=== PATIENT | male | born 1935 | race African-American/Black ===

== ENCOUNTER 2017-05-29 12:35 | Inpatient (IN) | payer MEDICARE, OTHER ==
[~2017-05-29] VITALS: Ht 177.8 cm; Wt 103.0 kg
[~2017-05-29 12:35] MED LIST: ACETAMINOP160 MG/55 ORAL; ALLOPURINOL100 M1 PO; AMLODIPINE BESY10 MG ORAL; APRESOLINE100 MG PO; ASPIRIN EC81 MG PO; BENAZEPRIL HCL10 MG ORAL; BICITRA30 ML PO; BISACODYL5 MG ORAL; CARVEDILOL6.25 MG PO; CATAPRES0.2 MG ORAL; CEFTRIAXONE1 G2 IV; COUMADIN7.5 MG ORAL; DILAUDID1 MG/M1 IVP; DOCUSATE SODIU100 MG ORAL; FAMOTIDINE20 MG PO; FLEET ENEMA133 ML RECTAL; FLOMAX0.4 MG ORAL; FUROSEMIDE40 MG PO; GENTAMICIN80 MG/50 M IV; HYDRALAZINE HC100 MG ORAL; LANTUS SOL100 UNIT/1; LASIX40 MG ORAL; LEVAQUIN750 MG ORAL; LEVOFLOXACIN250 MG ORAL; METOPROLOL TART50 M1 ORAL; NEPHROVITE1 TAB ORAL; NORCO1 E1 ORAL; NOVOLOG100 UNIT/3 SUBQ; NOVOLOG100 UNITS1 SQ; PROSCAR5 MG ORAL; RENVELA0.8 GM ORAL; STARLIX60 MG ORAL; VANCOMYCIN HCL1 G1 IVPB; VANCOMYCIN1 GM/2502 IVPB; WARFARIN SODIUM10 MG PO; ZINC SULFATE220 M1 ORAL
[2017-05-29 12:48] VITALS: BP 176/76
[2017-05-29] MEDS ORDERED: NATEGLINIDE120 MG PO (13:22)
[2017-05-29 13:23] LABS: BASOPHILS % (AUTO) 0.9 % (0.0-2.0); LYMPHOCYTES % (AUTO) 28.4 % (20.0-45.0); MEAN CORPUSCULAR HGB CONC 32.2 G/DL (32.0-36.0); MEAN CORPUSCULAR VOLUME 100 FL (80-99); MONOCYTES % (AUTO) 7.7 % (1.0-10.0); PLATELET COUNT 210 K/UL (150-450); RED BLOOD COUNT 3.72 M/UL (4.70-6.10); RED CELL DISTRIBUTION WIDTH 13.3 % (11.6-14.8); WHITE BLOOD COUNT 6.7 K/UL (4.8-10.8)
[2017-05-29 13:32] VITALS: BP 150/58
[2017-05-29 13:35] LABS: ALANINE AMINOTRANSFERASE 9 U/L (3-41); ALBUMIN/GLOBULIN RATIO 0.9 (1.0-2.7); ANION GAP 13 (5-15); ASPARTATE AMINO TRANSFERASE 12 U/L (5-40); CALCIUM 10.1 mg/dL (8.6-10.2); CARBON DIOXIDE 28 mEQ/L (20-30); CHLORIDE 95 mEQ/L (98-107); CREATININE 5.3 mg/dL (0.7-1.2); HEMOLYSIS 8; POTASSIUM 4.2 mEQ/L (3.4-4.9); SODIUM 136 mEQ/L (135-145); TOTAL PROTEIN 8.5 g/dL (6.6-8.7); TROPONIN I < 0.30 ng/mL (<=0.30)
[2017-05-29 13:45] LABS: CKMB 7.8 ng/mL (< 6.7)
[2017-05-29] MEDS ORDERED: Morphine Sulfate 2mg/ml Inj IVP PRN ×2 (13:45→16:15)
[2017-05-29 13:48] LABS: APPEARANCE,URINE CLOUDY; KETONES,URINE NEGATIVE (NEGATIVE); LEUKOCYTE ESTERASE ,URINE 2+ (NEGATIVE); NITRITE,URINE NEGATIVE (NEGATIVE); PH,URINE 9 (4.5-8.0); PROTEIN,URINE 4+ (NEGATIVE); UROBILINOGEN,URINE NORMAL MG/DL (0.0-1.0)
[2017-05-29 13:50] LABS: BACTERIA,URINE FEW /HPF; RBC,URINE TNTC /HPF (0 - 0); SQUAMOUS EPITHELIAL CELL,UR OCCASIONAL /LPF (NONE/OCC)
[2017-05-29] MEDS ORDERED: LORazepam Inj 2mg/ml 1ml IV PRN (14:00)
[2017-05-29] MEDS ORDERED: Mylanta II UD 30ml ORAL PRN (14:00)
[2017-05-29] MEDS ORDERED: cefTRIAXone 1 GM in NS 55 ML IVPB ONE (14:15)
[2017-05-29] MEDS ORDERED: HYDROmorphone 1mg/ml Carpuject IVP PRN (15:00)
--- NOTE | 2017-05-29 15:04 | Emergency Room Report ---
History of Present Illness General Chief Complaint: Male Urogenital Problems Source: Patient Present Illness HPI 82-year-old male presents ED complaining of hematuria for the last few days. Also complaining of some dysuria. Pain is a 5/10, throbbing, nonradiating. Denies fevers chills. Denies nausea or vomiting. Denies chest pain or short of breath. No other aggravating relieving factors. Denies any other associated symptoms Allergies: Coded Allergies: No Known Allergies (Unverified , 08/12/14) Patient History Past Medical History: DM, HTN, renal disease, dialysis Past Surgical History: none Pertinent Family History: none Social History: Denies: alcohol use, drug use, smoking Immunizations: UTD Reviewed Nursing Documentation: PMH: Agreed, PSxH: Agreed Nursing Documentation-PMH Hx Cardiac Problems: Yes Hx Hypertension: Yes Hx Diabetes: Yes Hx Cancer: No Hx Gastrointestinal Problems: No Hx Dialysis: Yes - M-W-F Hx Neurological Problems: No Review of Systems All Other Systems: negative except mentioned in HPI Physical Exam Vital Signs Date Time Temp Pulse Resp B/P Pulse Ox O2 Delivery O2 Flow Rate FiO2 05/29/17 12:40 98.8 84 18 176/76 98 Room Air Sp02 EP Interpretation: reviewed, normal General Appearance: no apparent distress, alert, GCS 15, non-toxic Head: normocephalic Eyes: bilateral eye PERRL, bilateral eye normal inspection ENT: normal ENT inspection Neck: normal inspection Respiratory: chest non-tender, lungs clear, normal breath sounds, speaking full sentences Cardiovascular #1: regular rate, rhythm, no edema Gastrointestinal: normal bowel sounds, non tender, soft, non-distended, no guarding, no rebound Rectal: deferred Genitourinary: no CVA tenderness Musculoskeletal: other - bilateral LE amputations Neurologic: alert, oriented x3, responsive, motor strength/tone normal, sensory intact, speech normal Psychiatric: normal inspection Skin: normal inspection Lymphatic: normal inspection Medical Decision Making Diagnostic Impression: Primary Impression: Hematuria Qualified Codes: R31.9 - Hematuria, unspecified Additional Impressions: UTI (lower urinary tract infection) ESRD (end stage renal disease) on dialysis ER Course Hospital Course 82-year-old male presents ED complaining of hematuria and dysuria Differential diagnoses include: Pneumonia, UTI, sepsis, dehydration, PA/ unstable angina Clinical course Patient placed on stretcher. On cardiac catheterization technician with stable vitals are ED course. After initial history and physical, I ordered labs, EKG, chest x-ray, blood cultures, UA. Labs - BUN/Cr elevated, no leukocytosis, troponins negative, UA grossly positive for UTI + blood EKG - NSr, no acute changes interpreted by me CXR - cardiomegaly. effusion. Abx given. Case discussed with Dr Lin and they agreed to admit patient to their service for further care and support I feel this is a highly complex case requiring extensive working including EKG/ Rhythm strip, Xray/CT/US, Blood/urine lab work, repeat exams while in ED, and administration of strong opiates/narcotics for pain control, admission to hospital or close patient follow up. Diagnosis - hematuria, UTI, ESRD Patient admitted to telemetry in serious condition Labs Test 05/29/17 13:00 05/29/17 13:25 White Blood Count 6.7 K/UL (4.8-10.8) Red Blood Count 3.72 M/UL (4.70-6.10) Hemoglobin 11.9 G/DL (14.2-18.0) Hematocrit 37.0 % (42.0-52.0) Mean Corpuscular Volume 100 FL (80-99) Mean Corpuscular Hemoglobin 32.0 PG (27.0-31.0) Mean Corpuscular Hemoglobin Concent 32.2 G/DL (32.0-36.0) Red Cell Distribution Width 13.3 % (11.6-14.8) Platelet Count 210 K/UL (150-450) Mean Platelet Volume 7.0 FL (6.5-10.1) Neutrophils (%) (Auto) 59.0 % (45.0-75.0) Lymphocytes (%) (Auto) 28.4 % (20.0-45.0) Monocytes (%) (Auto) 7.7 % (1.0-10.0) Eosinophils (%) (Auto) 4.0 % (0.0-3.0) Basophils (%) (Auto) 0.9 % (0.0-2.0) Sodium Level 136 mEQ/L (135-145) Potassium Level 4.2 mEQ/L (3.4-4.9) Chloride Level 95 mEQ/L (98-107) Carbon Dioxide Level 28 mEQ/L (20-30) Anion Gap 13 (5-15) Blood Urea Nitrogen 42 mg/dL (7-23) Creatinine 5.3 mg/dL (0.7-1.2) Estimat Glomerular Filtration Rate mL/min (>60) Glucose Level 189 mg/dL (74-106) Lactic Acid Level 1.70 mmol/L (0.66-2.22) Calcium Level 10.1 mg/dL (8.6-10.2) Total Bilirubin 0.4 mg/dL (0.0-1.2) Aspartate Amino Transf (AST/SGOT) 12 U/L (5-40) Alanine Aminotransferase (ALT/SGPT) 9 U/L (3-41) Alkaline Phosphatase 86 U/L (40-129) Total Creatine Kinase 577 U/L (38-174) Creatine Kinase MB 7.8 ng/mL (< 6.7) Creatine Kinase MB Relative Index 1.3 Troponin I < 0.30 ng/mL (<=0.30) Total Protein 8.5 g/dL (6.6-8.7) Albumin 4.1 g/dL (3.5-5.2) Globulin 4.4 g/dL Albumin/Globulin Ratio 0.9 (1.0-2.7) Urine Color Red Urine Appearance Cloudy Urine pH 9 (4.5-8.0) Urine Specific [place] 1.015 (1.005-1.035) Urine Protein 4+ (NEGATIVE) Urine Glucose (UA) 2+ (NEGATIVE) Urine Ketones Negative (NEGATIVE) Urine Occult Blood 5+ (NEGATIVE) Urine Nitrite Negative (NEGATIVE) Urine Bilirubin Negative (NEGATIVE) Urine Urobilinogen Normal MG/DL (0.0-1.0) Urine Leukocyte Esterase 2+ (NEGATIVE) Urine RBC Tntc /HPF (0 - 0) Urine WBC 10-15 /HPF (0 - 0) Urine Squamous Epithelial Cells Occasional /LPF Urine Bacteria Few /HPF (NONE) EKG Diagnostic Results Rate: normal Rhythm: NSR ST Segments: no acute changes ASA given to the pt in ED: No Rhythm Strip Diag. Results EP Interpretation: yes Rhythm: NSR, no PVC's, no ectopy Chest X-Ray Diagnostic Results Chest X-Ray Diagnostic Results : Chest X-Ray Ordered: Yes # of Views/Limited/Complete: 1 View Indication: Other EP Interpretation: Yes Interpretation: no consolidation, no pneumothorax, other - cardioegaly. b/l eff Impression: Other - cardiomegaly. b/l effusin Interpreting ER Provider: Electronically signed by Miguelito Gan MD Last Vital Signs Date Time Temp Pulse Resp B/P Pulse Ox O2 Delivery O2 Flow Rate FiO2 05/29/17 13:32 98.8 79 19 150/58 100 Room Air Status: improved Disposition: ADMITTED INPATIENT Condition: Serious Referrals: YNES LIN (PCP) MIGUELITO GAN M.D. May 29, 2017 15:04
[2017-05-29 15:26] VITALS: BP 189/95
[2017-05-29] MEDS ORDERED: cloNIDine 0.2mg Tab ORAL PRN (16:30)
[2017-05-29] MEDS: Minoxidil 2.5mg tab ORAL SCH ×2 (17:32→23:59)
[2017-05-29] MEDS: NovoLOG Insulin Flexpen SUBQ SCH ×2 (17:35→21:56)
[2017-05-29] MEDS: Renvela 800mg Pkt ORAL SCH (17:42)
[2017-05-29 19:48] VITALS: BP 177/87
[2017-05-29] MEDS ORDERED: Miralax 17gm pkt ORAL PRN (21:00)
[2017-05-29] MEDS ORDERED: cloNIDine 0.2mg Tab ORAL SCH (21:00)
[2017-05-29] MEDS ORDERED: Zolpidem 5mg tab ORAL PRN (21:00)
[2017-05-29] MEDS: Tamsulosin 0.4mg cap ORAL SCH (21:54)
[2017-05-29] MEDS: Carvedilol 6.25mg Tab ORAL SCH (21:54)
--- NOTE | 2017-05-29 22:23 | Infectious Diseases Prog Note ---
Assessment/Plan Problems: (1) UTI (lower urinary tract infection) Assessment & Plan: will send urine culture and start cefepime empirically (2) Dysuria Assessment & Plan: due to uti, will start cefepime empirically pending culture results (3) DM (diabetes mellitus) Assessment & Plan: recommend tight glycemic control to keep blood glucose between 80-120 (4) ESRD (end stage renal disease) on dialysis Assessment & Plan: on HD, renal is following Subjective Allergies: Coded Allergies: No Known Allergies (Unverified , 08/12/14) Objective Vital Signs Last 24 Hour Vital Signs Date Time Temp Pulse Resp B/P Pulse Ox O2 Delivery O2 Flow Rate FiO2 05/29/17 21:54 86 177/87 05/29/17 19:48 98.7 86 20 177/87 99 Room Air 05/29/17 19:03 83 05/29/17 17:32 175/79 05/29/17 16:28 189/95 05/29/17 16:00 87 05/29/17 15:26 98.1 90 20 189/95 96 Room Air 05/29/17 15:14 98.8 79 19 161/71 100 Room Air 05/29/17 13:32 98.8 79 19 150/58 100 Room Air 05/29/17 12:48 98.8 84 18 176/76 98 Room Air 05/29/17 12:40 98.8 84 18 176/76 98 Room Air Height (Feet): 5 Height (Inches): 10.00 Weight (Pounds): 200 Laboratory Tests Test 05/29/17 13:00 05/29/17 13:25 05/29/17 16:10 White Blood Count 6.7 K/UL (4.8-10.8) Red Blood Count 3.72 M/UL (4.70-6.10) L Hemoglobin 11.9 G/DL (14.2-18.0) L Hematocrit 37.0 % (42.0-52.0) L Mean Corpuscular Volume 100 FL (80-99) H Mean Corpuscular Hemoglobin 32.0 PG (27.0-31.0) H Mean Corpuscular Hemoglobin Concent 32.2 G/DL (32.0-36.0) Red Cell Distribution Width 13.3 % (11.6-14.8) Platelet Count 210 K/UL (150-450) Mean Platelet Volume 7.0 FL (6.5-10.1) Neutrophils (%) (Auto) 59.0 % (45.0-75.0) Lymphocytes (%) (Auto) 28.4 % (20.0-45.0) Monocytes (%) (Auto) 7.7 % (1.0-10.0) Eosinophils (%) (Auto) 4.0 % (0.0-3.0) H Basophils (%) (Auto) 0.9 % (0.0-2.0) Sodium Level 136 mEQ/L (135-145) Potassium Level 4.2 mEQ/L (3.4-4.9) Chloride Level 95 mEQ/L (98-107) L Carbon Dioxide Level 28 mEQ/L (20-30) Anion Gap 13 (5-15) Blood Urea Nitrogen 42 mg/dL (7-23) H Creatinine 5.3 mg/dL (0.7-1.2) H Estimat Glomerular Filtration Rate mL/min (>60) Glucose Level 189 mg/dL (74-106) H Lactic Acid Level 1.70 mmol/L (0.66-2.22) Calcium Level 10.1 mg/dL (8.6-10.2) Total Bilirubin 0.4 mg/dL (0.0-1.2) Aspartate Amino Transf (AST/SGOT) 12 U/L (5-40) Alanine Aminotransferase (ALT/SGPT) 9 U/L (3-41) Alkaline Phosphatase 86 U/L (40-129) Total Creatine Kinase 577 U/L (38-174) H Creatine Kinase MB 7.8 ng/mL (< 6.7) H Creatine Kinase MB Relative Index 1.3 Troponin I < 0.30 ng/mL (<=0.30) Total Protein 8.5 g/dL (6.6-8.7) Albumin 4.1 g/dL (3.5-5.2) Globulin 4.4 g/dL Albumin/Globulin Ratio 0.9 (1.0-2.7) L Urine Color Red Urine Appearance Cloudy Urine pH 9 (4.5-8.0) Urine Specific [place] 1.015 (1.005-1.035) Urine Protein 4+ (NEGATIVE) H Urine Glucose (UA) 2+ (NEGATIVE) H Urine Ketones Negative (NEGATIVE) Urine Occult Blood 5+ (NEGATIVE) H Urine Nitrite Negative (NEGATIVE) Urine Bilirubin Negative (NEGATIVE) Urine Urobilinogen Normal MG/DL (0.0-1.0) Urine Leukocyte Esterase 2+ (NEGATIVE) H Urine RBC Tntc /HPF (0 - 0) H Urine WBC 10-15 /HPF (0 - 0) H Urine Squamous Epithelial Cells Occasional /LPF Urine Bacteria Few /HPF (NONE) Calcium (Send out) Pending Phosphorus Level 4.0 mg/dL (2.5-4.8) Parathyroid Hormone (Intact) Pending Current Medications Medications (Trade) Dose Ordered Sig/Amanda Route PRN Reason Start Time Stop Time Status Last Admin Dose Admin Acetaminophen (Tylenol) 650 mg Q4H PRN ORAL fever>100.5 05/29/17 14:00 06/28/17 13:59 Al Hydroxide/Mg Hydroxide (Mylanta II) 30 ml Q6H PRN ORAL dyspepsia 05/29/17 14:00 06/28/17 13:59 Allopurinol (Zyloprim) 100 mg DAILY ORAL 05/30/17 09:00 06/29/17 08:59 Amlodipine Besylate (Norvasc) 10 mg DAILY ORAL 05/30/17 09:00 06/29/17 08:59 Benazepril HCl (Lotensin) 25 mg DAILY ORAL 05/30/17 09:00 06/29/17 08:59 Carvedilol (Coreg) 6.25 mg Q12HR ORAL 05/29/17 21:00 06/28/17 20:59 05/29/17 21:54 Cefepime HCl/ Dextrose (Maxipime/D5W) 55 ml @ 110 mls/hr EVERY 12 HOURS IVPB 05/30/17 09:00 06/06/17 08:59 UNV Clonidine HCl (Catapres) 0.2 mg TIDPRN PRN ORAL SBP > 160 05/29/17 16:30 06/28/17 16:29 05/29/17 16:28 Dextrose (Dextrose 50%) STAT PRN IV Hypoglycemia 05/29/17 15:00 06/28/17 14:59 Hydromorphone HCl (Dilaudid) 1 mg Q3H PRN IVP SEVERE PAIN 7-10 05/29/17 15:00 06/05/17 14:59 Insulin Aspart (NovoLOG) BEFORE MEALS AND HS SUBQ 05/29/17 16:30 06/28/17 16:29 05/29/17 21:56 Lorazepam (Ativan 2mg/ml 1ml) 0.5 mg Q4H PRN IV For Anxiety 05/29/17 14:00 06/05/17 13:59 Minoxidil (Loniten) 2.5 mg Q12HR ORAL 05/29/17 17:00 06/28/17 16:59 05/29/17 17:32 Morphine Sulfate 1 mg 1 mg Q4H PRN IVP For Pain Scale 4-6 05/29/17 16:15 06/05/17 13:44 Ondansetron HCl (Zofran) 4 mg Q6H PRN IVP Nausea & Vomiting 05/29/17 14:00 06/28/17 13:59 Polyethylene Glycol (Miralax) 17 gm HSPRN PRN ORAL Constipation 05/29/17 21:00 06/28/17 20:59 Sevelamer Carbonate (Renvela) 800 mg THREE TIMES A DAY ORAL 05/29/17 18:00 06/28/17 17:59 05/29/17 17:42 Tamsulosin HCl (Flomax) 0.4 mg QHS ORAL 05/29/17 21:00 06/28/17 20:59 05/29/17 21:54 Zolpidem Tartrate (Ambien) 5 mg HSPRN PRN ORAL Insomnia 05/29/17 21:00 06/28/17 20:59 Christin Riley M.D. May 29, 2017 22:23
[2017-05-29 23:51] VITALS: BP 145/88
--- NOTE | 2017-05-30 01:00 | Consultation ---
DATE OF CONSULTATION: 05/29/2017 CARDIOLOGY CONSULTATION REFERRING PHYSICIAN: Varun Cee D.O. REASON FOR CONSULTATION: Management of accelerated hypertension. HISTORY OF PRESENT ILLNESS: The patient is a very delightful 82-year-old gentleman, who presents to the hospital with complaints of hematuria and dysuria. The patient on arrival to the hospital had blood pressure of 176/76 mmHg. He has end-stage renal disease with uncontrolled hypertension. Cardiology consultation was made at the request of Dr. Cee for management of this condition. During his stay in the emergency department, the blood pressure was as high as 189/95 mmHg. PAST MEDICAL HISTORY: Includes diabetes mellitus, end-stage renal disease on hemodialysis, hypertension, peripheral arterial disease, and status post bilateral [id number]-[id number]-[id number] amputation. PAST SURGICAL HISTORY: Bilateral [id number]-[id number] amputation. MEDICATIONS: List of medications acetaminophen 650 mg q.4 h. p.r.n. pain and fever, allopurinol 100 mg p.o. daily, amlodipine 10 mg p.o. daily, aspirin 81 mg p.o. daily, benazepril 20 mg p.o. daily, bisacodyl 10 mg p.o. b.i.d., carvedilol 6.25 mg p.o. twice daily, ceftriaxone 1 g IV daily, Catapres 0.2 mg q.12 h., Colace 100 mg p.o. twice daily, famotidine 20 mg p.o. twice daily, finasteride 5 mg p.o. daily, Lasix 40 mg p.o. daily, hydralazine 100 mg p.o. three times daily, [place] 7.5/325 mg one tablet q.4 h. p.r.n. pain, insulin NovoLog 6 units subcutaneous before meals, insulin Lantus 20 units every day at breakfast time, levofloxacin 250 mg p.o. daily, metoprolol 50 mg p.o. twice daily, Fleet Enema 133 mL rectal daily, Starlix 60 mg three times daily, Renvela 800 mg three times daily, sodium citrate 30 mL p.o. t.i.d., Flomax 0.4 mg nightly, warfarin 10 mg half a tablet daily, and zinc sulfate 220 mg daily. SOCIAL HISTORY: Denies any tobacco, alcohol, or illicit drug use. FAMILY HISTORY: No premature coronary artery disease in the first-degree relatives. REVIEW OF SYSTEMS: HEENT: Denies any headache, diplopia, or blurred vision. Constitutional: Denies any fever, chills, night sweats, or weight loss. Cardiovascular: Denies any chest pain, shortness breath, PND, or orthopnea. The patient gets around in wheelchair and not having much activities. Pulmonary: Denies any cough, hemoptysis, or wheezing. Gastrointestinal: Denies any nausea, vomiting, diarrhea, constipation, abdominal pain, or GI bleed. Genitourinary: Hematuria and dysuria. Neurologic: Denies any motor dysfunction, sensory deficit, or altered speech. Musculoskeletal: The patient has amputation of both legs below the knee. PHYSICAL EXAMINATION: VITAL SIGNS: Blood pressure upon arrival to the ED 176/76, respirations of 18, pulse of 84, temperature 98.2 degrees Fahrenheit, and O2 saturation of 98% on room air. GENERAL: The patient is a very delightful 82-year-old gentleman, in no apparent respiratory distress. HEENT: Atraumatic and normocephalic. Pupils are equal, round, and reactive to light and accommodation. Extraocular muscles intact. NECK: JVP less than 5 cm. No carotid bruit. Carotid upstrokes 2+ bilaterally. LUNGS: Clear to auscultation bilaterally. CARDIOVASCULAR: Normal S1 and S2. Regular rate and rhythm. No murmurs, gallops, or rubs. PMI is at fourth intercostal space at the midclavicular line. ABDOMEN: Soft, nontender, and nondistended. No hepatosplenomegaly. Positive bowel sounds. EXTREMITIES: No evidence of edema, clubbing, or cyanosis. DIAGNOSTIC DATA: A 2D echocardiography from February 2016 had shown moderate concentric left ventricular hypertrophy, LVEF of 65% to 70%, large pleural effusion, small pericardial effusion, grade 1 LV diastolic dysfunction, and mild pulmonary regurgitation. LABORATORY FINDINGS: WBC 6.7, hemoglobin 11.9, hematocrit 37, and platelet count is 210,000. Sodium is 136, potassium is 4.2, chloride 95, bicarbonate is 28, BUN of 42, and creatinine of 5.3. Troponin I less than 0.3. The 12-lead electrocardiogram shows sinus rhythm at a rate of [address] axis. No ST and T-wave abnormalities. ASSESSMENT AND PLAN: The patient is a very pleasant, 82-year-old gentleman, who is seen in Cardiology consultation at the request of Dr. Cee. 1. Accelerated hypertension. I would like to continue the patient's carvedilol and most likely increasing the dose of this medication over the next few days to an optimal 25 mg twice daily. Instead of hydralazine, I would like to start him on low dose of minoxidil. Hopefully can eliminate the Catapres around the clock basis and use it as needed. I will continue monitoring the blood pressure throughout the stay. A 2D echocardiography from February 2016 had shown hypertensive heart disease with left ventricular ejection fraction of about approximately 60% and grade 1 left ventricular diastolic dysfunction. I will obtain another one since this has been more than a year we had 2D echocardiography from him. 2. End-stage renal disease. 3. Hematuria/dysuria, concerned about urinary tract infection. 4. History of . The patient will benefit from combination of aspirin and atorvastatin. 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 We will start him on 40 mg of atorvastatin at night time. I would like to thank, Dr. Cee, for allowing me to participate in care of this patient. Franklyn Mckeon M.D. DR: Omar JOB#: [id number] CC:
--- NOTE | 2017-05-30 01:15 | Consultation ---
DATE OF CONSULTATION: 05/29/2017 NEPHROLOGY CONSULTATION REFERRING PHYSICIAN: Dr reddy REASON FOR CONSULTATION: End-stage renal disease, need for dialysis. HISTORY OF PRESENT ILLNESS: The patient is an unfortunate 82-year-old male with past medical history significant for history of BPH; history of TURP; history of bilateral lower extremity amputation; history of hypertension and diabetes; history of PermCath and fistula placement, currently receiving dialysis catheter through the left upper extremity; history of vertebral osteomyelitis; and history of chronic hematuria in the past with a kidney stone. At this time, he presented to [facility] [place] complaining of hematuria. Apparently, the patient had hematuria, 3 about last week. After he had his dialysis, he came home and he had a painless hematuria and he has been having it for the last few days. So, he presented to emergency room and got admitted with a diagnosis of hematuria and end-stage renal disease. I was called for management of renal disease and electrolyte imbalance. PAST MEDICAL HISTORY: 1. History of end-stage renal disease. 2. Anemia of chronic kidney disease. 3. Renal osteodystrophy. 4. Hypertension. 5. Diabetes. 6. Dyslipidemia. 7. History of Benign prostatic hypertrophy. 8. History of gout. 9. History of kidney stone. 10. History of osteomyelitis of the L4-L5. PAST SURGICAL HISTORY: 1. History of bilateral lower extremity amputation. 2. History of TURP. 3. History of AV fistula placement. 4. History of PermCath placement. HOME MEDICATIONS: 1. Flomax. 2. Lactulose. 3. Allopurinol. 4. Norvasc. 5. Temazepam. 6. Metoprolol. 7. Proscar. ALLERGIES: No known drug allergies. SOCIAL HISTORY: He lives at home with the family. His daughter and his granddaughter are taking care of him. There is no history of tobacco, alcohol, or drug use. FAMILY HISTORY: Noncontributory. REVIEW OF SYSTEMS: General: He complained of generalized weakness. Denied any fever, chills, or night sweats. Head And Neck: Denies any dysphagia, odynophagia, blurry vision, headache, or neck stiffness. Pulmonary: Denies any shortness of breath, cough, or sputum. Cardiovascular: Denies any chest pain or palpitation. Gastrointestinal: Denies any nausea, vomiting, diarrhea, hematemesis, or hematochezia. Genitourinary: Complained of hematuria. No dysuria. No frequency. No hesitancy. PHYSICAL EXAMINATION: GENERAL: The patient has temperature of 98 degrees, blood pressure 176/76, pulse rate of 84, and respiratory rate of 18. HEAD AND NECK: No JVP. No LAD. No thyromegaly. Extraocular movements intact. Pupils are reactive to light and accommodation. LUNGS: Clear to auscultation. CARDIAC: Regular rate and rhythm. S1 and S2. No murmur. No rub. ABDOMEN: Soft, nontender, and nondistended. EXTREMITIES: Bilateral ghdmz-flm-[id number] amputation. No clubbing. No cyanosis. The patient has a Houser catheter draining some bloody urine. LABORATORY VALUES: The patient had WBC count of 6.7, hemoglobin of 11.9, hematocrit of 37, and platelet count of 210,000. Chemistry reveals sodium of 136, potassium 4.2, chloride 95, bicarbonate 28, BUN of 42, creatinine of 5.3, and glucose of 189. Calcium of 10.1. AST of 12, ALT of 9, and total CPK of 577. His urine has hematuria. The patient's x-ray is still pending. ASSESSMENT: 1. End-stage renal disease. 2. Anemia of chronic kidney disease. 3. Renal osteodystrophy. 4. Hypertension. 5. Hematuria. 6. History of kidney stone. PLAN: Plan for the patient to receive dialysis on Tuesday, Tuesday, and Tuesday. Check calcium, phosphorus, and PTH for evaluation of renal osteodystrophy. I would also consider CT of the abdomen for evaluation of bladder and kidney. Consider urology consultation. Consider you start antihypertensive medication. Goal of blood pressure for this patient is less than 130/75. Monitoring electrolytes closely. At the end, I would like to thank Dr. Varun Reddy for allowing me to participate in the care of this patient. aJida Garzon M.D. DR: MERCED JOB#: [id number] CC: TRITSAN
[2017-05-30 03:48] VITALS: BP 119/60
[2017-05-30] MEDS: NovoLOG Insulin Flexpen SUBQ SCH ×4 (06:11→21:06)
[2017-05-30 08:00] VITALS: BP 131/67
[2017-05-30 08:04] LABS: BASOPHILS % (AUTO) 0.6 % (0.0-2.0); EOSINOPHILS % (AUTO) 2.3 % (0.0-3.0); MEAN CORPUSCULAR HEMOGLOBIN 33.5 PG (27.0-31.0); MEAN CORPUSCULAR HGB CONC 33.6 G/DL (32.0-36.0); MEAN CORPUSCULAR VOLUME 100 FL (80-99); MEAN PLATELET VOLUME 6.8 FL (6.5-10.1); MONOCYTES % (AUTO) 6.3 % (1.0-10.0); NEUTROPHILS % (AUTO) 78.8 % (45.0-75.0); PLATELET COUNT 169 K/UL (150-450); RED BLOOD COUNT 3.12 M/UL (4.70-6.10); WHITE BLOOD COUNT 7.6 K/UL (4.8-10.8)
[2017-05-30 08:22] LABS: ALANINE AMINOTRANSFERASE 7 U/L (3-41); ALBUMIN/GLOBULIN RATIO 0.8 (1.0-2.7); ANION GAP 11 (5-15); ASPARTATE AMINO TRANSFERASE 11 U/L (5-40); CALCIUM 9.2 mg/dL (8.6-10.2); CARBON DIOXIDE 26 mEQ/L (20-30); CHLORIDE 95 mEQ/L (98-107); CHOLESTEROL 138 mg/dL (< 200); CHOLESTEROL/HDL RATIO 6.3 (3.3-4.4); CREATININE 6.1 mg/dL (0.7-1.2); HEMOLYSIS 3; LDL CHOLESTEROL (CALC.) 77 mg/dL (60-99); POTASSIUM 4.7 mEQ/L (3.4-4.9); SODIUM 132 mEQ/L (135-145)
[2017-05-30] MEDS: Minoxidil 2.5mg tab ORAL SCH ×2 (09:00→21:07)
[2017-05-30] MEDS ORDERED: Cefepime HCl 1 GM in D5W 55 ML IVPB SCH (09:00)
[2017-05-30] MEDS ORDERED: Benazepril 10mg tab ORAL SCH (09:00)
[2017-05-30] MEDS: Carvedilol 6.25mg Tab ORAL SCH ×2 (09:00→21:07)
[2017-05-30] MEDS: Allopurinol 100mg Tab ORAL SCH (09:21)
[2017-05-30] MEDS: Renvela 800mg Pkt ORAL SCH ×3 (09:21→18:07)
--- NOTE | 2017-05-30 10:25 | Diagnostic Imaging Report ---
Indication: WEAK Technique: One view of the chest Comparison: none Findings: There is a large left-sided pleural effusion again demonstrated. The lungs and pleural spaces are otherwise clear. Heart size is normal. Impression: Large left pleural effusion versus chronic thickening, similar to prior study 02/18/2016
--- NOTE | 2017-05-30 11:34 | Consultation ---
History of Present Illness General Date patient seen: May 30, 2017 Chief Complaint: Male Urogenital Problems Referring physician: Dr. Cee Reason for Consultation: Pleural effusion Present Illness HPI 82-year-old male with hx of DM bilateral BKA presents to ED complaining of hematuria and some dysuria for the last few days. Pain is a 5/10, throbbing, nonradiating. Denies fevers chills. Denies nausea or vomiting. Denies chest pain or short of breath. No other aggravating relieving factors. Denies any other associated symptoms. Pt is amitted to telemetry for Gross Hematuria. His CXR showed pleural effusion. I was asked to evaluate his pleural effusion Allergies: Coded Allergies: No Known Allergies (Unverified , 08/12/14) Medication History Scheduled Amlodipine Besylate* (Amlodipine Besylate*), 10 MG ORAL DAILY, (Reported) Benazepril Hcl* (Benazepril Hcl*), 25 MG ORAL DAILY, (Reported) Bisacodyl* (Dulcolax*), 10 MG ORAL BID, (Reported) Carvedilol* (Carvedilol*), 625 PO BID, (Reported) Clonidine Hcl* (Catapres*), 0.2 MG ORAL Q12HR, (Reported) Docusate Sodium* (Docusate Sodium*), 100 MG ORAL TWICE A DAY, (Reported) Famotidine (Famotidine), 20 PO BID, (Reported) Finasteride* (Proscar*), 5 MG ORAL DAILY, (Reported) Gentamicin In Nacl, Iso-Osm (Gentamicin 80 Mg/Ns 50 Ml Pb), 80 MG IV EVERY OTHER DAY Hydralazine HCl (Hydralazine HCl), 100 PO TID, (Reported) Hydralazine Hcl* (Hydralazine Hcl*), 100 MG ORAL EVERY 8 HOURS, (Reported) Hydromorphone HCl (Hydromorphone HCl), 1 MG IVP Q3HR, (Reported) Insulin Aspart (Novolog Flexpen), 6 UNITS SQ AC, (Reported) Insulin Aspart* (Novolog*), 0 SUBQ AC+HS, (Reported) Insulin Glargine (Lantus), 20 UNIT ACBREAKFAST, (Reported) Levofloxacin (Levofloxacin*), 250 MG ORAL DAILY, (Reported) Metoprolol Tartrate* (Metoprolol Tartrate*), 50 MG ORAL EVERY 12 HOURS, ( Reported) Na Phos,M-B/Na Phos,Di-Ba* (Fleet Enema*), 133 ML RECTAL DAILY, (Reported) Nateglinide (Nateglinide), 120 MG PO DAILY, (Reported) Nateglinide* (Starlix*), 60 MG ORAL THREE TIMES A DAY, (Reported) Sevelamer Carbonate* (Renvela*), 800 MG ORAL THREE TIMES A DAY, (Reported) Sodium Citrate (Sod Citrate-Citric Acid Soln), 30 ML PO TID, (Reported) Tamsulosin HCl (Flomax), 0.4 MG ORAL QHS, (Reported) Vancomycin Hcl/D5w (Vancomycin-D5w 1 G/250 Ml), 1 GM IVPB EVERY OTHER DAY Vitamin B Cmplx/Vit C/Folic AC (Nephro-Pj Tablet), 1 TAB ORAL DAILY, (Reported ) Warfarin Sod* (Warfarin Sod*), 0.5 PO DAILY, (Reported) Zinc Sulfate (Zinc Sulfate*), 220 MG ORAL DAILY, (Reported) Scheduled PRN Acetaminophen* (Acetaminophen*), 650 MG ORAL Q4HR PRN for Mild Pain/Temp > 100.5 , (Reported) Acetaminophen/Hydrocodone (Somers 7.5-325 Tablet), 1 TAB ORAL Q4HR PRN for Moderate Pain (Pain Scale 4-6), (Reported) Miscellaneous Medications Allopurinol* (Allopurinol*), 100 PO, (Reported) Aspirin Ec* (Aspirin Ec*), 81 PO, (Reported) Ceftriaxone Sodium (Ceftriaxone), 1 GM IV, (Reported) Furosemide* (Lasix*), 40 PO, (Reported) Patient History Healthcare decision maker Resuscitation status Advanced Directive on File Past Medical/Surgical History Past Medical/Surgical History: (1) DM (diabetes mellitus) (2) History of below knee amputation (3) Anemia in CKD (chronic kidney disease) (4) ESRD (end stage renal disease) on dialysis Review of Systems All Other Systems: negative except mentioned in HPI Physical Exam General Appearance: WD/WN, no apparent distress Lines, tubes and drains: peripheral, central line HEENT: normocephalic, atraumatic Neck: non-tender, normal alignment, supple Respiratory/Chest: chest wall non-tender, lungs clear Cardiovascular/Chest: normal peripheral pulses, normal rate Abdomen: normal bowel sounds, non tender Genitourinary/Rectal: normal genital exam, normal rectal exam Extremities: normal range of motion, other - BKA Last 24 Hour Vital Signs Date Time Temp Pulse Resp B/P Pulse Ox O2 Delivery O2 Flow Rate FiO2 05/30/17 08:00 98.2 74 20 131/67 97 Room Air 05/30/17 03:48 98.1 71 20 119/60 95 Room Air 05/30/17 03:47 70 05/30/17 00:00 86 05/29/17 23:59 145/88 05/29/17 23:51 98.4 75 21 145/88 97 Room Air 05/29/17 21:54 86 177/87 05/29/17 19:48 98.7 86 20 177/87 99 Room Air 05/29/17 19:03 83 05/29/17 17:32 175/79 05/29/17 16:28 189/95 05/29/17 16:00 87 05/29/17 15:26 98.1 90 20 189/95 96 Room Air 05/29/17 15:14 98.8 79 19 161/71 100 Room Air 05/29/17 13:32 98.8 79 19 150/58 100 Room Air 05/29/17 12:48 98.8 84 18 176/76 98 Room Air 05/29/17 12:40 98.8 84 18 176/76 98 Room Air Intake and Output 05/29/17 05/30/17 19:00 07:00 Intake Total 1055 ml Output Total 0 ml 700 ml Balance 1055 ml -700 ml Intake IV Total 1055 ml Output Urine Total 0 ml 700 ml # Bowel Movements 1 Laboratory Tests Test 05/29/17 13:00 05/29/17 13:25 05/29/17 16:10 05/30/17 07:00 White Blood Count 6.7 K/UL (4.8-10.8) 7.6 K/UL (4.8-10.8) Red Blood Count 3.72 M/UL (4.70-6.10) L 3.12 M/UL (4.70-6.10) L Hemoglobin 11.9 G/DL (14.2-18.0) L 10.5 G/DL (14.2-18.0) L Hematocrit 37.0 % (42.0-52.0) L 31.2 % (42.0-52.0) L Mean Corpuscular Volume 100 FL (80-99) H 100 FL (80-99) H Mean Corpuscular Hemoglobin 32.0 PG (27.0-31.0) H 33.5 PG (27.0-31.0) H Mean Corpuscular Hemoglobin Concent 32.2 G/DL (32.0-36.0) 33.6 G/DL (32.0-36.0) Red Cell Distribution Width 13.3 % (11.6-14.8) 13.0 % (11.6-14.8) Platelet Count 210 K/UL (150-450) 169 K/UL (150-450) Mean Platelet Volume 7.0 FL (6.5-10.1) 6.8 FL (6.5-10.1) Neutrophils (%) (Auto) 59.0 % (45.0-75.0) 78.8 % (45.0-75.0) H Lymphocytes (%) (Auto) 28.4 % (20.0-45.0) 12.0 % (20.0-45.0) L Monocytes (%) (Auto) 7.7 % (1.0-10.0) 6.3 % (1.0-10.0) Eosinophils (%) (Auto) 4.0 % (0.0-3.0) H 2.3 % (0.0-3.0) Basophils (%) (Auto) 0.9 % (0.0-2.0) 0.6 % (0.0-2.0) Sodium Level 136 mEQ/L (135-145) 132 mEQ/L (135-145) L Potassium Level 4.2 mEQ/L (3.4-4.9) 4.7 mEQ/L (3.4-4.9) Chloride Level 95 mEQ/L (98-107) L 95 mEQ/L (98-107) L Carbon Dioxide Level 28 mEQ/L (20-30) 26 mEQ/L (20-30) Anion Gap 13 (5-15) 11 (5-15) Blood Urea Nitrogen 42 mg/dL (7-23) H 51 mg/dL (7-23) H Creatinine 5.3 mg/dL (0.7-1.2) H 6.1 mg/dL (0.7-1.2) H Estimat Glomerular Filtration Rate mL/min (>60) mL/min (>60) Glucose Level 189 mg/dL (74-106) H 195 mg/dL (74-106) H Lactic Acid Level 1.70 mmol/L (0.66-2.22) Calcium Level 10.1 mg/dL (8.6-10.2) 9.2 mg/dL (8.6-10.2) Total Bilirubin 0.4 mg/dL (0.0-1.2) 0.5 mg/dL (0.0-1.2) Aspartate Amino Transf (AST/SGOT) 12 U/L (5-40) 11 U/L (5-40) Alanine Aminotransferase (ALT/SGPT) 9 U/L (3-41) 7 U/L (3-41) Alkaline Phosphatase 86 U/L (40-129) 63 U/L (40-129) Total Creatine Kinase 577 U/L (38-174) H Creatine Kinase MB 7.8 ng/mL (< 6.7) H Creatine Kinase MB Relative Index 1.3 Troponin I < 0.30 ng/mL (<=0.30) Total Protein 8.5 g/dL (6.6-8.7) 7.0 g/dL (6.6-8.7) Albumin 4.1 g/dL (3.5-5.2) 3.3 g/dL (3.5-5.2) L Globulin 4.4 g/dL 3.7 g/dL Albumin/Globulin Ratio 0.9 (1.0-2.7) L 0.8 (1.0-2.7) L Urine Color Red Urine Appearance Cloudy Urine pH 9 (4.5-8.0) Urine Specific [place]rice 1.015 (1.005-1.035) Urine Protein 4+ (NEGATIVE) H Urine Glucose (UA) 2+ (NEGATIVE) H Urine Ketones Negative (NEGATIVE) Urine Occult Blood 5+ (NEGATIVE) H Urine Nitrite Negative (NEGATIVE) Urine Bilirubin Negative (NEGATIVE) Urine Urobilinogen Normal MG/DL (0.0-1.0) Urine Leukocyte Esterase 2+ (NEGATIVE) H Urine RBC Tntc /HPF (0 - 0) H Urine WBC 10-15 /HPF (0 - 0) H Urine Squamous Epithelial Cells Occasional /LPF Urine Bacteria Few /HPF (NONE) Calcium (Send out) Pending Phosphorus Level 4.0 mg/dL (2.5-4.8) Parathyroid Hormone (Intact) Pending Triglycerides Level 193 mg/dL (< 150) H Cholesterol Level 138 mg/dL (< 200) LDL Cholesterol 77 mg/dL (60-99) HDL Cholesterol 22 mg/dL (> 60) Cholesterol/HDL Ratio 6.3 (3.3-4.4) H Microbiology Date/Time Source Procedure Growth Status 05/29/17 13:25 Urine,Clean Catch Urine Culture - Preliminary Resulted Height (Feet): 5 Height (Inches): 10.00 Weight (Pounds): 227 Medications Current Medications Medications (Trade) Dose Ordered Sig/Amanda Route PRN Reason Start Time Stop Time Status Last Admin Dose Admin Acetaminophen (Tylenol) 650 mg Q4H PRN ORAL fever>100.5 05/29/17 14:00 06/28/17 13:59 Al Hydroxide/Mg Hydroxide (Mylanta II) 30 ml Q6H PRN ORAL dyspepsia 05/29/17 14:00 06/28/17 13:59 Allopurinol (Zyloprim) 100 mg DAILY ORAL 05/30/17 09:00 06/29/17 08:59 05/30/17 09:21 Amlodipine Besylate (Norvasc) 10 mg DAILY ORAL 05/30/17 09:00 06/29/17 08:59 Benazepril HCl (Lotensin) 25 mg DAILY ORAL 05/30/17 09:00 06/29/17 08:59 Carvedilol (Coreg) 6.25 mg Q12HR ORAL 05/29/17 21:00 06/28/17 20:59 05/29/17 21:54 Cefepime HCl/ Dextrose (Maxipime/D5W) 55 ml @ 110 mls/hr Q24H IVPB 05/30/17 09:00 06/06/17 08:59 05/30/17 09:27 Clonidine HCl (Catapres) 0.2 mg TIDPRN PRN ORAL SBP > 160 05/29/17 16:30 06/28/17 16:29 05/29/17 16:28 Dextrose (Dextrose 50%) STAT PRN IV Hypoglycemia 05/29/17 15:00 06/28/17 14:59 Hydromorphone HCl (Dilaudid) 1 mg Q3H PRN IVP SEVERE PAIN 7-10 05/29/17 15:00 06/05/17 14:59 Insulin Aspart (NovoLOG) BEFORE MEALS AND HS SUBQ 05/29/17 16:30 06/28/17 16:29 05/30/17 06:11 Lorazepam (Ativan 2mg/ml 1ml) 0.5 mg Q4H PRN IV For Anxiety 05/29/17 14:00 06/05/17 13:59 Minoxidil (Loniten) 2.5 mg Q12HR ORAL 05/29/17 17:00 06/28/17 16:59 05/29/17 17:32 Morphine Sulfate 1 mg 1 mg Q4H PRN IVP For Pain Scale 4-6 05/29/17 16:15 06/05/17 13:44 Ondansetron HCl (Zofran) 4 mg Q6H PRN IVP Nausea & Vomiting 05/29/17 14:00 06/28/17 13:59 Polyethylene Glycol (Miralax) 17 gm HSPRN PRN ORAL Constipation 05/29/17 21:00 06/28/17 20:59 Sevelamer Carbonate (Renvela) 800 mg THREE TIMES A DAY ORAL 05/29/17 18:00 06/28/17 17:59 05/30/17 09:21 Tamsulosin HCl (Flomax) 0.4 mg QHS ORAL 05/29/17 21:00 06/28/17 20:59 05/29/17 21:54 Zolpidem Tartrate (Ambien) 5 mg HSPRN PRN ORAL Insomnia 05/29/17 21:00 06/28/17 20:59 Assessment/Plan Problem List: (1) Pleural effusion, left ICD Codes: J90 - Pleural effusion, not elsewhere classified SNOMED: 94580735 (2) Hematuria ICD Codes: R31.9 - Hematuria SNOMED: 80446612 Qualifiers: Qualified Codes: R31.9 - Hematuria, unspecified (3) Anemia in CKD (chronic kidney disease) ICD Codes: N18.9 - Chronic kidney disease, unspecified; D63.1 - Anemia in chronic kidney disease SNOMED: 617042520 (4) DM (diabetes mellitus) ICD Codes: E11.9 - DM (diabetes mellitus) SNOMED: 10154480 (5) ESRD (end stage renal disease) on dialysis ICD Codes: N18.6 - End stage renal disease; Z99.2 - Dependence on renal dialysis SNOMED: 140747117 (6) History of below knee amputation ICD Codes: Z89.519 - Acquired absence of unspecified leg below knee SNOMED: 441805368, 439654269 Assessment/Plan US of left chest urology evaluation renal for HD check electrolytes anemia w/u hold heparin, aspirin etc. scd for dvt prophylaxis TERESO PINK May 30, 2017 11:34
[2017-05-30 12:00] VITALS: BP 138/58
--- NOTE | 2017-05-30 14:30 | Cardiology Report ---
APPROVED REPORT EXAM: Two-dimensional and M-mode echocardiogram with Doppler and color Doppler. INDICATION Cardiomyopathy M-Mode DIMENSIONS IVSd1.1 (0.7-1.1cm)Left Atrium (MM)4.4 (1.6-4.0cm) LVDd4.4 (3.5-5.6cm)Aortic Root3.1 (2.0-3.7cm) PWd0.8 (0.7-1.1cm)Aortic Cusp Exc.1.8 (1.5-2.0cm) LVDs1.8 (2.5-4.0cm) PWs0.7 cm Technically difficult study due to poor acoustic windows. Study quality precludes accurate assessment of regional wall motion. Normal left ventricular chamber size, systolic function and wall motion. Left ventricular ejection fraction estimated to be 60-65%. Mild left ventricular hypertrophy. No evidence of pericardial fat or effusion. All other cardiac chamber sizes are within normal limits. Focal aortic valve sclerosis with adequate cusp excursion Thickened mitral valve leaflets with normal excursion. Mitral annulus and aortic root calcification. Pulmonic valve not well visualized. Normal tricuspid valve structure. IVC not obtainable. A color flow and spectral Doppler study was performed and revealed: No aortic regurgitation. Trace mitral regurgitation. Left ventricular diastolic dysfunction grade 1. No tricuspid regurgitation. Pulmonic regurgitation present.
--- NOTE | 2017-05-30 15:05 | Infectious Diseases Prog Note ---
Assessment/Plan Problems: (1) UTI (lower urinary tract infection) Assessment & Plan: will send urine culture and start cefepime empirically (2) Dysuria Assessment & Plan: due to uti, will start cefepime empirically pending culture results (3) DM (diabetes mellitus) Assessment & Plan: recommend tight glycemic control to keep blood glucose between 80-120 (4) ESRD (end stage renal disease) on dialysis Assessment & Plan: on HD, renal is following (5) Acute thromboembolism of right popliteal vein Assessment & Plan: recommend anticoagulation and IVF filter if continues to have hematuria , recommend hematology consult (6) Pleural effusion, left Assessment & Plan: recommend thoracentesis and fluids to be sent for culture, gram stain, fungal and AFB . and cytology Subjective Constitutional: Reports: no symptoms HEENT: Reports: no symptoms Respiratory: Reports: no symptoms Breasts: Reports: no symptoms Cardiovascular: Reports: no symptoms Gastrointestinal/Abdominal: Reports: no symptoms Genitourinary: Reports: hematuria Neurologic: Reports: no symptoms Psychiatric: Reports: no symptoms Skin: Reports: no symptoms Endocrine: Reports: no symptoms Hematologic: Reports: no symptoms Allergies: Coded Allergies: No Known Allergies (Unverified , 08/12/14) Objective Vital Signs Last 24 Hour Vital Signs Date Time Temp Pulse Resp B/P Pulse Ox O2 Delivery O2 Flow Rate FiO2 05/30/17 12:00 99.9 77 20 138/58 97 Room Air 05/30/17 08:00 98.2 74 20 131/67 97 Room Air 05/30/17 03:48 98.1 71 20 119/60 95 Room Air 05/30/17 03:47 70 05/30/17 00:00 86 05/29/17 23:59 145/88 05/29/17 23:51 98.4 75 21 145/88 97 Room Air 05/29/17 21:54 86 177/87 05/29/17 19:48 98.7 86 20 177/87 99 Room Air 05/29/17 19:03 83 05/29/17 17:32 175/79 05/29/17 16:28 189/95 05/29/17 16:00 87 05/29/17 15:26 98.1 90 20 189/95 96 Room Air 05/29/17 15:14 98.8 79 19 161/71 100 Room Air Height (Feet): 5 Height (Inches): 10.00 Weight (Pounds): 227 General Appearance: WD/WN, no acute distress HEENT: normocephalic, atraumatic, anicteric Respiratory/Chest: chest wall non-tender, lungs clear, normal breath sounds, no respiratory distress, no accessory muscle use Cardiovascular: normal peripheral pulses, normal rate, regular rhythm, no gallop/murmur, no JVD Abdomen: normal bowel sounds, soft, non tender, no organomegaly, non distended , no mass Extremities: no cyanosis, no clubbing Skin: no rash, no lesions Neurologic/Psychiatric: alert, oriented x 3 Microbiology Date/Time Source Procedure Growth Status 05/29/17 13:25 Urine,Clean Catch Urine Culture - Preliminary Resulted Laboratory Tests Test 05/29/17 16:10 05/30/17 07:00 Calcium (Send out) Pending Phosphorus Level 4.0 mg/dL (2.5-4.8) Parathyroid Hormone (Intact) Pending White Blood Count 7.6 K/UL (4.8-10.8) Red Blood Count 3.12 M/UL (4.70-6.10) L Hemoglobin 10.5 G/DL (14.2-18.0) L Hematocrit 31.2 % (42.0-52.0) L Mean Corpuscular Volume 100 FL (80-99) H Mean Corpuscular Hemoglobin 33.5 PG (27.0-31.0) H Mean Corpuscular Hemoglobin Concent 33.6 G/DL (32.0-36.0) Red Cell Distribution Width 13.0 % (11.6-14.8) Platelet Count 169 K/UL (150-450) Mean Platelet Volume 6.8 FL (6.5-10.1) Neutrophils (%) (Auto) 78.8 % (45.0-75.0) H Lymphocytes (%) (Auto) 12.0 % (20.0-45.0) L Monocytes (%) (Auto) 6.3 % (1.0-10.0) Eosinophils (%) (Auto) 2.3 % (0.0-3.0) Basophils (%) (Auto) 0.6 % (0.0-2.0) Sodium Level 132 mEQ/L (135-145) L Potassium Level 4.7 mEQ/L (3.4-4.9) Chloride Level 95 mEQ/L (98-107) L Carbon Dioxide Level 26 mEQ/L (20-30) Anion Gap 11 (5-15) Blood Urea Nitrogen 51 mg/dL (7-23) H Creatinine 6.1 mg/dL (0.7-1.2) H Estimat Glomerular Filtration Rate mL/min (>60) Glucose Level 195 mg/dL (74-106) H Calcium Level 9.2 mg/dL (8.6-10.2) Total Bilirubin 0.5 mg/dL (0.0-1.2) Aspartate Amino Transf (AST/SGOT) 11 U/L (5-40) Alanine Aminotransferase (ALT/SGPT) 7 U/L (3-41) Alkaline Phosphatase 63 U/L (40-129) Total Protein 7.0 g/dL (6.6-8.7) Albumin 3.3 g/dL (3.5-5.2) L Globulin 3.7 g/dL Albumin/Globulin Ratio 0.8 (1.0-2.7) L Triglycerides Level 193 mg/dL (< 150) H Cholesterol Level 138 mg/dL (< 200) LDL Cholesterol 77 mg/dL (60-99) HDL Cholesterol 22 mg/dL (> 60) Cholesterol/HDL Ratio 6.3 (3.3-4.4) H Current Medications Medications (Trade) Dose Ordered Sig/Amanda Route PRN Reason Start Time Stop Time Status Last Admin Dose Admin Acetaminophen (Tylenol) 650 mg Q4H PRN ORAL fever>100.5 05/29/17 14:00 06/28/17 13:59 Al Hydroxide/Mg Hydroxide (Mylanta II) 30 ml Q6H PRN ORAL dyspepsia 05/29/17 14:00 06/28/17 13:59 Allopurinol (Zyloprim) 100 mg DAILY ORAL 05/30/17 09:00 06/29/17 08:59 05/30/17 09:21 Amlodipine Besylate (Norvasc) 10 mg DAILY ORAL 05/30/17 09:00 06/29/17 08:59 Benazepril HCl (Lotensin) 25 mg DAILY ORAL 05/30/17 09:00 06/29/17 08:59 Carvedilol (Coreg) 6.25 mg Q12HR ORAL 05/29/17 21:00 06/28/17 20:59 05/29/17 21:54 Cefepime HCl/ Dextrose (Maxipime/D5W) 55 ml @ 110 mls/hr Q24H IVPB 05/30/17 09:00 06/06/17 08:59 05/30/17 09:27 Clonidine HCl (Catapres) 0.2 mg TIDPRN PRN ORAL SBP > 160 05/29/17 16:30 06/28/17 16:29 05/29/17 16:28 Dextrose (Dextrose 50%) STAT PRN IV Hypoglycemia 05/29/17 15:00 06/28/17 14:59 Hydromorphone HCl (Dilaudid) 1 mg Q3H PRN IVP SEVERE PAIN 7-10 05/29/17 15:00 06/05/17 14:59 Insulin Aspart (NovoLOG) BEFORE MEALS AND HS SUBQ 05/29/17 16:30 06/28/17 16:29 05/30/17 11:52 Lorazepam (Ativan 2mg/ml 1ml) 0.5 mg Q4H PRN IV For Anxiety 05/29/17 14:00 06/05/17 13:59 Minoxidil (Loniten) 2.5 mg Q12HR ORAL 05/29/17 17:00 06/28/17 16:59 05/29/17 17:32 Morphine Sulfate 1 mg 1 mg Q4H PRN IVP For Pain Scale 4-6 05/29/17 16:15 06/05/17 13:44 Ondansetron HCl (Zofran) 4 mg Q6H PRN IVP Nausea & Vomiting 05/29/17 14:00 06/28/17 13:59 Polyethylene Glycol (Miralax) 17 gm HSPRN PRN ORAL Constipation 05/29/17 21:00 06/28/17 20:59 Sevelamer Carbonate (Renvela) 800 mg THREE TIMES A DAY ORAL 05/29/17 18:00 06/28/17 17:59 05/30/17 09:21 Tamsulosin HCl (Flomax) 0.4 mg QHS ORAL 05/29/17 21:00 06/28/17 20:59 05/29/17 21:54 Zolpidem Tartrate (Ambien) 5 mg HSPRN PRN ORAL Insomnia 05/29/17 21:00 06/28/17 20:59 Christin Riley M.D. May 30, 2017 15:04
--- NOTE | 2017-05-30 15:12 | Nephrology Progress Note ---
Assessment/Plan Assessment 1. End-stage renal disease. 2. Anemia of chronic kidney disease. 3. Renal osteodystrophy. 4. Hypertension. 5. Hematuria. 6. History of kidney stone. Plan plan to continue dialysis ct of abdomen monitoring phos urology fallow up Subjective Constitutional: Reports: no symptoms HEENT: Reports: no symptoms Genitourinary: Reports: no symptoms Neurologic/Psychiatric: Reports: no symptoms Subjective alert and awake still has hematuria on hemodialysis Objective Objective Last 24 Hour Vital Signs Date Time Temp Pulse Resp B/P Pulse Ox O2 Delivery O2 Flow Rate FiO2 05/30/17 12:00 99.9 77 20 138/58 97 Room Air 05/30/17 08:00 98.2 74 20 131/67 97 Room Air 05/30/17 03:48 98.1 71 20 119/60 95 Room Air 05/30/17 03:47 70 05/30/17 00:00 86 05/29/17 23:59 145/88 05/29/17 23:51 98.4 75 21 145/88 97 Room Air 05/29/17 21:54 86 177/87 05/29/17 19:48 98.7 86 20 177/87 99 Room Air 05/29/17 19:03 83 05/29/17 17:32 175/79 05/29/17 16:28 189/95 05/29/17 16:00 87 05/29/17 15:26 98.1 90 20 189/95 96 Room Air 05/29/17 15:14 98.8 79 19 161/71 100 Room Air Intake and Output 05/29/17 05/30/17 19:00 07:00 Intake Total 1055 ml Output Total 0 ml 700 ml Balance 1055 ml -700 ml Intake IV Total 1055 ml Output Urine Total 0 ml 700 ml # Bowel Movements 1 Laboratory Tests 05/29/17 16:10: Calcium (Send out) [Pending], Phosphorus Level 4.0, Parathyroid Hormone (Intact ) [Pending] 05/30/17 07:00: White Blood Count 7.6, Red Blood Count 3.12L, Hemoglobin 10.5L, Hematocrit 31.2L , Mean Corpuscular Volume 100H, Mean Corpuscular Hemoglobin 33.5H, Mean Corpuscular Hemoglobin Concent 33.6, Red Cell Distribution Width 13.0, Platelet Count 169, Mean Platelet Volume 6.8, Neutrophils (%) (Auto) 78.8H, Lymphocytes ( %) (Auto) 12.0L, Monocytes (%) (Auto) 6.3, Eosinophils (%) (Auto) 2.3, Basophils (%) (Auto) 0.6, Sodium Level 132L, Potassium Level 4.7, Chloride Level 95L, Carbon Dioxide Level 26, Anion Gap 11, Blood Urea Nitrogen 51H, Creatinine 6.1H, Estimat Glomerular Filtration Rate , Glucose Level 195H, Calcium Level 9.2, Total Bilirubin 0.5, Aspartate Amino Transf (AST/SGOT) 11, Alanine Aminotransferase (ALT/SGPT) 7, Alkaline Phosphatase 63, Total Protein 7.0, Albumin 3.3L, Globulin 3.7, Albumin/Globulin Ratio 0.8L, Triglycerides Level 193H, Cholesterol Level 138, LDL Cholesterol 77, HDL Cholesterol 22, Cholesterol/HDL Ratio 6.3H Height (Feet): 5 Height (Inches): 10.00 Weight (Pounds): 227 Objective HEAD AND NECK: No JVP. No LAD. No thyromegaly. Extraocular movements intact. Pupils are reactive to light and accommodation. LUNGS: Clear to auscultation. CARDIAC: Regular rate and rhythm. S1 and S2. No murmur. No rub. ABDOMEN: Soft, nontender, and nondistended. EXTREMITIES: Bilateral [id number] amputation. No clubbing. No cyanosis. The patient has a Houser catheter draining some bloody urine. BRITTON EPPS May 30, 2017 15:12
[2017-05-30 16:00] VITALS: BP 178/73
[2017-05-30] MEDS ORDERED: NS 275ml ONE (16:26)
[2017-05-30] MEDS ORDERED: Tubing IV Secondary IV ONE (16:26)
--- NOTE | 2017-05-30 19:15 | Consultation ---
DATE OF CONSULTATION: INFECTIOUS DISEASE CONSULTATION CONSULTING PHYSICIAN: Christin Riley M.D. REQUESTING PHYSICIAN: Varun Cee D.O. REASON FOR CONSULTATION: Urinary tract infection and dysuria. Recommendation for antibiotics treatment. HISTORY OF PRESENT ILLNESS: The patient is an 82-year-old male with past medical history of diabetes, hypertension, and chronic renal disease, end-stage, on hemodialysis, presented to the emergency room with a chief complaint of hematuria and dysuria, which started Tuesday. The patient usually make a little amount of urine every day. Tuesday, he noticed fresh blood in his urine, which was associated with dysuria and pain in the urethra, 5/10, throbbing, and nonradiating pain with some flank pain. He denies any fever or chills. No nausea or vomiting. No chest pain or shortness of breath. No other aggravating factor. In the emergency room, the patient had urinalysis that showed evidence of urinary tract infection. So, he was admitted to the hospital and I was consulted by the primary provider for antibiotics treatment and further management. PAST MEDICAL HISTORY: Significant for diabetes, hypertension, and end-stage renal disease, on hemodialysis. PAST SURGICAL HISTORY: Negative. MEDICATIONS: He received ceftriaxone in the emergency room. For the rest of his medications, please refer to [facility]. ALLERGIES: He has no known drug allergy. SOCIAL HISTORY: The patient lives at home with family. Denied using any drugs, tobacco, or alcohol. FAMILY HISTORY: Not contributory. REVIEW OF SYSTEMS: A 12-point of system reviewed were all negative apart from the one I mentioned above in my History and Physical. PHYSICAL EXAMINATION: VITAL SIGNS: Temperature 99.9 degrees, pulse 77, respirations 20, blood pressure 138/58, and saturation 97% on room air. GENERAL: An elderly male, up in bed, awake, alert, and oriented x3, not in distress. HEENT: Normocephalic and atraumatic. Pupils reactive to light. Moist oral mucosa. No exudate. NECK: Supple. No lymphadenopathy. CARDIOVASCULAR: Regular rate and rhythm. No murmur. LUNGS: Diminished breathing sound on the left lower lobe with crackles. Normal breathing sound on the right side. No wheezing or rhonchi. ABDOMEN: Soft, nontender, and nondistended. Positive bowel sounds. No hepatosplenomegaly. No ascites. EXTREMITIES: No edema or cyanosis. GENITOURINARY: He had a Houser in with bloody urine in it. LABORATORY DATA: Labs showed white count of 7.6, hemoglobin of 10.5, and platelet count of 169,000. BUN of 51 and creatinine of 6.1. Urinalysis showed +2 leukocyte esterase, WBC 10 to 15, and few bacteria. MICROBIOLOGY: Urine culture so far pending. IMAGING: Chest x-ray on admission showed large left pleural effusion versus chronic thickening similar to prior study in February 2016. Venous Doppler in the right leg revealed acute thrombus in the right popliteal vein. ASSESSMENT AND RECOMMENDATION: 1. Urinary tract infection complicated with hematuria, rule out kidney stone. We will send urine culture. We will start cefepime empiric treatment pending culture results. We will order ultrasound of his kidney to rule out obstructive lesion or stone. 2. Dysuria, rule out nephrolithiasis versus mass. Suspect urinary tract infection. We will start cefepime pending culture results. 3. Diabetes mellitus. Recommend tight glycemic control to keep blood glucose between 80 to 120. 4. End-stage renal disease, on hemodialysis. Renal is following. 5. Acute thrombosis of the right popliteal vein. Recommend anticoagulation and inferior vena cava filter. If he continues to have hematuria with the anticoagulation, recommend Oncology consult. Christin Riley M.D. DR: STEPHANIE JOB#: [id number] CC:
[2017-05-30 19:36] VITALS: BP 101/56
--- NOTE | 2017-05-30 19:43 | Consultation ---
History of Present Illness General Chief Complaint: Male Urogenital Problems Referring physician: Dr. Cee Reason for Consultation: Pleural effusion Present Illness HPI 82-year-old male with past medical history significant for history of BPH; history of TURP; history of bilateral lower extremity amputation; hypertension and diabetes; history of PermCath and fistula placement, currently receiving dialysis catheter through the left upper extremity; vertebral osteomyelitis; and history of chronic hematuria in the past with a kidney stone. he presented to [facility] complaining of hematuria. the pt c/o anxiety and insomnia Allergies: Coded Allergies: No Known Allergies (Unverified , 08/12/14) Medication History Scheduled Amlodipine Besylate* (Amlodipine Besylate*), 10 MG ORAL DAILY, (Reported) Benazepril Hcl* (Benazepril Hcl*), 25 MG ORAL DAILY, (Reported) Bisacodyl* (Dulcolax*), 10 MG ORAL BID, (Reported) Carvedilol* (Carvedilol*), 625 PO BID, (Reported) Clonidine Hcl* (Catapres*), 0.2 MG ORAL Q12HR, (Reported) Docusate Sodium* (Docusate Sodium*), 100 MG ORAL TWICE A DAY, (Reported) Famotidine (Famotidine), 20 PO BID, (Reported) Finasteride* (Proscar*), 5 MG ORAL DAILY, (Reported) Gentamicin In Nacl, Iso-Osm (Gentamicin 80 Mg/Ns 50 Ml Pb), 80 MG IV EVERY OTHER DAY Hydralazine HCl (Hydralazine HCl), 100 PO TID, (Reported) Hydralazine Hcl* (Hydralazine Hcl*), 100 MG ORAL EVERY 8 HOURS, (Reported) Hydromorphone HCl (Hydromorphone HCl), 1 MG IVP Q3HR, (Reported) Insulin Aspart (Novolog Flexpen), 6 UNITS SQ AC, (Reported) Insulin Aspart* (Novolog*), 0 SUBQ AC+HS, (Reported) Insulin Glargine (Lantus), 20 UNIT ACBREAKFAST, (Reported) Levofloxacin (Levofloxacin*), 250 MG ORAL DAILY, (Reported) Metoprolol Tartrate* (Metoprolol Tartrate*), 50 MG ORAL EVERY 12 HOURS, ( Reported) Na Phos,M-B/Na Phos,Di-Ba* (Fleet Enema*), 133 ML RECTAL DAILY, (Reported) Nateglinide (Nateglinide), 120 MG PO DAILY, (Reported) Nateglinide* (Starlix*), 60 MG ORAL THREE TIMES A DAY, (Reported) Sevelamer Carbonate* (Renvela*), 800 MG ORAL THREE TIMES A DAY, (Reported) Sodium Citrate (Sod Citrate-Citric Acid Soln), 30 ML PO TID, (Reported) Tamsulosin HCl (Flomax), 0.4 MG ORAL QHS, (Reported) Vancomycin Hcl/D5w (Vancomycin-D5w 1 G/250 Ml), 1 GM IVPB EVERY OTHER DAY Vitamin B Cmplx/Vit C/Folic AC (Nephro-Pj Tablet), 1 TAB ORAL DAILY, (Reported ) Warfarin Sod* (Warfarin Sod*), 0.5 PO DAILY, (Reported) Zinc Sulfate (Zinc Sulfate*), 220 MG ORAL DAILY, (Reported) Scheduled PRN Acetaminophen* (Acetaminophen*), 650 MG ORAL Q4HR PRN for Mild Pain/Temp > 100.5 , (Reported) Acetaminophen/Hydrocodone ([place] 7.5-325 Tablet), 1 TAB ORAL Q4HR PRN for Moderate Pain (Pain Scale 4-6), (Reported) Miscellaneous Medications Allopurinol* (Allopurinol*), 100 PO, (Reported) Aspirin Ec* (Aspirin Ec*), 81 PO, (Reported) Ceftriaxone Sodium (Ceftriaxone), 1 GM IV, (Reported) Furosemide* (Lasix*), 40 PO, (Reported) Patient History Healthcare decision maker Resuscitation status Advanced Directive on File Review of Systems Psychiatric: Reports: anxiety, prior hx Physical Exam General Appearance: WD/WN, no apparent distress, alert Neurologic: alert, oriented x 3, responsive, depressed affect Last 24 Hour Vital Signs Date Time Temp Pulse Resp B/P Pulse Ox O2 Delivery O2 Flow Rate FiO2 05/30/17 17:47 Room Air 05/30/17 16:00 100.6 81 18 178/73 97 Room Air 05/30/17 13:00 Room Air 05/30/17 12:00 99.9 77 20 138/58 97 Room Air 05/30/17 08:00 98.2 74 20 131/67 97 Room Air 05/30/17 03:48 98.1 71 20 119/60 95 Room Air 05/30/17 03:47 70 05/30/17 00:00 86 05/29/17 23:59 145/88 05/29/17 23:51 98.4 75 21 145/88 97 Room Air 05/29/17 21:54 86 177/87 05/29/17 19:48 98.7 86 20 177/87 99 Room Air Intake and Output 05/29/17 05/30/17 19:00 07:00 Intake Total 1055 ml Output Total 0 ml 700 ml Balance 1055 ml -700 ml Intake IV Total 1055 ml Output Urine Total 0 ml 700 ml # Bowel Movements 1 Laboratory Tests Test 05/30/17 07:00 White Blood Count 7.6 K/UL (4.8-10.8) Red Blood Count 3.12 M/UL (4.70-6.10) L Hemoglobin 10.5 G/DL (14.2-18.0) L Hematocrit 31.2 % (42.0-52.0) L Mean Corpuscular Volume 100 FL (80-99) H Mean Corpuscular Hemoglobin 33.5 PG (27.0-31.0) H Mean Corpuscular Hemoglobin Concent 33.6 G/DL (32.0-36.0) Red Cell Distribution Width 13.0 % (11.6-14.8) Platelet Count 169 K/UL (150-450) Mean Platelet Volume 6.8 FL (6.5-10.1) Neutrophils (%) (Auto) 78.8 % (45.0-75.0) H Lymphocytes (%) (Auto) 12.0 % (20.0-45.0) L Monocytes (%) (Auto) 6.3 % (1.0-10.0) Eosinophils (%) (Auto) 2.3 % (0.0-3.0) Basophils (%) (Auto) 0.6 % (0.0-2.0) Sodium Level 132 mEQ/L (135-145) L Potassium Level 4.7 mEQ/L (3.4-4.9) Chloride Level 95 mEQ/L (98-107) L Carbon Dioxide Level 26 mEQ/L (20-30) Anion Gap 11 (5-15) Blood Urea Nitrogen 51 mg/dL (7-23) H Creatinine 6.1 mg/dL (0.7-1.2) H Estimat Glomerular Filtration Rate mL/min (>60) Glucose Level 195 mg/dL (74-106) H Calcium Level 9.2 mg/dL (8.6-10.2) Total Bilirubin 0.5 mg/dL (0.0-1.2) Aspartate Amino Transf (AST/SGOT) 11 U/L (5-40) Alanine Aminotransferase (ALT/SGPT) 7 U/L (3-41) Alkaline Phosphatase 63 U/L (40-129) Total Protein 7.0 g/dL (6.6-8.7) Albumin 3.3 g/dL (3.5-5.2) L Globulin 3.7 g/dL Albumin/Globulin Ratio 0.8 (1.0-2.7) L Triglycerides Level 193 mg/dL (< 150) H Cholesterol Level 138 mg/dL (< 200) LDL Cholesterol 77 mg/dL (60-99) HDL Cholesterol 22 mg/dL (> 60) Cholesterol/HDL Ratio 6.3 (3.3-4.4) H Height (Feet): 5 Height (Inches): 10.00 Weight (Pounds): 227 Medications Current Medications Medications (Trade) Dose Ordered Sig/Amanda Route PRN Reason Start Time Stop Time Status Last Admin Dose Admin Acetaminophen (Tylenol) 650 mg Q4H PRN ORAL fever>100.5 05/29/17 14:00 06/28/17 13:59 Al Hydroxide/Mg Hydroxide (Mylanta II) 30 ml Q6H PRN ORAL dyspepsia 05/29/17 14:00 06/28/17 13:59 Allopurinol (Zyloprim) 100 mg DAILY ORAL 05/30/17 09:00 06/29/17 08:59 05/30/17 09:21 Amlodipine Besylate (Norvasc) 10 mg DAILY ORAL 05/30/17 09:00 06/29/17 08:59 Benazepril HCl (Lotensin) 25 mg DAILY ORAL 05/30/17 09:00 06/29/17 08:59 Carvedilol (Coreg) 6.25 mg Q12HR ORAL 05/29/17 21:00 06/28/17 20:59 05/29/17 21:54 Cefepime HCl/ Dextrose (Maxipime/D5W) 55 ml @ 110 mls/hr Q24H IVPB 05/30/17 09:00 06/06/17 08:59 05/30/17 09:27 Clonidine HCl (Catapres) 0.2 mg TIDPRN PRN ORAL SBP > 160 05/29/17 16:30 06/28/17 16:29 05/29/17 16:28 Dextrose (Dextrose 50%) STAT PRN IV Hypoglycemia 05/29/17 15:00 06/28/17 14:59 Hydromorphone HCl (Dilaudid) 1 mg Q3H PRN IVP SEVERE PAIN 7-10 05/29/17 15:00 06/05/17 14:59 Insulin Aspart (NovoLOG) BEFORE MEALS AND HS SUBQ 05/29/17 16:30 06/28/17 16:29 05/30/17 18:10 Lorazepam (Ativan 2mg/ml 1ml) 0.5 mg Q4H PRN IV For Anxiety 05/29/17 14:00 06/05/17 13:59 Minoxidil (Loniten) 2.5 mg Q12HR ORAL 05/29/17 17:00 06/28/17 16:59 05/29/17 17:32 Morphine Sulfate 1 mg 1 mg Q4H PRN IVP For Pain Scale 4-6 05/29/17 16:15 06/05/17 13:44 Ondansetron HCl (Zofran) 4 mg Q6H PRN IVP Nausea & Vomiting 05/29/17 14:00 06/28/17 13:59 Polyethylene Glycol (Miralax) 17 gm HSPRN PRN ORAL Constipation 05/29/17 21:00 06/28/17 20:59 Sevelamer Carbonate (Renvela) 800 mg THREE TIMES A DAY ORAL 05/29/17 18:00 06/28/17 17:59 05/30/17 18:07 Tamsulosin HCl (Flomax) 0.4 mg QHS ORAL 05/29/17 21:00 06/28/17 20:59 05/29/17 21:54 Zolpidem Tartrate (Ambien) 5 mg HSPRN PRN ORAL Insomnia 05/29/17 21:00 06/28/17 20:59 Assessment/Plan Status: stable Assessment/Plan anxiety d/o -remeron prn -atChilango Dillard M.D. May 30, 2017 19:43
[2017-05-30 20:00] VITALS: BP 123/84
[2017-05-30] MEDS: Tamsulosin 0.4mg cap ORAL SCH (21:02)
--- NOTE | 2017-05-30 21:30 | History and Physical Report ---
DATE OF ADMISSION: 05/29/2017 TIME: 2 p.m. CONSULTANTS: 1. Dr. Sky. 2. Estelita Henriquez M.D. 3. Franklyn Mckeon M.D. 4. Jaida Garzon M.D. 5. Urologist. CHIEF COMPLAINT: Hematuria, renal failure on dialysis. BRIEF HISTORY: The patient is an 82-year-old male who lives at home, comes to my office monthly, presented to [place] [facility] last night with history of one time copious hematuria, shortly after it cleared the patient came to [place], diagnosed with above and admitted to medical floor for further treatment. Currently, calm in bed, getting dialysis, and no complaint. PAST MEDICAL HISTORY: Renal failure on dialysis, diabetes, hypertension, anemia, and kidney stone. PAST SURGICAL HISTORY: Bilateral AKA. MEDICATIONS: Zyloprim, Norvasc, Lotensin, cefepime, Coreg, Flomax, Renvela, Ambien, NovoLog, and Catapres. ALLERGIES: Denies. SOCIAL HISTORY: No smoking. No alcohol. No intravenous drug abuse. FAMILY HISTORY: Noncontributory. REVIEW OF SYSTEMS: No chest pain. No short of breath. No nausea, vomiting, or diarrhea. PHYSICAL EXAMINATION: GENERAL: Calm in bed, oriented x3, no acute distress. VITAL SIGNS: Temperature is 99 degrees, pulse 77, respirations 20, and blood pressure 138/58. CARDIOVASCULAR: No murmur. LUNGS: Distant and clear. ABDOMEN: Bowel sound positive. Soft, nontender, and nondistended. EXTREMITIES: No cyanosis, clubbing, or edema. Bilateral AKA noted. NEUROLOGIC: The patient moves all extremities, slightly weak. LABORATORY AND DIAGNOSTIC DATA: Hemoglobin 10.5, otherwise CBC is normal. BMP shows sodium 132, chloride 95, BUN and creatinine 51 and 6.1 and glucose 195. Urinalysis show 5+ occult blood and 2+ leukocyte esterase. ASSESSMENT: 1. Hematuria. 2. Urinary tract infection. 3. Renal failure on dialysis. 4. Diabetes. 5. Anemia. 6. Hypertension. 7. Kidney stone history. PLAN: Continue previous medications. OT/PT. Dietary evaluation. CBC and BMP in the morning. Antibiotics per Infectious Disease. Blood pressure and blood sugar control. . Dietary followup. Urology and Dr. Sky, Dr. Henriquez, Dr. Mckeon and Dr. Garzon to consult. We will continue to follow the patient medically. Varun Cee D.O. DR: JOS JOB#: [id number] CC:
--- NOTE | 2017-05-30 21:54 | Cardiology Progress Note ---
Assessment/Plan Assessment/Plan 1. Accelerated hypertension. controlled well with combination of minoxidil, carvedilol and amlodipine. 2. End-stage renal disease. 3. Hematuria/dysuria, concerned about urinary tract infection. 4. History of DM,consider care home aspirin and atorvastatin. 5. PAD, s/p bilateral BKA. Subjective Subjective Sinus rhythm at 90. Objective Last 24 Hour Vital Signs Date Time Temp Pulse Resp B/P Pulse Ox O2 Delivery O2 Flow Rate FiO2 05/30/17 21:07 123/84 05/30/17 21:07 97 123/84 05/30/17 21:00 86 05/30/17 20:00 98.1 97 20 123/84 95 Room Air 05/30/17 19:37 99.5 05/30/17 19:36 101/56 05/30/17 17:47 Room Air 05/30/17 16:00 100.6 81 18 178/73 97 Room Air 05/30/17 13:00 Room Air 05/30/17 12:00 99.9 77 20 138/58 97 Room Air 05/30/17 08:00 98.2 74 20 131/67 97 Room Air 05/30/17 03:48 98.1 71 20 119/60 95 Room Air 05/30/17 03:47 70 05/30/17 00:00 86 05/29/17 23:59 145/88 05/29/17 23:51 98.4 75 21 145/88 97 Room Air 05/29/17 21:54 86 177/87 Intake and Output 05/29/17 05/30/17 19:00 07:00 Intake Total 1055 ml Output Total 0 ml 700 ml Balance 1055 ml -700 ml Intake IV Total 1055 ml Output Urine Total 0 ml 700 ml # Bowel Movements 1 2D Echo: LVEF 65%, mild LVH, Grade I LVDD Laboratory Tests Test 05/30/17 07:00 White Blood Count 7.6 K/UL (4.8-10.8) Red Blood Count 3.12 M/UL (4.70-6.10) L Hemoglobin 10.5 G/DL (14.2-18.0) L Hematocrit 31.2 % (42.0-52.0) L Mean Corpuscular Volume 100 FL (80-99) H Mean Corpuscular Hemoglobin 33.5 PG (27.0-31.0) H Mean Corpuscular Hemoglobin Concent 33.6 G/DL (32.0-36.0) Red Cell Distribution Width 13.0 % (11.6-14.8) Platelet Count 169 K/UL (150-450) Mean Platelet Volume 6.8 FL (6.5-10.1) Neutrophils (%) (Auto) 78.8 % (45.0-75.0) H Lymphocytes (%) (Auto) 12.0 % (20.0-45.0) L Monocytes (%) (Auto) 6.3 % (1.0-10.0) Eosinophils (%) (Auto) 2.3 % (0.0-3.0) Basophils (%) (Auto) 0.6 % (0.0-2.0) Sodium Level 132 mEQ/L (135-145) L Potassium Level 4.7 mEQ/L (3.4-4.9) Chloride Level 95 mEQ/L (98-107) L Carbon Dioxide Level 26 mEQ/L (20-30) Anion Gap 11 (5-15) Blood Urea Nitrogen 51 mg/dL (7-23) H Creatinine 6.1 mg/dL (0.7-1.2) H Estimat Glomerular Filtration Rate mL/min (>60) Glucose Level 195 mg/dL (74-106) H Calcium Level 9.2 mg/dL (8.6-10.2) Total Bilirubin 0.5 mg/dL (0.0-1.2) Aspartate Amino Transf (AST/SGOT) 11 U/L (5-40) Alanine Aminotransferase (ALT/SGPT) 7 U/L (3-41) Alkaline Phosphatase 63 U/L (40-129) Total Protein 7.0 g/dL (6.6-8.7) Albumin 3.3 g/dL (3.5-5.2) L Globulin 3.7 g/dL Albumin/Globulin Ratio 0.8 (1.0-2.7) L Triglycerides Level 193 mg/dL (< 150) H Cholesterol Level 138 mg/dL (< 200) LDL Cholesterol 77 mg/dL (60-99) HDL Cholesterol 22 mg/dL (> 60) Cholesterol/HDL Ratio 6.3 (3.3-4.4) H Microbiology Date/Time Source Procedure Growth Status 05/29/17 13:25 Urine,Clean Catch Urine Culture - Preliminary Resulted Objective HEENT: Atraumatic and normocephalic. Pupils are equal, round, and reactive to light and accommodation. Extraocular muscles intact. NECK: JVP less than 5 cm. No carotid bruit. Carotid upstrokes 2+ bilaterally. LUNGS: Clear to auscultation bilaterally. CARDIOVASCULAR: Normal S1 and S2. Regular rate and rhythm. No murmurs, gallops, or rubs. PMI is at fourth intercostal space at the midclavicular line. ABDOMEN: Soft, nontender, and nondistended. No hepatosplenomegaly. Positive bowel sounds. EXTREMITIES: No evidence of edema, clubbing, or cyanosis. ARIA GRAVES May 30, 2017 21:54
[2017-05-31] VITALS (7 sets, daily range): BP systolic 96–128; BP diastolic 40–64
[2017-05-31] MEDS: NovoLOG Insulin Flexpen SUBQ SCH ×4 (06:40→20:26)
[2017-05-31] MEDS: Carvedilol 6.25mg Tab ORAL SCH ×2 (08:48→20:27)
[2017-05-31] MEDS: Renvela 800mg Pkt ORAL SCH ×3 (08:48→18:08)
[2017-05-31] MEDS: Allopurinol 100mg Tab ORAL SCH (08:55)
[2017-05-31 09:00] LABS: EOSINOPHILS % (AUTO) 3.2 % (0.0-3.0); LYMPHOCYTES % (AUTO) 20.4 % (20.0-45.0); MEAN CORPUSCULAR HEMOGLOBIN 34.2 PG (27.0-31.0); MEAN CORPUSCULAR HGB CONC 34.3 G/DL (32.0-36.0); MEAN CORPUSCULAR VOLUME 100 FL (80-99); MEAN PLATELET VOLUME 7.5 FL (6.5-10.1); NEUTROPHILS % (AUTO) 66.4 % (45.0-75.0); PLATELET COUNT 165 K/UL (150-450); RED BLOOD COUNT 3.43 M/UL (4.70-6.10); RED CELL DISTRIBUTION WIDTH 13.2 % (11.6-14.8); WHITE BLOOD COUNT 5.7 K/UL (4.8-10.8)
[2017-05-31 09:12] LABS: ANION GAP 11 (5-15); CALCIUM 8.9 mg/dL (8.6-10.2); CARBON DIOXIDE 28 mEQ/L (20-30); CHLORIDE 95 mEQ/L (98-107); CREATININE 5.6 mg/dL (0.7-1.2); HEMOLYSIS 3; POTASSIUM 4.7 mEQ/L (3.4-4.9); SODIUM 134 mEQ/L (135-145)
[2017-05-31 09:13] LABS: PROTHROMBIN TIME 10.7 SEC (9.30-11.50)
[2017-05-31] MEDS ORDERED: cloNIDine 0.2mg Tab ORAL PRN (09:30)
[2017-05-31] MEDS ORDERED: Morphine Sulfate 2mg/ml Inj IVP PRN (09:30)
[2017-05-31] MEDS ORDERED: HYDROmorphone 1mg/ml Carpuject IVP PRN (09:30)
[2017-05-31] MEDS ORDERED: Mylanta II UD 30ml ORAL PRN (09:30)
[2017-05-31] MEDS: Minoxidil 2.5mg tab ORAL SCH ×2 (10:00→20:27)
[2017-05-31] MEDS ORDERED: LORazepam Inj 2mg/ml 1ml IV PRN (10:00)
[2017-05-31] MEDS: Benazepril 10mg tab ORAL SCH (10:00)
[2017-05-31 10:03] LABS: ERYTHROCYTE SEDIMENTATION RATE 53 MM/HR (0-30)
[2017-05-31 10:13] LABS: BAND NEUTROPHILS % (MANUAL) 0 % (0-8); BASOPHILS % (MANUAL) 0 % (0-2); EOSINOPHILS % (MANUAL) 2 % (0-3); LYMPHOCYTES % (MANUAL) 22 % (20-45); NEUTROPHILS % (MANUAL) 73 % (45-75); PLATELET ESTIMATE ADEQUATE; PLATELET MORPHOLOGY NORMAL; TOTAL CELLS COUNTED 100
[2017-05-31 11:08] LABS: PATH BLOOD SMEAR/OMC SENT TO PATHOLOGIST; RETICULOCYTE COUNT 0.7 % (0.0-2.0)
[2017-05-31] MEDS: Cefepime HCl 1 GM in D5W 55 ML IVPB SCH (11:18)
--- NOTE | 2017-05-31 12:10 | Diagnostic Imaging Report ---
Indication: Hematuria, abnormal renal function tests Technique: Grayscale and duplex images of the kidneys, retroperitoneum, and bladder were obtained. Comparison:10/21/2014 Findings: Right kidney measures 11.5 cm in length. Left kidney measures 9.6 cm in length. Both kidneys demonstrate increased echogenicity. No hydronephrosis. Left kidney demonstrates a 2.1 cm upper pole cyst. The right kidney demonstrates an 11 mm interpolar region cyst. The 2 upper pole cysts on the right described on prior ultrasound are not clearly evident on this exam.. Normal inferior vena cava. Bladder is trabeculated what appears to the shaft of Houser catheter is located apparently in the urethra, but the balloon is not visualized within the bladder lumen. There is an elongated filling defect projecting into the bladder lumen from the posterior wall.. The prostate is markedly enlarged a lobulated, indents the bladder floor. The calculated prostate volume is 153 mL. This is increased from the prior value of 127 mL Impression: Increased prostatomegaly. Probably on the basis of increasing benign prostatic hypertrophy, prostate neoplasm as etiology not excludable Possible malposition of Houser catheter. Consider CT to confirm Trabeculated bladder, likely on the basis of chronic bladder obstruction Possible posterior bladder wall mass versus prominent trabeculation Bilateral renal cysts Negative for hydronephrosis.
[2017-05-31 12:13] LABS: PTH INTACT 302 pg/mL (15-65)
--- NOTE | 2017-05-31 14:08 | Pulmonology Progress Note ---
Assessment/Plan Problems: (1) Pleural effusion, left (2) Hematuria (3) Anemia in CKD (chronic kidney disease) (4) DM (diabetes mellitus) (5) ESRD (end stage renal disease) on dialysis (6) History of below knee amputation Assessment/Plan titrate fio2 to sat of 92 frequent flushing of g[place]bert check all cutures continue current meds all notes reviewed dvt prophylaxis Subjective ROS Limited/Unobtainable: No Interval Events: still blood in g[place] Allergies: Coded Allergies: No Known Allergies (Unverified , 08/12/14) Objective Last 24 Hour Vital Signs Date Time Temp Pulse Resp B/P Pulse Ox O2 Delivery O2 Flow Rate FiO2 05/31/17 13:47 80 128/58 05/31/17 12:00 98.8 83 18 96/40 Room Air 05/31/17 10:00 99/40 05/31/17 10:00 99/40 05/31/17 08:56 83 111/57 05/31/17 08:48 83 111/57 05/31/17 08:00 89 05/31/17 07:55 99.5 83 20 111/57 97 Room Air 05/31/17 04:00 90 05/31/17 04:00 98.1 93 18 101/51 98 Room Air 05/31/17 00:00 85 05/31/17 00:00 99.5 91 20 112/64 98 Room Air 05/30/17 21:07 123/84 05/30/17 21:07 97 123/84 05/30/17 21:00 86 05/30/17 20:00 98.1 97 20 123/84 95 Room Air 05/30/17 19:37 99.5 05/30/17 19:36 101/56 05/30/17 17:47 Room Air 05/30/17 16:00 100.6 81 18 178/73 97 Room Air Intake and Output 05/30/17 05/31/17 19:00 07:00 Output Total 2350 ml 400 ml Balance -2350 ml -400 ml Output Urine Total 250 ml 400 ml Hemodialysis UF 2100 ml General Appearance: WD/WN HEENT: normocephalic, atraumatic Respiratory/Chest: chest wall non-tender, lungs clear Cardiovascular: normal peripheral pulses, normal rate, no JVD Abdomen: normal bowel sounds, soft, non tender Genitourinary: normal external genitalia Extremities: no cyanosis Neurologic/Psychiatric: 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 Complete 05/29/17 13:25 Urine,Clean Catch Urine Culture - Preliminary Strep Species, Alpha Hemolytic Resulted 05/29/17 14:55 Rectum VRE Culture - Final NO VANCOMYCIN RESISTANT ENTEROCOCCUS ... Complete Laboratory Tests 05/31/17 08:40: White Blood Count 5.7, Red Blood Count 3.43L, Hemoglobin 11.7L, Hematocrit 34.3L , Mean Corpuscular Volume 100H, Mean Corpuscular Hemoglobin 34.2H, Mean Corpuscular Hemoglobin Concent 34.3, Red Cell Distribution Width 13.2, Platelet Count 165, Mean Platelet Volume 7.5, Neutrophils (%) (Auto) 66.4, Lymphocytes (% ) (Auto) 20.4, Monocytes (%) (Auto) 9.0, Eosinophils (%) (Auto) 3.2H, Basophils (%) (Auto) 1.0, Differential Total Cells Counted 100, Neutrophils % (Manual) 73 , Lymphocytes % (Manual) 22, Monocytes % (Manual) 3, Eosinophils % (Manual) 2, Basophils % (Manual) 0, Band Neutrophils 0, Platelet Estimate Adequate, Platelet Morphology Normal, Erythrocyte Sedimentation Rate 53H, Reticulocyte Count 0.7, Prothrombin Time 10.7, Prothromb Time International Ratio 1.0, Activated Partial Thromboplast Time 31, Sodium Level 134L, Potassium Level 4.7, Chloride Level 95L, Carbon Dioxide Level 28, Anion Gap 11, Blood Urea Nitrogen 40H, Creatinine 5.6H, Estimat Glomerular Filtration Rate , Glucose Level 230H, Calcium Level 8.9, Iron Level 38L, Total Iron Binding Capacity 147L, Percent Iron Saturation 26, Unsaturated Iron Binding 109L, Lactate Dehydrogenase 251H, Carcinoembryonic Antigen 1.8, Vitamin B12 Level 225, Folate [Pending] Current Medications Medications (Trade) Dose Ordered Sig/Amanda Route PRN Reason Start Time Stop Time Status Last Admin Dose Admin Acetaminophen (Tylenol) 650 mg Q4H PRN ORAL fever>100.5 05/31/17 10:00 06/30/17 09:59 Al Hydroxide/Mg Hydroxide (Mylanta II) 30 ml Q6H PRN ORAL dyspepsia 05/31/17 09:30 06/30/17 09:29 Allopurinol (Zyloprim) 100 mg DAILY ORAL 06/01/17 09:00 07/01/17 08:59 Amlodipine Besylate (Norvasc) 10 mg DAILY ORAL 06/01/17 09:00 07/01/17 08:59 Benazepril HCl (Lotensin) 25 mg DAILY ORAL 05/31/17 10:00 06/30/17 09:59 Carvedilol (Coreg) 6.25 mg Q12HR ORAL 05/31/17 21:00 06/30/17 20:59 Cefepime HCl/ Dextrose (Maxipime/D5W) 55 ml @ 110 mls/hr Q24H IVPB 05/31/17 10:00 06/07/17 09:59 05/31/17 11:18 Clonidine HCl (Catapres) 0.2 mg TIDPRN PRN ORAL SBP > 160 05/31/17 09:30 06/30/17 09:29 Dextrose (Dextrose 50%) STAT PRN IV Hypoglycemia 05/31/17 09:30 06/30/17 09:29 Hydromorphone HCl (Dilaudid) 1 mg Q3H PRN IVP SEVERE PAIN 7-10 05/31/17 09:30 06/07/17 09:29 Insulin Aspart (NovoLOG) BEFORE MEALS AND HS SUBQ 05/31/17 11:30 06/30/17 11:29 05/31/17 12:27 Lorazepam (Ativan 2mg/ml 1ml) 0.5 mg Q4H PRN IV For Anxiety 05/31/17 10:00 06/07/17 09:59 Minoxidil (Loniten) 2.5 mg Q12HR ORAL 05/31/17 10:00 06/30/17 09:59 Mirtazapine (Remeron) 7.5 mg HSPRN PRN ORAL insomnia 05/31/17 19:45 06/30/17 19:44 Morphine Sulfate (Morphine Sulfate) 1 mg Q4H PRN IVP For Pain Scale 4-6 05/31/17 09:30 06/07/17 09:29 Ondansetron HCl (Zofran) 4 mg Q6H PRN IVP Nausea & Vomiting 05/31/17 09:30 06/30/17 09:29 Polyethylene Glycol (Miralax) 17 gm HSPRN PRN ORAL Constipation 05/31/17 21:00 06/30/17 20:59 Sevelamer Carbonate (Renvela) 800 mg THREE TIMES A DAY ORAL 05/31/17 13:00 06/30/17 12:59 05/31/17 12:25 Tamsulosin HCl (Flomax) 0.4 mg QHS ORAL 05/31/17 21:00 06/30/17 20:59 TERESO PINK May 31, 2017 14:08
--- NOTE | 2017-05-31 14:16 | General Progress Note ---
Assessment/Plan Problem List: (1) Renal failure (ARF), acute on chronic ICD Codes: N17.9 - Acute kidney failure, unspecified; N18.9 - Chronic kidney disease, unspecified SNOMED: 741694187 (2) CKD (chronic kidney disease) stage 3, GFR 30-59 ml/min ICD Codes: N18.3 - Chronic kidney disease, stage 3 (moderate) SNOMED: 176873867 (3) Hematuria ICD Codes: R31.9 - Hematuria SNOMED: 81139449 Qualifiers: Qualified Codes: R31.9 - Hematuria, unspecified (4) DM (diabetes mellitus) ICD Codes: E11.9 - DM (diabetes mellitus) SNOMED: 72467553 Status: stable, progressing, tolerating diet Assessment/Plan ot pt diet abx cbc bmp am heme eval Subjective Constitutional: Reports: weakness Allergies: Coded Allergies: No Known Allergies (Unverified , 08/12/14) All Systems: reviewed and negative except above Subjective pos hematuria Objective Last 24 Hour Vital Signs Date Time Temp Pulse Resp B/P Pulse Ox O2 Delivery O2 Flow Rate FiO2 05/31/17 13:47 80 128/58 05/31/17 12:00 98.8 83 18 96/40 Room Air 05/31/17 10:00 99/40 05/31/17 10:00 99/40 05/31/17 08:56 83 111/57 05/31/17 08:48 83 111/57 05/31/17 08:00 89 05/31/17 07:55 99.5 83 20 111/57 97 Room Air 05/31/17 04:00 90 05/31/17 04:00 98.1 93 18 101/51 98 Room Air 05/31/17 00:00 85 05/31/17 00:00 99.5 91 20 112/64 98 Room Air 05/30/17 21:07 123/84 05/30/17 21:07 97 123/84 05/30/17 21:00 86 05/30/17 20:00 98.1 97 20 123/84 95 Room Air 05/30/17 19:37 99.5 05/30/17 19:36 101/56 05/30/17 17:47 Room Air 05/30/17 16:00 100.6 81 18 178/73 97 Room Air Intake and Output 05/30/17 05/31/17 19:00 07:00 Output Total 2350 ml 400 ml Balance -2350 ml -400 ml Output Urine Total 250 ml 400 ml Hemodialysis UF 2100 ml Laboratory Tests 05/31/17 08:40: White Blood Count 5.7, Red Blood Count 3.43L, Hemoglobin 11.7L, Hematocrit 34.3L , Mean Corpuscular Volume 100H, Mean Corpuscular Hemoglobin 34.2H, Mean Corpuscular Hemoglobin Concent 34.3, Red Cell Distribution Width 13.2, Platelet Count 165, Mean Platelet Volume 7.5, Neutrophils (%) (Auto) 66.4, Lymphocytes (% ) (Auto) 20.4, Monocytes (%) (Auto) 9.0, Eosinophils (%) (Auto) 3.2H, Basophils (%) (Auto) 1.0, Differential Total Cells Counted 100, Neutrophils % (Manual) 73 , Lymphocytes % (Manual) 22, Monocytes % (Manual) 3, Eosinophils % (Manual) 2, Basophils % (Manual) 0, Band Neutrophils 0, Platelet Estimate Adequate, Platelet Morphology Normal, Erythrocyte Sedimentation Rate 53H, Reticulocyte Count 0.7, Prothrombin Time 10.7, Prothromb Time International Ratio 1.0, Activated Partial Thromboplast Time 31, Sodium Level 134L, Potassium Level 4.7, Chloride Level 95L, Carbon Dioxide Level 28, Anion Gap 11, Blood Urea Nitrogen 40H, Creatinine 5.6H, Estimat Glomerular Filtration Rate , Glucose Level 230H, Calcium Level 8.9, Iron Level 38L, Total Iron Binding Capacity 147L, Percent Iron Saturation 26, Unsaturated Iron Binding 109L, Lactate Dehydrogenase 251H, Carcinoembryonic Antigen 1.8, Vitamin B12 Level 225, Folate [Pending] Height (Feet): 5 Height (Inches): 10.00 Weight (Pounds): 227 General Appearance: lethargic EENT: normal ENT inspection Neck: normal alignment Cardiovascular: normal peripheral pulses, normal rate, regular rhythm Respiratory/Chest: chest wall non-tender, lungs clear, normal breath sounds Abdomen: normal bowel sounds, non tender, soft Extremities: normal inspection Edema: no edema noted Arm (L), no edema noted Arm (R), no edema noted Leg (L), no edema noted Leg (R), no edema noted Pedal (L), no edema noted Pedal (R), no edema noted Generalized Neurologic: responsive, motor weakness Skin: normal pigmentation, warm/dry YNES LIN May 31, 2017 14:16
--- NOTE | 2017-05-31 15:37 | General Progress Note ---
Assessment/Plan Status: stable, progressing Assessment/Plan cont remeron cont ativan Subjective Constitutional: Reports: malaise, weakness Neurologic/Psychiatric: Reports: anxiety Allergies: Coded Allergies: No Known Allergies (Unverified , 08/12/14) All Systems: reviewed and negative except above Subjective the pt less anxious. sleep adequate Objective Last 24 Hour Vital Signs Date Time Temp Pulse Resp B/P Pulse Ox O2 Delivery O2 Flow Rate FiO2 05/31/17 13:47 80 128/58 05/31/17 12:00 98.8 83 18 96/40 Room Air 05/31/17 10:00 99/40 05/31/17 10:00 99/40 05/31/17 08:56 83 111/57 05/31/17 08:48 83 111/57 05/31/17 08:00 89 05/31/17 07:55 99.5 83 20 111/57 97 Room Air 05/31/17 04:00 90 05/31/17 04:00 98.1 93 18 101/51 98 Room Air 05/31/17 00:00 85 05/31/17 00:00 99.5 91 20 112/64 98 Room Air 05/30/17 21:07 123/84 05/30/17 21:07 97 123/84 05/30/17 21:00 86 05/30/17 20:00 98.1 97 20 123/84 95 Room Air 05/30/17 19:37 99.5 05/30/17 19:36 101/56 05/30/17 17:47 Room Air 05/30/17 16:00 100.6 81 18 178/73 97 Room Air Intake and Output 05/30/17 05/31/17 19:00 07:00 Output Total 2350 ml 400 ml Balance -2350 ml -400 ml Output Urine Total 250 ml 400 ml Hemodialysis UF 2100 ml Laboratory Tests 05/31/17 08:40: White Blood Count 5.7, Red Blood Count 3.43L, Hemoglobin 11.7L, Hematocrit 34.3L , Mean Corpuscular Volume 100H, Mean Corpuscular Hemoglobin 34.2H, Mean Corpuscular Hemoglobin Concent 34.3, Red Cell Distribution Width 13.2, Platelet Count 165, Mean Platelet Volume 7.5, Neutrophils (%) (Auto) 66.4, Lymphocytes (% ) (Auto) 20.4, Monocytes (%) (Auto) 9.0, Eosinophils (%) (Auto) 3.2H, Basophils (%) (Auto) 1.0, Differential Total Cells Counted 100, Neutrophils % (Manual) 73 , Lymphocytes % (Manual) 22, Monocytes % (Manual) 3, Eosinophils % (Manual) 2, Basophils % (Manual) 0, Band Neutrophils 0, Platelet Estimate Adequate, Platelet Morphology Normal, Erythrocyte Sedimentation Rate 53H, Reticulocyte Count 0.7, Prothrombin Time 10.7, Prothromb Time International Ratio 1.0, Activated Partial Thromboplast Time 31, Sodium Level 134L, Potassium Level 4.7, Chloride Level 95L, Carbon Dioxide Level 28, Anion Gap 11, Blood Urea Nitrogen 40H, Creatinine 5.6H, Estimat Glomerular Filtration Rate , Glucose Level 230H, Calcium Level 8.9, Iron Level 38L, Total Iron Binding Capacity 147L, Percent Iron Saturation 26, Unsaturated Iron Binding 109L, Lactate Dehydrogenase 251H, Carcinoembryonic Antigen 1.8, Vitamin B12 Level 225, Folate [Pending] Height (Feet): 5 Height (Inches): 10.00 Weight (Pounds): 227 General Appearance: no apparent distress, alert Neurologic: alert, oriented x 3, responsive, depressed affect Chilango Young M.D. May 31, 2017 15:37
--- NOTE | 2017-05-31 15:54 | Infectious Diseases Prog Note ---
Assessment/Plan Problems: (1) Hematuria Assessment & Plan: with possible bladder mass, recommend urology consult for cystoscopy and biopsy . continue antibiotics (2) UTI (lower urinary tract infection) Assessment & Plan: due to strep spp, continue cefepime empirically for now pending identification and sensitivity (3) Dysuria Assessment & Plan: due to uti and enlarged prostate , on cefepime empirically pending culture results, recommend cystoscopy for further evaluation (4) DM (diabetes mellitus) Assessment & Plan: recommend tight glycemic control to keep blood glucose between 80-120 (5) ESRD (end stage renal disease) on dialysis Assessment & Plan: on HD, renal is following (6) Acute thromboembolism of right popliteal vein Assessment & Plan: recommend anticoagulation and IVF filter if continues to have hematuria , recommend hematology consult (7) Pleural effusion, left Assessment & Plan: recommend thoracentesis and fluids to be sent for culture, gram stain, fungal and AFB . and cytology Subjective Constitutional: Reports: no symptoms HEENT: Reports: no symptoms Respiratory: Reports: no symptoms Breasts: Reports: no symptoms Cardiovascular: Reports: no symptoms Gastrointestinal/Abdominal: Reports: no symptoms Genitourinary: Reports: dysuria, hematuria Neurologic: Reports: no symptoms Psychiatric: Reports: no symptoms Skin: Reports: ulcer Endocrine: Reports: no symptoms Hematologic: Reports: no symptoms Musculoskeletal: Reports: no symptoms Allergies: Coded Allergies: No Known Allergies (Unverified , 08/12/14) Objective Vital Signs Last 24 Hour Vital Signs Date Time Temp Pulse Resp B/P Pulse Ox O2 Delivery O2 Flow Rate FiO2 05/31/17 15:48 99.5 83 22 99/48 95 Room Air 05/31/17 13:47 80 128/58 05/31/17 12:00 98.8 83 18 96/40 Room Air 05/31/17 10:00 99/40 05/31/17 10:00 99/40 05/31/17 08:56 83 111/57 05/31/17 08:48 83 111/57 05/31/17 08:00 89 05/31/17 07:55 99.5 83 20 111/57 97 Room Air 05/31/17 04:00 90 05/31/17 04:00 98.1 93 18 101/51 98 Room Air 05/31/17 00:00 85 05/31/17 00:00 99.5 91 20 112/64 98 Room Air 05/30/17 21:07 123/84 05/30/17 21:07 97 123/84 05/30/17 21:00 86 05/30/17 20:00 98.1 97 20 123/84 95 Room Air 05/30/17 19:37 99.5 05/30/17 19:36 101/56 05/30/17 17:47 Room Air 05/30/17 16:00 100.6 81 18 178/73 97 Room Air Height (Feet): 5 Height (Inches): 10.00 Weight (Pounds): 227 General Appearance: WD/WN, no acute distress HEENT: normocephalic, atraumatic, anicteric, mucous membranes moist, supple, no JVD Respiratory/Chest: chest wall non-tender, lungs clear, normal breath sounds, no respiratory distress Cardiovascular: normal peripheral pulses, normal rate, regular rhythm, no gallop/murmur, no JVD Abdomen: normal bowel sounds, soft, non tender, no organomegaly, non distended , no mass Extremities: no cyanosis, no clubbing Skin: no rash, no lesions Neurologic/Psychiatric: alert, oriented x 3 Microbiology Date/Time Source Procedure Growth Status 05/29/17 13:00 Blood Blood Culture - Preliminary NO GROWTH AFTER 24 HOURS Resulted 05/29/17 13:00 Blood Blood Culture - Preliminary NO GROWTH AFTER 24 HOURS Resulted 05/29/17 14:55 Nasal Nares MRSA Culture - Final NO METHICILLIN RESISTANT STAPH AUREUS... Complete 05/29/17 13:25 Urine,Clean Catch Urine Culture - Preliminary Strep Species, Alpha Hemolytic Resulted 05/29/17 14:55 Rectum VRE Culture - Final NO VANCOMYCIN RESISTANT ENTEROCOCCUS ... Complete Laboratory Tests Test 05/31/17 08:40 White Blood Count 5.7 K/UL (4.8-10.8) Red Blood Count 3.43 M/UL (4.70-6.10) L Hemoglobin 11.7 G/DL (14.2-18.0) L Hematocrit 34.3 % (42.0-52.0) L Mean Corpuscular Volume 100 FL (80-99) H Mean Corpuscular Hemoglobin 34.2 PG (27.0-31.0) H Mean Corpuscular Hemoglobin Concent 34.3 G/DL (32.0-36.0) Red Cell Distribution Width 13.2 % (11.6-14.8) Platelet Count 165 K/UL (150-450) Mean Platelet Volume 7.5 FL (6.5-10.1) Neutrophils (%) (Auto) 66.4 % (45.0-75.0) Lymphocytes (%) (Auto) 20.4 % (20.0-45.0) Monocytes (%) (Auto) 9.0 % (1.0-10.0) Eosinophils (%) (Auto) 3.2 % (0.0-3.0) H Basophils (%) (Auto) 1.0 % (0.0-2.0) Differential Total Cells Counted 100 Neutrophils % (Manual) 73 % (45-75) Lymphocytes % (Manual) 22 % (20-45) Monocytes % (Manual) 3 % (1-10) Eosinophils % (Manual) 2 % (0-3) Basophils % (Manual) 0 % (0-2) Band Neutrophils 0 % (0-8) Platelet Estimate Adequate Platelet Morphology Normal Erythrocyte Sedimentation Rate 53 MM/HR (0-30) H Reticulocyte Count 0.7 % (0.0-2.0) Prothrombin Time 10.7 SEC (9.30-11.50) Prothromb Time International Ratio 1.0 (0.9-1.1) Activated Partial Thromboplast Time 31 SEC (23-33) Sodium Level 134 mEQ/L (135-145) L Potassium Level 4.7 mEQ/L (3.4-4.9) Chloride Level 95 mEQ/L (98-107) L Carbon Dioxide Level 28 mEQ/L (20-30) Anion Gap 11 (5-15) Blood Urea Nitrogen 40 mg/dL (7-23) H Creatinine 5.6 mg/dL (0.7-1.2) H Estimat Glomerular Filtration Rate mL/min (>60) Glucose Level 230 mg/dL (74-106) H Calcium Level 8.9 mg/dL (8.6-10.2) Iron Level 38 ug/dL (59-158) L Total Iron Binding Capacity 147 ug/dL (250-400) L Percent Iron Saturation 26 % (15-50) Unsaturated Iron Binding 109 ug/dL (112-346) L Lactate Dehydrogenase 251 U/L (135-230) H Carcinoembryonic Antigen 1.8 ng/mL Vitamin B12 Level 225 pg/mL (211-946) Folate Pending Current Medications Medications (Trade) Dose Ordered Sig/Amanda Route PRN Reason Start Time Stop Time Status Last Admin Dose Admin Acetaminophen (Tylenol) 650 mg Q4H PRN ORAL fever>100.5 05/31/17 10:00 06/30/17 09:59 Al Hydroxide/Mg Hydroxide (Mylanta II) 30 ml Q6H PRN ORAL dyspepsia 05/31/17 09:30 06/30/17 09:29 Allopurinol (Zyloprim) 100 mg DAILY ORAL 06/01/17 09:00 07/01/17 08:59 Amlodipine Besylate (Norvasc) 10 mg DAILY ORAL 06/01/17 09:00 07/01/17 08:59 Benazepril HCl (Lotensin) 25 mg DAILY ORAL 05/31/17 10:00 06/30/17 09:59 Carvedilol (Coreg) 6.25 mg Q12HR ORAL 05/31/17 21:00 06/30/17 20:59 Cefepime HCl/ Dextrose (Maxipime/D5W) 55 ml @ 110 mls/hr Q24H IVPB 05/31/17 10:00 06/07/17 09:59 05/31/17 11:18 Clonidine HCl (Catapres) 0.2 mg TIDPRN PRN ORAL SBP > 160 05/31/17 09:30 06/30/17 09:29 Dextrose (Dextrose 50%) STAT PRN IV Hypoglycemia 05/31/17 09:30 06/30/17 09:29 Hydromorphone HCl (Dilaudid) 1 mg Q3H PRN IVP SEVERE PAIN 7-10 05/31/17 09:30 06/07/17 09:29 Insulin Aspart (NovoLOG) BEFORE MEALS AND HS SUBQ 05/31/17 11:30 06/30/17 11:29 05/31/17 12:27 Lorazepam (Ativan 2mg/ml 1ml) 0.5 mg Q4H PRN IV For Anxiety 05/31/17 10:00 06/07/17 09:59 Minoxidil (Loniten) 2.5 mg Q12HR ORAL 05/31/17 10:00 06/30/17 09:59 Mirtazapine (Remeron) 7.5 mg HSPRN PRN ORAL insomnia 05/31/17 19:45 06/30/17 19:44 Morphine Sulfate (Morphine Sulfate) 1 mg Q4H PRN IVP For Pain Scale 4-6 05/31/17 09:30 06/07/17 09:29 Ondansetron HCl (Zofran) 4 mg Q6H PRN IVP Nausea & Vomiting 05/31/17 09:30 06/30/17 09:29 Polyethylene Glycol (Miralax) 17 gm HSPRN PRN ORAL Constipation 05/31/17 21:00 06/30/17 20:59 Sevelamer Carbonate (Renvela) 800 mg THREE TIMES A DAY ORAL 05/31/17 13:00 06/30/17 12:59 05/31/17 12:25 Tamsulosin HCl (Flomax) 0.4 mg QHS ORAL 05/31/17 21:00 06/30/17 20:59 Christin Riley M.D. May 31, 2017 15:54
--- NOTE | 2017-05-31 16:35 | Nephrology Progress Note ---
Assessment/Plan Assessment 1. End-stage renal disease. 2. Anemia of chronic kidney disease. 3. Renal osteodystrophy. 4. Hypertension. 5. Hematuria.due to bladder mass 6. History of kidney stone. Plan plan to continue dialysis ct of abdomen monitoring phos urology fallow up Subjective Constitutional: Reports: no symptoms HEENT: Reports: no symptoms Genitourinary: Reports: frequency, hematuria Subjective alert and awake still has hematuria found to have bladder mass Objective Objective Last 24 Hour Vital Signs Date Time Temp Pulse Resp B/P Pulse Ox O2 Delivery O2 Flow Rate FiO2 05/31/17 15:48 99.5 83 22 99/48 95 Room Air 05/31/17 13:47 80 128/58 05/31/17 12:00 98.8 83 18 96/40 Room Air 05/31/17 10:00 99/40 05/31/17 10:00 99/40 05/31/17 08:56 83 111/57 05/31/17 08:48 83 111/57 05/31/17 08:00 89 05/31/17 07:55 99.5 83 20 111/57 97 Room Air 05/31/17 04:00 90 05/31/17 04:00 98.1 93 18 101/51 98 Room Air 05/31/17 00:00 85 05/31/17 00:00 99.5 91 20 112/64 98 Room Air 05/30/17 21:07 123/84 05/30/17 21:07 97 123/84 05/30/17 21:00 86 05/30/17 20:00 98.1 97 20 123/84 95 Room Air 05/30/17 19:37 99.5 05/30/17 19:36 101/56 05/30/17 17:47 Room Air Intake and Output 05/30/17 05/31/17 19:00 07:00 Output Total 2350 ml 400 ml Balance -2350 ml -400 ml Output Urine Total 250 ml 400 ml Hemodialysis UF 2100 ml Laboratory Tests 05/31/17 08:40: White Blood Count 5.7, Red Blood Count 3.43L, Hemoglobin 11.7L, Hematocrit 34.3L , Mean Corpuscular Volume 100H, Mean Corpuscular Hemoglobin 34.2H, Mean Corpuscular Hemoglobin Concent 34.3, Red Cell Distribution Width 13.2, Platelet Count 165, Mean Platelet Volume 7.5, Neutrophils (%) (Auto) 66.4, Lymphocytes (% ) (Auto) 20.4, Monocytes (%) (Auto) 9.0, Eosinophils (%) (Auto) 3.2H, Basophils (%) (Auto) 1.0, Differential Total Cells Counted 100, Neutrophils % (Manual) 73 , Lymphocytes % (Manual) 22, Monocytes % (Manual) 3, Eosinophils % (Manual) 2, Basophils % (Manual) 0, Band Neutrophils 0, Platelet Estimate Adequate, Platelet Morphology Normal, Erythrocyte Sedimentation Rate 53H, Reticulocyte Count 0.7, Prothrombin Time 10.7, Prothromb Time International Ratio 1.0, Activated Partial Thromboplast Time 31, Sodium Level 134L, Potassium Level 4.7, Chloride Level 95L, Carbon Dioxide Level 28, Anion Gap 11, Blood Urea Nitrogen 40H, Creatinine 5.6H, Estimat Glomerular Filtration Rate , Glucose Level 230H, Calcium Level 8.9, Iron Level 38L, Total Iron Binding Capacity 147L, Percent Iron Saturation 26, Unsaturated Iron Binding 109L, Lactate Dehydrogenase 251H, Carcinoembryonic Antigen 1.8, Vitamin B12 Level 225, Folate [Pending] Height (Feet): 5 Height (Inches): 10.00 Weight (Pounds): 227 Objective HEAD AND NECK: No JVP. No LAD. No thyromegaly. Extraocular movements intact. Pupils are reactive to light and accommodation. LUNGS: Clear to auscultation. CARDIAC: Regular rate and rhythm. S1 and S2. No murmur. No rub. ABDOMEN: Soft, nontender, and nondistended. EXTREMITIES: Bilateral [id number] amputation. No clubbing. No cyanosis. The patient has a Houser catheter draining some bloody urine. BRITTON EPPS May 31, 2017 16:35
[2017-05-31] MEDS: Tamsulosin 0.4mg cap ORAL SCH (20:24)
[2017-05-31] MEDS ORDERED: Miralax 17gm pkt ORAL PRN (21:00)
--- NOTE | 2017-05-31 23:46 | Cardiology Progress Note ---
Assessment/Plan Assessment/Plan 1. Accelerated hypertension, continue minoxidil, carvedilol and amlodipine. 2. End-stage renal disease. 3. Hematuria/dysuria, bladder mass, urology follow up. 4. 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 5. PAD, s/p bilateral BKA. Subjective Subjective No chest pain or SOB. Transferred to the med-surg unit. Objective Last 24 Hour Vital Signs Date Time Temp Pulse Resp B/P Pulse Ox O2 Delivery O2 Flow Rate FiO2 05/31/17 20:27 81 116/47 05/31/17 20:00 98.3 81 20 116/47 98 Nasal Cannula 2.0 05/31/17 15:48 99.5 83 22 99/48 95 Room Air 05/31/17 13:47 80 128/58 05/31/17 12:00 98.8 83 18 96/40 Room Air 05/31/17 10:00 99/40 05/31/17 10:00 99/40 05/31/17 08:56 83 111/57 05/31/17 08:48 83 111/57 05/31/17 08:00 89 05/31/17 07:55 99.5 83 20 111/57 97 Room Air 05/31/17 04:00 90 05/31/17 04:00 98.1 93 18 101/51 98 Room Air 05/31/17 00:00 85 05/31/17 00:00 99.5 91 20 112/64 98 Room Air Intake and Output 05/30/17 05/31/17 19:00 07:00 Output Total 2350 ml 400 ml Balance -2350 ml -400 ml Output Urine Total 250 ml 400 ml Hemodialysis UF 2100 ml Laboratory Tests Test 05/31/17 08:40 White Blood Count 5.7 K/UL (4.8-10.8) Red Blood Count 3.43 M/UL (4.70-6.10) L Hemoglobin 11.7 G/DL (14.2-18.0) L Hematocrit 34.3 % (42.0-52.0) L Mean Corpuscular Volume 100 FL (80-99) H Mean Corpuscular Hemoglobin 34.2 PG (27.0-31.0) H Mean Corpuscular Hemoglobin Concent 34.3 G/DL (32.0-36.0) Red Cell Distribution Width 13.2 % (11.6-14.8) Platelet Count 165 K/UL (150-450) Mean Platelet Volume 7.5 FL (6.5-10.1) Neutrophils (%) (Auto) 66.4 % (45.0-75.0) Lymphocytes (%) (Auto) 20.4 % (20.0-45.0) Monocytes (%) (Auto) 9.0 % (1.0-10.0) Eosinophils (%) (Auto) 3.2 % (0.0-3.0) H Basophils (%) (Auto) 1.0 % (0.0-2.0) Differential Total Cells Counted 100 Neutrophils % (Manual) 73 % (45-75) Lymphocytes % (Manual) 22 % (20-45) Monocytes % (Manual) 3 % (1-10) Eosinophils % (Manual) 2 % (0-3) Basophils % (Manual) 0 % (0-2) Band Neutrophils 0 % (0-8) Platelet Estimate Adequate Platelet Morphology Normal Erythrocyte Sedimentation Rate 53 MM/HR (0-30) H Reticulocyte Count 0.7 % (0.0-2.0) Prothrombin Time 10.7 SEC (9.30-11.50) Prothromb Time International Ratio 1.0 (0.9-1.1) Activated Partial Thromboplast Time 31 SEC (23-33) Sodium Level 134 mEQ/L (135-145) L Potassium Level 4.7 mEQ/L (3.4-4.9) Chloride Level 95 mEQ/L (98-107) L Carbon Dioxide Level 28 mEQ/L (20-30) Anion Gap 11 (5-15) Blood Urea Nitrogen 40 mg/dL (7-23) H Creatinine 5.6 mg/dL (0.7-1.2) H Estimat Glomerular Filtration Rate mL/min (>60) Glucose Level 230 mg/dL (74-106) H Calcium Level 8.9 mg/dL (8.6-10.2) Iron Level 38 ug/dL (59-158) L Total Iron Binding Capacity 147 ug/dL (250-400) L Percent Iron Saturation 26 % (15-50) Unsaturated Iron Binding 109 ug/dL (112-346) L Lactate Dehydrogenase 251 U/L (135-230) H Carcinoembryonic Antigen 1.8 ng/mL Vitamin B12 Level 225 pg/mL (211-946) Folate Pending Microbiology Date/Time Source Procedure Growth Status 05/29/17 13:00 Blood Blood Culture - Preliminary NO GROWTH AFTER 24 HOURS Resulted 05/29/17 13:00 Blood Blood Culture - Preliminary NO GROWTH AFTER 24 HOURS Resulted 05/29/17 14:55 Nasal Nares MRSA Culture - Final NO METHICILLIN RESISTANT STAPH AUREUS... Complete 05/29/17 13:25 Urine,Clean Catch Urine Culture - Preliminary Strep Species, Alpha Hemolytic Resulted 05/29/17 14:55 Rectum VRE Culture - Final NO VANCOMYCIN RESISTANT ENTEROCOCCUS ... Complete Objective HEENT: Atraumatic and normocephalic. Pupils are equal, round, and reactive to light and accommodation. Extraocular muscles intact. NECK: JVP less than 5 cm. No carotid bruit. Carotid upstrokes 2+ bilaterally. LUNGS: Clear to auscultation bilaterally. CARDIOVASCULAR: Normal S1 and S2. Regular rate and rhythm. No murmurs, gallops, or rubs. PMI is at fourth intercostal space at the midclavicular line. ABDOMEN: Soft, nontender, and nondistended. No hepatosplenomegaly. Positive bowel sounds. EXTREMITIES: No evidence of edema, clubbing, or cyanosis. ARIA GRAVES May 31, 2017 23:46
[2017-06-01] VITALS: BP 96/85
[2017-06-01 04:00] VITALS: BP 109/45
[2017-06-01 04:04] LABS: BASOPHILS % (AUTO) 0.3 % (0.0-2.0); EOSINOPHILS % (AUTO) 4.4 % (0.0-3.0); LYMPHOCYTES % (AUTO) 18.5 % (20.0-45.0); MEAN CORPUSCULAR HEMOGLOBIN 32.6 PG (27.0-31.0); MEAN CORPUSCULAR HGB CONC 33.2 G/DL (32.0-36.0); MEAN CORPUSCULAR VOLUME 98 FL (80-99); MEAN PLATELET VOLUME 6.4 FL (6.5-10.1); MONOCYTES % (AUTO) 12.7 % (1.0-10.0); NEUTROPHILS % (AUTO) 64.1 % (45.0-75.0); PLATELET COUNT 157 K/UL (150-450); RED BLOOD COUNT 3.45 M/UL (4.70-6.10); RED CELL DISTRIBUTION WIDTH 12.9 % (11.6-14.8); WHITE BLOOD COUNT 6.5 K/UL (4.8-10.8)
[2017-06-01 04:31] LABS: ANION GAP 12 (5-15); CARBON DIOXIDE 27 mEQ/L (20-30); CHLORIDE 94 mEQ/L (98-107); CREATININE 6.3 mg/dL (0.7-1.2); HEMOLYSIS 2; POTASSIUM 4.4 mEQ/L (3.4-4.9); SODIUM 133 mEQ/L (135-145)
--- NOTE | 2017-06-01 05:15 | Consultation ---
DATE OF CONSULTATION: 05/31/2017 HEMATOLOGY/ONCOLOGY CONSULTATION REQUESTING PHYSICIAN: Varun Cee D.O. REASON FOR CONSULTATION: Evaluation of anemia as well as hematuria. IDENTIFICATION DATA: Dear Dr. Varun Cee, The patient is a pleasant 82-year-old male with past medical history, which is significant for dialysis, end-stage renal disease, diabetes mellitus, hypertension, and history of kidney stones. He is status post TURP and bilateral leg amputation. 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 Hematology service was consulted in addition to hematuria. PAST MEDICAL HISTORY: Diabetes mellitus, end-stage renal disease on hemodialysis, hypertension, peripheral arterial disease, and status post below knee amputation bilaterally. PAST SURGICAL HISTORY: Bilateral below knee amputation. MEDICATIONS: Tylenol, allopurinol, amlodipine, aspirin, benazepril, bisacodyl, , Colace, Pepcid, finasteride, Lasix, insulin Lantus, levofloxacin, metoprolol, Fleet Enema, Starlix, Renvela, sodium citrate, Flomax, warfarin, and zinc sulfate. ALLERGIES: No known drug allergies. SOCIAL HISTORY: No alcohol, tobacco, or illicit drug use. FAMILY HISTORY: No coronary artery disease post history of anemia that is significant is noted. REVIEW OF SYSTEMS: Constitutional: No fever, chills, or night sweats. Skin: No rashes, lumps, or itching. HEENT: No headache, hearing, or vision changes. Breasts: No lumps, pain, or discharge. Pulmonary: No cough, sputum, or shortness of breath. Gastrointestinal: No nausea, vomiting, or diarrhea. Genitourinary: Some hematuria and dysuria noted. . PHYSICAL EXAMINATION: VITAL SIGNS: Blood pressure 126/75, respiratory rate 12, pulse of 80, and temperature 98 degrees Fahrenheit. GENERAL: No acute distress. PULMONARY: Decreased breath sounds. Some crackles noted at the bases. ABDOMEN: Soft, nontender, and nondistended. EXTREMITIES: No cyanosis, clubbing, or edema. LABORATORY DATA: Hemoglobin currently at 11.2, platelet count 210,000, and WBC 7.7. Troponin less than 0.3. ASSESSMENT AND PLAN: 1. Anemia. 2. hematuria. 3. History of kidney stone. Consider Urology evaluation. To be seen by urologist on this admission. 4. Anemia of chronic kidney disease dialysis. 5. Decreased hemoglobin and hematocrit for gastrointestinal bleed. Occult blood is pending. 6. End-stage renal disease on hemodialysis. 7. Hypertension. 8. Enlarged prostate. 9. Increasing benign prostatic hypertrophy versus prostate neoplasm. Urology followup. 10. Possible posterior bladder wall thickening. CAT scan results pending. 11. Continue to closely follow. Anemia workup to be completed and consider the use of iron if needed. I appreciate consultation. Landry Gannon M.D. DR: Nando JOB#: [id number] CC:
[2017-06-01] MEDS: NovoLOG Insulin Flexpen SUBQ SCH ×4 (06:18→20:44)
[2017-06-01 08:00] VITALS: BP 108/63
[2017-06-01 08:11] LABS: OTHERS PATHOLOGIST COMMENT
[2017-06-01] MEDS: Carvedilol 6.25mg Tab ORAL SCH ×2 (09:00→20:45)
[2017-06-01] MEDS: Benazepril 10mg tab ORAL SCH (09:00)
[2017-06-01] MEDS: Renvela 800mg Pkt ORAL SCH ×3 (09:06→17:16)
[2017-06-01] MEDS: Allopurinol 100mg Tab ORAL SCH (09:08)
[2017-06-01] MEDS: Minoxidil 2.5mg tab ORAL SCH ×2 (09:09→20:46)
[2017-06-01] MEDS: Cefepime HCl 1 GM in D5W 55 ML IVPB SCH (09:13)
[2017-06-01] MEDS ORDERED: NS 275ml ONE (10:07)
[2017-06-01 11:55] VITALS: BP 108/52
--- NOTE | 2017-06-01 14:24 | Cardiology Progress Note ---
Assessment/Plan Assessment/Plan 1. Accelerated hypertension, resolved, BP borderline, continue minoxidil, carvedilol, decrease amlodipine to 5mg daily. 2. End-stage renal disease. 3. Hematuria/dysuria, bladder mass, urology follow up. 4. History of DM,consider senior living aspirin and atorvastatin. 5. PAD, s/p bilateral BKA. Subjective Subjective No chest pain or SOB. Not on the telemetry unit. Objective Last 24 Hour Vital Signs Date Time Temp Pulse Resp B/P Pulse Ox O2 Delivery O2 Flow Rate FiO2 06/01/17 12:55 Room Air 06/01/17 11:55 98.4 90 20 108/52 97 Room Air 06/01/17 09:09 109/45 06/01/17 09:09 75 109/45 06/01/17 09:00 90 108/63 06/01/17 09:00 108/63 06/01/17 08:00 98.8 90 18 108/63 96 Room Air 06/01/17 04:00 98.1 75 18 109/45 98 Room Air 2.0 06/01/17 00:00 98.1 57 20 96/85 100 Room Air 05/31/17 20:27 81 116/47 05/31/17 20:00 98.3 81 20 116/47 98 Room Air 05/31/17 15:48 99.5 83 22 99/48 95 Room Air Intake and Output 05/31/17 06/01/17 19:00 07:00 Intake Total 510 ml 350 ml Output Total 750 ml 150 ml Balance -240 ml 200 ml Intake Oral 510 ml Other 350 ml Output Urine Total 750 ml 150 ml 2D Echo: LVEF 60%, Mild LVH, Grade I LVDD, Mild IL Laboratory Tests Test 06/01/17 03:50 White Blood Count 6.5 K/UL (4.8-10.8) Red Blood Count 3.45 M/UL (4.70-6.10) L Hemoglobin 11.3 G/DL (14.2-18.0) L Hematocrit 34.0 % (42.0-52.0) L Mean Corpuscular Volume 98 FL (80-99) Mean Corpuscular Hemoglobin 32.6 PG (27.0-31.0) H Mean Corpuscular Hemoglobin Concent 33.2 G/DL (32.0-36.0) Red Cell Distribution Width 12.9 % (11.6-14.8) Platelet Count 157 K/UL (150-450) Mean Platelet Volume 6.4 FL (6.5-10.1) L Neutrophils (%) (Auto) 64.1 % (45.0-75.0) Lymphocytes (%) (Auto) 18.5 % (20.0-45.0) L Monocytes (%) (Auto) 12.7 % (1.0-10.0) H Eosinophils (%) (Auto) 4.4 % (0.0-3.0) H Basophils (%) (Auto) 0.3 % (0.0-2.0) Sodium Level 133 mEQ/L (135-145) L Potassium Level 4.4 mEQ/L (3.4-4.9) Chloride Level 94 mEQ/L (98-107) L Carbon Dioxide Level 27 mEQ/L (20-30) Anion Gap 12 (5-15) Blood Urea Nitrogen 48 mg/dL (7-23) H Creatinine 6.3 mg/dL (0.7-1.2) H Estimat Glomerular Filtration Rate mL/min (>60) Glucose Level 143 mg/dL (74-106) H Calcium Level 9.0 mg/dL (8.6-10.2) Microbiology Date/Time Source Procedure Growth Status 05/29/17 14:55 Nasal Nares MRSA Culture - Final NO METHICILLIN RESISTANT STAPH AUREUS... Complete 05/29/17 14:55 Rectum VRE Culture - Final NO VANCOMYCIN RESISTANT ENTEROCOCCUS ... Complete Objective HEENT: Atraumatic and normocephalic. Pupils are equal, round, and reactive to light and accommodation. Extraocular muscles intact. NECK: JVP less than 5 cm. No carotid bruit. Carotid upstrokes 2+ bilaterally. LUNGS: Clear to auscultation bilaterally. CARDIOVASCULAR: Normal S1 and S2. Regular rate and rhythm. No murmurs, gallops, or rubs. PMI is at fourth intercostal space at the midclavicular line. ABDOMEN: Soft, nontender, and nondistended. No hepatosplenomegaly. Positive bowel sounds. EXTREMITIES: No evidence of edema, clubbing, or cyanosis. ARIA GRAVES Jun 01, 2017 14:24
--- NOTE | 2017-06-01 14:48 | General Progress Note ---
Assessment/Plan Assessment/Plan 1. Anemia 2/2 hematuria --> possible bladder mass --> anemia work up ordered, ferritin pending 3. History of kidney stone. Consider Urology evaluation. To be seen by urologist on this admission. 4. Anemia of chronic kidney disease, on dialysis. 5. Decreased hemoglobin and hematocrit for gastrointestinal bleed. Occult blood is pending. 6. End-stage renal disease on hemodialysis. 7. Hypertension. 8. Enlarged prostate. 9. Increasing benign prostatic hypertrophy versus prostate neoplasm. Urology followup. 10. Possible posterior bladder wall thickening. 11. Continue to closely follow. Anemia workup to be completed and consider the use of iron if needed. Subjective Constitutional: Reports: no symptoms HEENT: Reports: no symptoms Cardiovascular: Reports: no symptoms Respiratory: Reports: no symptoms Gastrointestinal/Abdominal: Reports: no symptoms Genitourinary: Reports: pain Neurologic/Psychiatric: Reports: no symptoms Endocrine: Reports: no symptoms Hematologic/Lymphatic: Reports: anemia Allergies: Coded Allergies: No Known Allergies (Unverified , 08/12/14) Subjective NAD Objective Last 24 Hour Vital Signs Date Time Temp Pulse Resp B/P Pulse Ox O2 Delivery O2 Flow Rate FiO2 06/01/17 12:55 Room Air 06/01/17 11:55 98.4 90 20 108/52 97 Room Air 06/01/17 09:09 109/45 06/01/17 09:09 75 109/45 06/01/17 09:00 90 108/63 06/01/17 09:00 108/63 06/01/17 08:00 98.8 90 18 108/63 96 Room Air 06/01/17 04:00 98.1 75 18 109/45 98 Room Air 2.0 06/01/17 00:00 98.1 57 20 96/85 100 Room Air 05/31/17 20:27 81 116/47 05/31/17 20:00 98.3 81 20 116/47 98 Room Air 05/31/17 15:48 99.5 83 22 99/48 95 Room Air Intake and Output 05/31/17 06/01/17 19:00 07:00 Intake Total 510 ml 350 ml Output Total 750 ml 150 ml Balance -240 ml 200 ml Intake Oral 510 ml Other 350 ml Output Urine Total 750 ml 150 ml Laboratory Tests 06/01/17 03:50: White Blood Count 6.5, Red Blood Count 3.45L, Hemoglobin 11.3L, Hematocrit 34.0L , Mean Corpuscular Volume 98, Mean Corpuscular Hemoglobin 32.6H, Mean Corpuscular Hemoglobin Concent 33.2, Red Cell Distribution Width 12.9, Platelet Count 157, Mean Platelet Volume 6.4L, Neutrophils (%) (Auto) 64.1, Lymphocytes ( %) (Auto) 18.5L, Monocytes (%) (Auto) 12.7H, Eosinophils (%) (Auto) 4.4H, Basophils (%) (Auto) 0.3, Sodium Level 133L, Potassium Level 4.4, Chloride Level 94L, Carbon Dioxide Level 27, Anion Gap 12, Blood Urea Nitrogen 48H, Creatinine 6.3H, Estimat Glomerular Filtration Rate , Glucose Level 143H, Calcium Level 9.0 Height (Feet): 5 Height (Inches): 10.00 Weight (Pounds): 227 General Appearance: no apparent distress EENT: PERRL/EOMI Neck: normal alignment Cardiovascular: regularly irregular Edema: no edema noted Pedal (L), no edema noted Pedal (R) 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
--- NOTE | 2017-06-01 15:08 | Infectious Diseases Prog Note ---
Assessment/Plan Problems: (1) Hematuria Assessment & Plan: with possible bladder mass, recommend urology consult for cystoscopy and biopsy . continue antibiotics (2) UTI (lower urinary tract infection) Assessment & Plan: due to strep spp alpha hemolytics , will switch cefepime empirically to ceftriaxon . will treat for 7 days (3) Dysuria Assessment & Plan: due to uti and enlarged prostate , will screen for HIV, syphilis, gonorrhea and chlamydia, recommend cystoscopy for further evaluation (4) DM (diabetes mellitus) Assessment & Plan: recommend tight glycemic control to keep blood glucose between 80-120 (5) ESRD (end stage renal disease) on dialysis Assessment & Plan: on HD, renal is following (6) Acute thromboembolism of right popliteal vein Assessment & Plan: recommend anticoagulation and IVF filter if continues to have hematuria , recommend hematology consult (7) Pleural effusion, left Assessment & Plan: recommend thoracentesis and fluids to be sent for culture, gram stain, fungal and AFB . and cytology Subjective Constitutional: Reports: no symptoms HEENT: Reports: no symptoms Respiratory: Reports: no symptoms Breasts: Reports: no symptoms Cardiovascular: Reports: no symptoms Gastrointestinal/Abdominal: Reports: no symptoms Genitourinary: Reports: hematuria Neurologic: Reports: no symptoms Psychiatric: Reports: no symptoms Skin: Reports: no symptoms Endocrine: Reports: no symptoms Hematologic: Reports: no symptoms Musculoskeletal: Reports: no symptoms Allergies: Coded Allergies: No Known Allergies (Unverified , 08/12/14) Objective Vital Signs Last 24 Hour Vital Signs Date Time Temp Pulse Resp B/P Pulse Ox O2 Delivery O2 Flow Rate FiO2 06/01/17 12:55 Room Air 06/01/17 11:55 98.4 90 20 108/52 97 Room Air 06/01/17 09:09 109/45 06/01/17 09:09 75 109/45 06/01/17 09:00 90 108/63 06/01/17 09:00 108/63 06/01/17 08:00 98.8 90 18 108/63 96 Room Air 06/01/17 04:00 98.1 75 18 109/45 98 Room Air 2.0 06/01/17 00:00 98.1 57 20 96/85 100 Room Air 05/31/17 20:27 81 116/47 05/31/17 20:00 98.3 81 20 116/47 98 Room Air 05/31/17 15:48 99.5 83 22 99/48 95 Room Air Height (Feet): 5 Height (Inches): 10.00 Weight (Pounds): 227 General Appearance: WD/WN, no acute distress HEENT: normocephalic, atraumatic, anicteric, mucous membranes moist Respiratory/Chest: chest wall non-tender, lungs clear, normal breath sounds, no respiratory distress, no accessory muscle use, decreased breath sounds Cardiovascular: normal peripheral pulses, normal rate, regular rhythm, no gallop/murmur, no JVD Abdomen: normal bowel sounds, soft, non tender, no organomegaly, non distended , no mass, no scars Genitourinary: normal external genitalia Extremities: no cyanosis, no clubbing Skin: no rash, no lesions, ulcers Neurologic/Psychiatric: alert Laboratory Tests Test 06/01/17 03:50 White Blood Count 6.5 K/UL (4.8-10.8) Red Blood Count 3.45 M/UL (4.70-6.10) L Hemoglobin 11.3 G/DL (14.2-18.0) L Hematocrit 34.0 % (42.0-52.0) L Mean Corpuscular Volume 98 FL (80-99) Mean Corpuscular Hemoglobin 32.6 PG (27.0-31.0) H Mean Corpuscular Hemoglobin Concent 33.2 G/DL (32.0-36.0) Red Cell Distribution Width 12.9 % (11.6-14.8) Platelet Count 157 K/UL (150-450) Mean Platelet Volume 6.4 FL (6.5-10.1) L Neutrophils (%) (Auto) 64.1 % (45.0-75.0) Lymphocytes (%) (Auto) 18.5 % (20.0-45.0) L Monocytes (%) (Auto) 12.7 % (1.0-10.0) H Eosinophils (%) (Auto) 4.4 % (0.0-3.0) H Basophils (%) (Auto) 0.3 % (0.0-2.0) Sodium Level 133 mEQ/L (135-145) L Potassium Level 4.4 mEQ/L (3.4-4.9) Chloride Level 94 mEQ/L (98-107) L Carbon Dioxide Level 27 mEQ/L (20-30) Anion Gap 12 (5-15) Blood Urea Nitrogen 48 mg/dL (7-23) H Creatinine 6.3 mg/dL (0.7-1.2) H Estimat Glomerular Filtration Rate mL/min (>60) Glucose Level 143 mg/dL (74-106) H Calcium Level 9.0 mg/dL (8.6-10.2) Current Medications Medications (Trade) Dose Ordered Sig/Amanda Route PRN Reason Start Time Stop Time Status Last Admin Dose Admin Acetaminophen (Tylenol) 650 mg Q4H PRN ORAL fever>100.5 05/31/17 10:00 06/30/17 09:59 05/31/17 18:07 Al Hydroxide/Mg Hydroxide (Mylanta II) 30 ml Q6H PRN ORAL dyspepsia 05/31/17 09:30 06/30/17 09:29 Allopurinol (Zyloprim) 100 mg DAILY ORAL 06/01/17 09:00 07/01/17 08:59 06/01/17 09:08 Amlodipine Besylate 5 mg 5 mg DAILY ORAL 06/02/17 09:00 07/02/17 08:59 Benazepril HCl (Lotensin) 25 mg DAILY ORAL 05/31/17 10:00 06/30/17 09:59 Carvedilol (Coreg) 6.25 mg Q12HR ORAL 05/31/17 21:00 06/30/17 20:59 Ceftriaxone Sodium/Dextrose (Rocephin/D5W) 55 ml @ 110 mls/hr Q24H IVPB 06/01/17 15:15 06/08/17 15:14 UNV Clonidine HCl (Catapres) 0.2 mg TIDPRN PRN ORAL SBP > 160 05/31/17 09:30 06/30/17 09:29 Dextrose (Dextrose 50%) STAT PRN IV Hypoglycemia 05/31/17 09:30 06/30/17 09:29 Hydromorphone HCl (Dilaudid) 1 mg Q3H PRN IVP SEVERE PAIN 7-10 05/31/17 09:30 06/07/17 09:29 Insulin Aspart (NovoLOG) BEFORE MEALS AND HS SUBQ 05/31/17 11:30 06/30/17 11:29 06/01/17 12:08 Lorazepam (Ativan 2mg/ml 1ml) 0.5 mg Q4H PRN IV For Anxiety 05/31/17 10:00 06/07/17 09:59 Minoxidil (Loniten) 2.5 mg Q12HR ORAL 05/31/17 10:00 06/30/17 09:59 06/01/17 09:09 Mirtazapine (Remeron) 7.5 mg HSPRN PRN ORAL insomnia 05/31/17 19:45 06/30/17 19:44 Morphine Sulfate (Morphine Sulfate) 1 mg Q4H PRN IVP For Pain Scale 4-6 05/31/17 09:30 06/07/17 09:29 Ondansetron HCl (Zofran) 4 mg Q6H PRN IVP Nausea & Vomiting 05/31/17 09:30 06/30/17 09:29 Polyethylene Glycol (Miralax) 17 gm HSPRN PRN ORAL Constipation 05/31/17 21:00 06/30/17 20:59 Sevelamer Carbonate (Renvela) 800 mg THREE TIMES A DAY ORAL 05/31/17 13:00 06/30/17 12:59 06/01/17 09:06 Tamsulosin HCl (Flomax) 0.4 mg QHS ORAL 05/31/17 21:00 06/30/17 20:59 05/31/17 20:24 Christin Riley M.D. Jun 01, 2017 15:08
--- NOTE | 2017-06-01 15:38 | Nephrology Progress Note ---
Assessment/Plan Assessment 1. End-stage renal disease. 2. Anemia of chronic kidney disease. 3. Renal osteodystrophy. 4. Hypertension. 5. Hematuria.due to bladder mass 6. History of kidney stone. Plan plan to continue dialysis ct of abdomen monitoring phos urology fallow up Subjective Constitutional: Reports: no symptoms HEENT: Reports: no symptoms Genitourinary: Reports: frequency, hematuria Subjective alert and awake still has hematuria found to have bladder mass Objective Objective Last 24 Hour Vital Signs Date Time Temp Pulse Resp B/P Pulse Ox O2 Delivery O2 Flow Rate FiO2 06/01/17 12:55 Room Air 06/01/17 11:55 98.4 90 20 108/52 97 Room Air 06/01/17 09:09 109/45 06/01/17 09:09 75 109/45 06/01/17 09:00 90 108/63 06/01/17 09:00 108/63 06/01/17 08:00 98.8 90 18 108/63 96 Room Air 06/01/17 04:00 98.1 75 18 109/45 98 Room Air 2.0 06/01/17 00:00 98.1 57 20 96/85 100 Room Air 05/31/17 20:27 81 116/47 05/31/17 20:00 98.3 81 20 116/47 98 Room Air 05/31/17 15:48 99.5 83 22 99/48 95 Room Air Intake and Output 05/31/17 06/01/17 19:00 07:00 Intake Total 510 ml 350 ml Output Total 750 ml 150 ml Balance -240 ml 200 ml Intake Oral 510 ml Other 350 ml Output Urine Total 750 ml 150 ml Laboratory Tests 06/01/17 03:50: White Blood Count 6.5, Red Blood Count 3.45L, Hemoglobin 11.3L, Hematocrit 34.0L , Mean Corpuscular Volume 98, Mean Corpuscular Hemoglobin 32.6H, Mean Corpuscular Hemoglobin Concent 33.2, Red Cell Distribution Width 12.9, Platelet Count 157, Mean Platelet Volume 6.4L, Neutrophils (%) (Auto) 64.1, Lymphocytes ( %) (Auto) 18.5L, Monocytes (%) (Auto) 12.7H, Eosinophils (%) (Auto) 4.4H, Basophils (%) (Auto) 0.3, Sodium Level 133L, Potassium Level 4.4, Chloride Level 94L, Carbon Dioxide Level 27, Anion Gap 12, Blood Urea Nitrogen 48H, Creatinine 6.3H, Estimat Glomerular Filtration Rate , Glucose Level 143H, Calcium Level 9.0 Height (Feet): 5 Height (Inches): 10.00 Weight (Pounds): 227 Objective HEAD AND NECK: No JVP. No LAD. No thyromegaly. Extraocular movements intact. Pupils are reactive to light and accommodation. LUNGS: Clear to auscultation. CARDIAC: Regular rate and rhythm. S1 and S2. No murmur. No rub. ABDOMEN: Soft, nontender, and nondistended. EXTREMITIES: Bilateral [id number] amputation. No clubbing. No cyanosis. The patient has a Houser catheter draining some bloody urine. BRITTON EPPS Jun 01, 2017 15:38
[2017-06-01 16:00] VITALS: BP 111/46
--- NOTE | 2017-06-01 16:08 | General Progress Note ---
Assessment/Plan Problem List: (1) Renal failure (ARF), acute on chronic ICD Codes: N17.9 - Acute kidney failure, unspecified; N18.9 - Chronic kidney disease, unspecified SNOMED: 910653732 (2) CKD (chronic kidney disease) stage 3, GFR 30-59 ml/min ICD Codes: N18.3 - Chronic kidney disease, stage 3 (moderate) SNOMED: 072533577 (3) Hematuria ICD Codes: R31.9 - Hematuria SNOMED: 52982047 Qualifiers: Qualified Codes: R31.9 - Hematuria, unspecified (4) DM (diabetes mellitus) ICD Codes: E11.9 - DM (diabetes mellitus) SNOMED: 96442041 Status: stable, progressing, tolerating diet Assessment/Plan ot pt diet abx cbc bmp am uro and heme eval Subjective Constitutional: Reports: weakness Allergies: Coded Allergies: No Known Allergies (Unverified , 08/12/14) All Systems: reviewed and negative except above Subjective pos hematuria Objective Last 24 Hour Vital Signs Date Time Temp Pulse Resp B/P Pulse Ox O2 Delivery O2 Flow Rate FiO2 06/01/17 12:55 Room Air 06/01/17 11:55 98.4 90 20 108/52 97 Room Air 06/01/17 09:09 109/45 06/01/17 09:09 75 109/45 06/01/17 09:00 90 108/63 06/01/17 09:00 108/63 06/01/17 08:00 98.8 90 18 108/63 96 Room Air 06/01/17 04:00 98.1 75 18 109/45 98 Room Air 2.0 06/01/17 00:00 98.1 57 20 96/85 100 Room Air 05/31/17 20:27 81 116/47 05/31/17 20:00 98.3 81 20 116/47 98 Room Air Intake and Output 05/31/17 06/01/17 19:00 07:00 Intake Total 510 ml 350 ml Output Total 750 ml 150 ml Balance -240 ml 200 ml Intake Oral 510 ml Other 350 ml Output Urine Total 750 ml 150 ml Laboratory Tests 06/01/17 03:50: White Blood Count 6.5, Red Blood Count 3.45L, Hemoglobin 11.3L, Hematocrit 34.0L , Mean Corpuscular Volume 98, Mean Corpuscular Hemoglobin 32.6H, Mean Corpuscular Hemoglobin Concent 33.2, Red Cell Distribution Width 12.9, Platelet Count 157, Mean Platelet Volume 6.4L, Neutrophils (%) (Auto) 64.1, Lymphocytes ( %) (Auto) 18.5L, Monocytes (%) (Auto) 12.7H, Eosinophils (%) (Auto) 4.4H, Basophils (%) (Auto) 0.3, Sodium Level 133L, Potassium Level 4.4, Chloride Level 94L, Carbon Dioxide Level 27, Anion Gap 12, Blood Urea Nitrogen 48H, Creatinine 6.3H, Estimat Glomerular Filtration Rate , Glucose Level 143H, Calcium Level 9.0 Height (Feet): 5 Height (Inches): 10.00 Weight (Pounds): 227 General Appearance: lethargic EENT: normal ENT inspection Neck: normal alignment Cardiovascular: normal peripheral pulses, normal rate, regular rhythm Respiratory/Chest: chest wall non-tender, lungs clear, normal breath sounds Abdomen: normal bowel sounds, non tender, soft Extremities: normal inspection Edema: no edema noted Arm (L), no edema noted Arm (R), no edema noted Leg (L), no edema noted Leg (R), no edema noted Pedal (L), no edema noted Pedal (R), no edema noted Generalized Neurologic: responsive, motor weakness Skin: normal pigmentation, warm/dry YNES LIN Jun 01, 2017 16:08
--- NOTE | 2017-06-01 18:15 | Progress Note ---
SUBJECTIVE: The patient is doing well. No behavior issues. He still has episodes of anxiety, engaged during the evaluation. MENTAL STATUS EXAMINATION: The patient is having mild anxiety. Mood is dysphoric. Affect is constricted. Congruent with mood. Thought process is linear. Thought content, no suicidal or homicidal ideations. ASSESSMENT: Anxiety disorder and insomnia. PLAN: 1. The patient will be continued on Remeron and Ativan. 2. We will continue follow and readjust the medications. Chilango Young M.D. DR: SHAHID JOB#: [id number] CC:
--- NOTE | 2017-06-01 19:59 | Pulmonology Progress Note ---
Assessment/Plan Problems: (1) Pleural effusion, left Assessment & Plan: chronic, pleural effusios are very common in pts with ESRF and CHF (2) Hematuria (3) Anemia in CKD (chronic kidney disease) (4) DM (diabetes mellitus) (5) ESRD (end stage renal disease) on dialysis (6) History of below knee amputation Assessment/Plan titrate fio2 to sat of 92 frequent flushing of gilbert check all cutures continue current meds all notes reviewed dvt prophylaxis Subjective Constitutional: Reports: no symptoms HEENT: Repors: no symptoms Allergies: Coded Allergies: No Known Allergies (Unverified , 08/12/14) Objective Last 24 Hour Vital Signs Date Time Temp Pulse Resp B/P Pulse Ox O2 Delivery O2 Flow Rate FiO2 06/01/17 16:30 Room Air 06/01/17 16:16 98.4 06/01/17 16:00 98.2 96 17 111/46 96 Room Air 06/01/17 12:55 Room Air 06/01/17 11:55 98.4 90 20 108/52 97 Room Air 06/01/17 09:09 109/45 06/01/17 09:09 75 109/45 06/01/17 09:00 90 108/63 06/01/17 09:00 108/63 06/01/17 08:00 98.8 90 18 108/63 96 Room Air 06/01/17 04:00 98.1 75 18 109/45 98 Room Air 2.0 06/01/17 00:00 98.1 57 20 96/85 100 Room Air 05/31/17 20:27 81 116/47 05/31/17 20:00 98.3 81 20 116/47 98 Room Air Intake and Output 05/31/17 06/01/17 19:00 07:00 Intake Total 510 ml 350 ml Output Total 750 ml 150 ml Balance -240 ml 200 ml Intake Oral 510 ml Other 350 ml Output Urine Total 750 ml 150 ml General Appearance: WD/WN HEENT: normocephalic, atraumatic Respiratory/Chest: chest wall non-tender, lungs clear Cardiovascular: normal peripheral pulses, normal rate Abdomen: soft, non tender Genitourinary: normal external genitalia Laboratory Tests 06/01/17 03:50: White Blood Count 6.5, Red Blood Count 3.45L, Hemoglobin 11.3L, Hematocrit 34.0L , Mean Corpuscular Volume 98, Mean Corpuscular Hemoglobin 32.6H, Mean Corpuscular Hemoglobin Concent 33.2, Red Cell Distribution Width 12.9, Platelet Count 157, Mean Platelet Volume 6.4L, Neutrophils (%) (Auto) 64.1, Lymphocytes ( %) (Auto) 18.5L, Monocytes (%) (Auto) 12.7H, Eosinophils (%) (Auto) 4.4H, Basophils (%) (Auto) 0.3, Sodium Level 133L, Potassium Level 4.4, Chloride Level 94L, Carbon Dioxide Level 27, Anion Gap 12, Blood Urea Nitrogen 48H, Creatinine 6.3H, Estimat Glomerular Filtration Rate , Glucose Level 143H, Calcium Level 9.0 Current Medications Medications (Trade) Dose Ordered Sig/Amanda Route PRN Reason Start Time Stop Time Status Last Admin Dose Admin Acetaminophen (Tylenol) 650 mg Q4H PRN ORAL fever>100.5 05/31/17 10:00 06/30/17 09:59 05/31/17 18:07 Al Hydroxide/Mg Hydroxide (Mylanta II) 30 ml Q6H PRN ORAL dyspepsia 05/31/17 09:30 06/30/17 09:29 Allopurinol (Zyloprim) 100 mg DAILY ORAL 06/01/17 09:00 07/01/17 08:59 06/01/17 09:08 Amlodipine Besylate 5 mg 5 mg DAILY ORAL 06/02/17 09:00 07/02/17 08:59 Benazepril HCl (Lotensin) 25 mg DAILY ORAL 05/31/17 10:00 06/30/17 09:59 Carvedilol (Coreg) 6.25 mg Q12HR ORAL 05/31/17 21:00 06/30/17 20:59 Ceftriaxone Sodium/Dextrose (Rocephin/D5W) 55 ml @ 110 mls/hr Q24H IVPB 06/02/17 09:00 06/09/17 08:59 Clonidine HCl (Catapres) 0.2 mg TIDPRN PRN ORAL SBP > 160 05/31/17 09:30 06/30/17 09:29 Dextrose (Dextrose 50%) STAT PRN IV Hypoglycemia 05/31/17 09:30 06/30/17 09:29 Hydromorphone HCl (Dilaudid) 1 mg Q3H PRN IVP SEVERE PAIN 7-10 05/31/17 09:30 06/07/17 09:29 Insulin Aspart (NovoLOG) BEFORE MEALS AND HS SUBQ 05/31/17 11:30 06/30/17 11:29 06/01/17 17:17 Lorazepam (Ativan 2mg/ml 1ml) 0.5 mg Q4H PRN IV For Anxiety 05/31/17 10:00 06/07/17 09:59 Minoxidil (Loniten) 2.5 mg Q12HR ORAL 05/31/17 10:00 06/30/17 09:59 06/01/17 09:09 Mirtazapine (Remeron) 7.5 mg HSPRN PRN ORAL insomnia 05/31/17 19:45 06/30/17 19:44 Morphine Sulfate (Morphine Sulfate) 1 mg Q4H PRN IVP For Pain Scale 4-6 05/31/17 09:30 06/07/17 09:29 06/01/17 15:46 Ondansetron HCl (Zofran) 4 mg Q6H PRN IVP Nausea & Vomiting 05/31/17 09:30 06/30/17 09:29 Polyethylene Glycol (Miralax) 17 gm HSPRN PRN ORAL Constipation 05/31/17 21:00 06/30/17 20:59 Sevelamer Carbonate (Renvela) 800 mg THREE TIMES A DAY ORAL 05/31/17 13:00 06/30/17 12:59 06/01/17 17:16 Tamsulosin HCl (Flomax) 0.4 mg QHS ORAL 05/31/17 21:00 06/30/17 20:59 05/31/17 20:24 TERESO PINK Jun 01, 2017 19:59
[2017-06-01 20:00] VITALS: BP 96/65
[2017-06-01] MEDS: Tamsulosin 0.4mg cap ORAL SCH (20:40)
[2017-06-02] VITALS: BP 99/39
[2017-06-02 04:00] VITALS: BP 133/57
[2017-06-02] MEDS: NovoLOG Insulin Flexpen SUBQ SCH ×3 (05:42→16:57)
[2017-06-02 07:34] LABS: ANION GAP 12 (5-15); CALCIUM 8.8 mg/dL (8.6-10.2); CARBON DIOXIDE 26 mEQ/L (20-30); CHLORIDE 95 mEQ/L (98-107); CREATININE 5.3 mg/dL (0.7-1.2); HEMOLYSIS 5; POTASSIUM 4.2 mEQ/L (3.4-4.9); SODIUM 133 mEQ/L (135-145)
[2017-06-02 07:44] LABS: BASOPHILS % (AUTO) 0.5 % (0.0-2.0); EOSINOPHILS % (AUTO) 6.5 % (0.0-3.0); LYMPHOCYTES % (AUTO) 16.4 % (20.0-45.0); MEAN CORPUSCULAR HEMOGLOBIN 32.7 PG (27.0-31.0); MEAN CORPUSCULAR HGB CONC 32.8 G/DL (32.0-36.0); MEAN CORPUSCULAR VOLUME 100 FL (80-99); MEAN PLATELET VOLUME 6.8 FL (6.5-10.1); MONOCYTES % (AUTO) 7.2 % (1.0-10.0); NEUTROPHILS % (AUTO) 69.4 % (45.0-75.0); PLATELET COUNT 137 K/UL (150-450); RED BLOOD COUNT 3.08 M/UL (4.70-6.10); RED CELL DISTRIBUTION WIDTH 13.1 % (11.6-14.8); WHITE BLOOD COUNT 6.7 K/UL (4.8-10.8)
[2017-06-02 07:48] VITALS: BP 117/55
[2017-06-02] MEDS: Carvedilol 6.25mg Tab ORAL SCH (09:00)
[2017-06-02] MEDS ORDERED: cefTRIAXone 1 GM in D5W 55 ML IVPB SCH (09:00)
[2017-06-02] MEDS: Benazepril 10mg tab ORAL SCH (09:00)
--- NOTE | 2017-06-02 09:23 | Nephrology Progress Note ---
Assessment/Plan Assessment 1. End-stage renal disease. 2. Anemia of chronic kidney disease. 3. Renal osteodystrophy. 4. Hypertension. 5. Hematuria.due to bladder mass 6. History of kidney stone. Plan plan to continue dialysis ct of abdomen monitoring [facility] Subjective Subjective alert and awake had dialysis yesterday going to get ct of abdomen and pelvis Objective Objective Last 24 Hour Vital Signs Date Time Temp Pulse Resp B/P Pulse Ox O2 Delivery O2 Flow Rate FiO2 06/02/17 07:48 98.2 84 20 117/55 96 Room Air 06/02/17 04:00 97.8 92 20 133/57 97 Room Air 06/02/17 00:00 98.0 88 20 99/39 96 Room Air 06/01/17 20:46 96/65 06/01/17 20:45 96 96/65 06/01/17 20:00 98.2 94 20 96/65 92 Room Air 06/01/17 16:30 Room Air 06/01/17 16:16 98.4 06/01/17 16:00 98.2 96 17 111/46 96 Room Air 06/01/17 12:55 Room Air 06/01/17 11:55 98.4 90 20 108/52 97 Room Air Intake and Output 06/01/17 06/02/17 19:00 07:00 Intake Total 295 ml Output Total 2000 ml 250 ml Balance -1705 ml -250 ml Intake Oral 240 ml IV Total 55 ml Output Urine Total 250 ml Hemodialysis UF 2000 ml Laboratory Tests 06/02/17 06:15: White Blood Count 6.7, Red Blood Count 3.08L, Hemoglobin 10.1L, Hematocrit 30.7L , Mean Corpuscular Volume 100H, Mean Corpuscular Hemoglobin 32.7H, Mean Corpuscular Hemoglobin Concent 32.8, Red Cell Distribution Width 13.1, Platelet Count 137L, Mean Platelet Volume 6.8, Neutrophils (%) (Auto) 69.4, Lymphocytes ( %) (Auto) 16.4L, Monocytes (%) (Auto) 7.2, Eosinophils (%) (Auto) 6.5H, Basophils (%) (Auto) 0.5, Sodium Level 133L, Potassium Level 4.2, Chloride Level 95L, Carbon Dioxide Level 26, Anion Gap 12, Blood Urea Nitrogen 34H, Creatinine 5.3H, Estimat Glomerular Filtration Rate , Glucose Level 153H, Calcium Level 8.8 06/02/17 06:20: Chlamydia trachomatis RNA [Pending] Height (Feet): 5 Height (Inches): 10.00 Weight (Pounds): 227 Objective HEAD AND NECK: No JVP. No LAD. No thyromegaly. Extraocular movements intact. Pupils are reactive to light and accommodation. LUNGS: Clear to auscultation. CARDIAC: Regular rate and rhythm. S1 and S2. No murmur. No rub. ABDOMEN: Soft, nontender, and nondistended. EXTREMITIES: Bilateral [id number] amputation. No clubbing. No cyanosis. The patient has a Houser catheter draining some bloody urine. BRITTON EPPS Jun 02, 2017 09:23
[2017-06-02] MEDS: Minoxidil 2.5mg tab ORAL SCH (09:43)
[2017-06-02] MEDS: Allopurinol 100mg Tab ORAL SCH (09:44)
[2017-06-02] MEDS: Renvela 800mg Pkt ORAL SCH ×2 (09:44→13:00)
--- NOTE | 2017-06-02 10:15 | Consultation ---
DATE OF CONSULTATION: 06/01/2017 UROLOGY CONSULTATION CONSULTING PHYSICIAN: Dmitry Rose M.D. ATTENDING PHYSICIAN: Estelita Henriquez M.D. CHIEF COMPLAINT/HISTORY OF PRESENT ILLNESS: I was asked by Dr. Henriquez to evaluate this 82-year-old very pleasant gentleman regarding a history of gross hematuria and possible malpositioned Houser catheter. Briefly, the patient has renal failure and is on dialysis, who presented to the emergency room here with apparent history of copious hematuria. The patient was admitted for this and other medical issues. An ultrasound was done, which revealed that the catheter may be lodged in the urethra. As such given the above, I was asked to evaluate the patient. PAST MEDICAL HISTORY: 1. Chronic renal failure, on dialysis. 2. Diabetes. 3. Hypertension. 4. Anemia. 5. kidney stones. PAST SURGICAL HISTORY: Bilateral AKAs. MEDICATIONS: Please see the chart for current medications and administration details. Briefly, the patient was on cefepime for antibiotic coverage. ALLERGIES: No known drug allergies. SOCIAL HISTORY: Unremarkable for tobacco, alcohol, or drug use. FAMILY HISTORY: Noncontributory. REVIEW OF SYSTEMS: A 12-system review of systems was essentially unremarkable outside of what was described above. PHYSICAL EXAMINATION: GENERAL: The patient is an older gentleman, awake, alert, and oriented x4, very pleasant, no obvious distress. HEENT: NC/AT. EOMI. Oropharynx clear. NECK: Supple. Full range of motion. CHEST: Within normal limits. ABDOMEN: Soft, nontender, and nondistended. Somewhat obese. EXTREMITIES: Normal perfused. No cyanosis, clubbing, or edema. There are bilateral AKAs noted. NEUROLOGIC: Grossly nonfocal. GENITOURINARY: Reveals a circumcised male phallus with a Houser catheter in place with yellow clear urine output. There are bilateral descended testes and cord structures with no masses or tenderness to palpation. LABORATORY DATA: White blood cell count 6.5, hematocrit 34.0, and platelets 157,000. PT 10.7, INR 1.0, and PTT 31. Sodium 133, potassium 4.4, chloride 94, bicarbonate 27, BUN 48, creatinine 6.3, glucose 143, and calcium 9.0. Urinalysis, specific gravity 1.015, pH 9.0. Dip test is notable for 4+ protein, 2+ glucose, 5+ occult blood, and 2+ leukocyte esterase. Microanalysis with too numerous to count red blood cells per high-power field, 10 to 15 white blood cells per high-power field, and few bacteria seen. DIAGNOSTIC IMAGING: Renal ultrasound with prostatomegaly. There is possible malposition of Houser catheter. There is a trabeculated bladder chronic bladder outlet obstruction. There is a possible posterior bladder wall mass versus prominent trabeculation. There are bilateral renal cysts. There is no evidence of hydronephrosis. ASSESSMENT AND PLAN: In summary, the patient is an 82-year-old gentleman with a history of renal failure, on dialysis, who presents to the hospital with a history of gross hematuria. He has a previous history of kidney stones. His urine has mostly cleared here in the hospital, but in addition to the hematuria, it was felt that his Houser catheter is possibly in the wrong place and lodged in the urethra. Physical exam is essentially unremarkable outside of [facility], and the urine is clear. Laboratory data is notable for evidence of renal failure, gross hematuria, and possible urinary tract infection. Diagnostic imaging with ultrasound reveals the findings described above. At bedside, I deferred the patient's catheter balloon to advance the catheter up to the hub and reinflated the balloon. I then hand irrigated the catheter with return of pink clear irrigation fluid that appears to be in good position and after advancement, should not be in the urethra. Additionally, I will order a CT scan to evaluate for any stones or other sources of hematuria. As recommended, this will have to be done without contrast given his renal failure. Finally, I am going to start the patient on some finasteride in addition to his Flomax and Nephrocaps to urinate better and control hematuria if it is coming from his prostate. Thank you for allowing me to participate in the care of this nice gentleman. Please do not hesitate to contact me for any questions that you may further have regarding his care. I will be happy to continue to follow him with you as needed. Dmitry Rose M.D. DR: CLIF JOB#: [id number] CC:
[2017-06-02 11:39] VITALS: BP 119/49
--- NOTE | 2017-06-02 12:40 | Cardiology Report ---
APPROVED REPORT EKG Measurement Heart [id number] Normal sinus rhythm Normal ECG
--- NOTE | 2017-06-02 14:25 | Diagnostic Imaging Report ---
Indications: Abdominal/flank pain Technique: Continuous helical CT imaging of the abdomen and pelvis was performed with automatic exposure control on a Siemens sensation [address] scanner. Axial, coronal, and sagittal images were reconstructed at 3 mm slice thickness. No oral or IV contrast was administered per protocol. CTDI volume(s): 19 mGy Total DLP: 1107 mGy-cm Findings: Comparison: 02/17/2016. Single 3 mm stone again noted in upper pole of right kidney. 2 or more small cluster of stones measuring up to 7 mm again noted in the interpolar region of left kidney. No stone demonstrated in either ureter or within the urinary bladder. Bilateral renal collecting systems and ureters remain nondilated. Moderate stranding surrounding both kidneys unchanged. Circumscribed low-attenuation foci in both renal cortices unchanged. Asymmetric atrophy of the left kidney unchanged. Urinary bladder collapsed with Houesr catheter, again demonstrates suggestion of diffuse mural thickening. Indentation of its floor by enlarged prostate unchanged.. The appendix is unremarkable. The gastrointestinal tract is normal in caliber. No extraluminal gas or fluid collections are demonstrated. Small nodular calcifications again noted in the liver and spleen. Prominent arterial mural calcifications again noted. Vascular patency remains indeterminate. Small fat-containing umbilical hernia again noted. Remainder of visualized abdominopelvic anatomy demonstrates no other obvious abnormality, though lack of oral and IV contrast limits evaluation. Rounded parenchymal consolidation, calcification, and volume loss again noted in lower lobe of left lung, increased.. Adjacent left pleural effusion with pleural thickening and suggestion of loculation again noted. Nonspecific increased interstitial markings and right lung base unchanged. No right pleural abnormality demonstrated. Multilevel disc space narrowing with marginal osteophyte formation, vacuum phenomenon, discogenic sclerosis again noted in lumbar, lower thoracic spine. Facet sclerosis and hypertrophy again noted in lower lumbar spine. Bilateral hip joint narrowing again noted. IMPRESSION: Stable bilateral nonobstructive nephrolithiasis. No evidence of ureterolithiasis, hydronephrosis or hydroureter . No other evidence of acute abdominopelvic disease. Lack of oral and IV contrast limits evaluation, however, and subtle abnormalities may be missed. Repeat CT scan with full oral and IV contrast preparation recommended for more complete evaluation, as clinically indicated. Stable chronic findings including hepatosplenic and left lung base old granulomatous disease, bilateral renal cortical masses likely cysts, bilateral perinephric stranding likely relating to chronic kidney disease, asymmetric left renal cortical atrophy suggesting long-standing renal artery stenosis, prominent arteriosclerosis, fat-containing umbilical hernia, prostate gland enlargement, suggestion of mural thickening of urinary bladder likely hypertrophic Increase in left pulmonary lower lobe atelectasis. Superimposed pneumonia and/or lung mass not excludable. Persistent left pleural effusion with pleural thickening, suggestion of loculation Degenerative spondylosis Bilateral hip degenerative arthropathy The CT scanner at [facility] is accredited by the [employer] and the scans are performed using protocols designed to limit radiation exposure to as low as reasonably achievable to attain images of sufficient resolution adequate for diagnostic evaluation.
--- NOTE | 2017-06-02 15:11 | General Progress Note ---
Assessment/Plan Problem List: (1) Renal failure (ARF), acute on chronic ICD Codes: N17.9 - Acute kidney failure, unspecified; N18.9 - Chronic kidney disease, unspecified SNOMED: 784429780 (2) CKD (chronic kidney disease) stage 3, GFR 30-59 ml/min ICD Codes: N18.3 - Chronic kidney disease, stage 3 (moderate) SNOMED: 298897488 (3) Hematuria ICD Codes: R31.9 - Hematuria SNOMED: 39997075 Qualifiers: Qualified Codes: R31.9 - Hematuria, unspecified (4) DM (diabetes mellitus) ICD Codes: E11.9 - DM (diabetes mellitus) SNOMED: 32939041 Status: stable, progressing, tolerating diet Assessment/Plan ot pt diet abx cbc bmp am uro and heme eval dc plan Subjective Constitutional: Reports: weakness Allergies: Coded Allergies: No Known Allergies (Unverified , 08/12/14) All Systems: reviewed and negative except above Subjective weak calm Objective Last 24 Hour Vital Signs Date Time Temp Pulse Resp B/P Pulse Ox O2 Delivery O2 Flow Rate FiO2 06/02/17 11:39 98.0 84 21 119/49 96 Room Air 06/02/17 09:43 117/55 06/02/17 09:00 84 117/55 06/02/17 09:00 84 117/55 06/02/17 09:00 117/55 06/02/17 07:48 98.2 84 20 117/55 96 Room Air 06/02/17 04:00 97.8 92 20 133/57 97 Room Air 06/02/17 00:00 98.0 88 20 99/39 96 Room Air 06/01/17 20:46 96/65 06/01/17 20:45 96 96/65 06/01/17 20:00 98.2 94 20 96/65 92 Room Air 06/01/17 16:30 Room Air 06/01/17 16:16 98.4 06/01/17 16:00 98.2 96 17 111/46 96 Room Air Intake and Output 06/01/17 06/02/17 19:00 07:00 Intake Total 295 ml Output Total 2000 ml 250 ml Balance -1705 ml -250 ml Intake Oral 240 ml IV Total 55 ml Output Urine Total 250 ml Hemodialysis UF 2000 ml Laboratory Tests 06/02/17 06:15: White Blood Count 6.7, Red Blood Count 3.08L, Hemoglobin 10.1L, Hematocrit 30.7L , Mean Corpuscular Volume 100H, Mean Corpuscular Hemoglobin 32.7H, Mean Corpuscular Hemoglobin Concent 32.8, Red Cell Distribution Width 13.1, Platelet Count 137L, Mean Platelet Volume 6.8, Neutrophils (%) (Auto) 69.4, Lymphocytes ( %) (Auto) 16.4L, Monocytes (%) (Auto) 7.2, Eosinophils (%) (Auto) 6.5H, Basophils (%) (Auto) 0.5, Sodium Level 133L, Potassium Level 4.2, Chloride Level 95L, Carbon Dioxide Level 26, Anion Gap 12, Blood Urea Nitrogen 34H, Creatinine 5.3H, Estimat Glomerular Filtration Rate , Glucose Level 153H, Calcium Level 8.8 06/02/17 06:20: Chlamydia trachomatis RNA [Pending] Height (Feet): 5 Height (Inches): 10.00 Weight (Pounds): 227 General Appearance: lethargic EENT: normal ENT inspection Neck: normal alignment Cardiovascular: normal peripheral pulses, normal rate, regular rhythm Respiratory/Chest: chest wall non-tender, lungs clear, normal breath sounds Abdomen: normal bowel sounds, non tender, soft Extremities: normal inspection Edema: no edema noted Arm (L), no edema noted Arm (R), no edema noted Leg (L), no edema noted Leg (R), no edema noted Pedal (L), no edema noted Pedal (R), no edema noted Generalized Neurologic: responsive, motor weakness Skin: normal pigmentation, warm/dry YNES LIN Jun 02, 2017 15:11
--- NOTE | 2017-06-02 15:44 | Infectious Diseases Prog Note ---
Assessment/Plan Problems: (1) Hematuria Assessment & Plan: due to nephrolithiasis , and possible bladder mass, evaluated by urology , recommend cystoscopy and biopsy . continue antibiotics (2) UTI (lower urinary tract infection) Assessment & Plan: due to strep spp alpha hemolytics , on ceftriaxon . will treat for 7 days (3) Dysuria Assessment & Plan: due to uti and enlarged prostate , will screen for HIV, syphilis, gonorrhea and chlamydia, recommend cystoscopy for further evaluation (4) DM (diabetes mellitus) Assessment & Plan: recommend tight glycemic control to keep blood glucose between 80-120 (5) ESRD (end stage renal disease) on dialysis Assessment & Plan: on HD, renal is following (6) Acute thromboembolism of right popliteal vein Assessment & Plan: recommend anticoagulation and IVF filter if continues to have hematuria , recommend hematology consult (7) Pleural effusion, left Assessment & Plan: recommend thoracentesis and fluids to be sent for culture, gram stain, fungal and AFB . and cytology Subjective Constitutional: Reports: no symptoms HEENT: Reports: no symptoms Respiratory: Reports: no symptoms Breasts: Reports: no symptoms Cardiovascular: Reports: no symptoms Gastrointestinal/Abdominal: Reports: no symptoms Genitourinary: Reports: no symptoms Neurologic: Reports: no symptoms Psychiatric: Reports: no symptoms Skin: Reports: no symptoms Allergies: Coded Allergies: No Known Allergies (Unverified , 08/12/14) Objective Vital Signs Last 24 Hour Vital Signs Date Time Temp Pulse Resp B/P Pulse Ox O2 Delivery O2 Flow Rate FiO2 06/02/17 11:39 98.0 84 21 119/49 96 Room Air 06/02/17 09:43 117/55 06/02/17 09:00 84 117/55 06/02/17 09:00 84 117/55 06/02/17 09:00 117/55 06/02/17 07:48 98.2 84 20 117/55 96 Room Air 06/02/17 04:00 97.8 92 20 133/57 97 Room Air 06/02/17 00:00 98.0 88 20 99/39 96 Room Air 06/01/17 20:46 96/65 06/01/17 20:45 96 96/65 06/01/17 20:00 98.2 94 20 96/65 92 Room Air 06/01/17 16:30 Room Air 8/16/17 16:16 98.4 06/01/17 16:00 98.2 96 17 111/46 96 Room Air Height (Feet): 5 Height (Inches): 10.00 Weight (Pounds): 227 General Appearance: WD/WN, no acute distress HEENT: normocephalic, atraumatic, anicteric, mucous membranes moist, PERRL Respiratory/Chest: chest wall non-tender, lungs clear, normal breath sounds, no respiratory distress, no accessory muscle use Cardiovascular: normal peripheral pulses, normal rate, regular rhythm, no gallop/murmur, no JVD Abdomen: normal bowel sounds, soft, non tender, no organomegaly, non distended , no mass, no scars Extremities: no cyanosis, no clubbing Skin: no rash, no lesions, no ulcers Musculoskeletal: normal muscle bulk Laboratory Tests Test 06/02/17 06:15 06/02/17 06:20 White Blood Count 6.7 K/UL (4.8-10.8) Red Blood Count 3.08 M/UL (4.70-6.10) L Hemoglobin 10.1 G/DL (14.2-18.0) L Hematocrit 30.7 % (42.0-52.0) L Mean Corpuscular Volume 100 FL (80-99) H Mean Corpuscular Hemoglobin 32.7 PG (27.0-31.0) H Mean Corpuscular Hemoglobin Concent 32.8 G/DL (32.0-36.0) Red Cell Distribution Width 13.1 % (11.6-14.8) Platelet Count 137 K/UL (150-450) L Mean Platelet Volume 6.8 FL (6.5-10.1) Neutrophils (%) (Auto) 69.4 % (45.0-75.0) Lymphocytes (%) (Auto) 16.4 % (20.0-45.0) L Monocytes (%) (Auto) 7.2 % (1.0-10.0) Eosinophils (%) (Auto) 6.5 % (0.0-3.0) H Basophils (%) (Auto) 0.5 % (0.0-2.0) Sodium Level 133 mEQ/L (135-145) L Potassium Level 4.2 mEQ/L (3.4-4.9) Chloride Level 95 mEQ/L (98-107) L Carbon Dioxide Level 26 mEQ/L (20-30) Anion Gap 12 (5-15) Blood Urea Nitrogen 34 mg/dL (7-23) H Creatinine 5.3 mg/dL (0.7-1.2) H Estimat Glomerular Filtration Rate mL/min (>60) Glucose Level 153 mg/dL (74-106) H Calcium Level 8.8 mg/dL (8.6-10.2) Chlamydia trachomatis RNA Pending Current Medications Medications (Trade) Dose Ordered Sig/Amanda Route PRN Reason Start Time Stop Time Status Last Admin Dose Admin Acetaminophen (Tylenol) 650 mg Q4H PRN ORAL fever>100.5 05/31/17 10:00 06/30/17 09:59 05/31/17 18:07 Al Hydroxide/Mg Hydroxide (Mylanta II) 30 ml Q6H PRN ORAL dyspepsia 05/31/17 09:30 06/30/17 09:29 Allopurinol (Zyloprim) 100 mg DAILY ORAL 06/01/17 09:00 07/01/17 08:59 06/02/17 09:44 Amlodipine Besylate 5 mg 5 mg DAILY ORAL 06/02/17 09:00 07/02/17 08:59 Benazepril HCl (Lotensin) 25 mg DAILY ORAL 05/31/17 10:00 06/30/17 09:59 Carvedilol (Coreg) 6.25 mg Q12HR ORAL 05/31/17 21:00 06/30/17 20:59 Ceftriaxone Sodium/Dextrose (Rocephin/D5W) 55 ml @ 110 mls/hr Q24H IVPB 06/02/17 09:00 06/09/17 08:59 06/02/17 09:42 Clonidine HCl (Catapres) 0.2 mg TIDPRN PRN ORAL SBP > 160 05/31/17 09:30 06/30/17 09:29 Dextrose (Dextrose 50%) STAT PRN IV Hypoglycemia 05/31/17 09:30 06/30/17 09:29 Finasteride (Proscar) 5 mg DAILY ORAL 06/02/17 09:00 07/02/17 08:59 Hydromorphone HCl (Dilaudid) 1 mg Q3H PRN IVP SEVERE PAIN 7-10 05/31/17 09:30 06/07/17 09:29 Insulin Aspart (NovoLOG) BEFORE MEALS AND HS SUBQ 05/31/17 11:30 06/30/17 11:29 06/01/17 20:44 Lorazepam (Ativan 2mg/ml 1ml) 0.5 mg Q4H PRN IV For Anxiety 05/31/17 10:00 06/07/17 09:59 Minoxidil (Loniten) 2.5 mg Q12HR ORAL 05/31/17 10:00 06/30/17 09:59 06/02/17 09:43 Mirtazapine (Remeron) 7.5 mg HSPRN PRN ORAL insomnia 05/31/17 19:45 06/30/17 19:44 Morphine Sulfate (Morphine Sulfate) 1 mg Q4H PRN IVP For Pain Scale 4-6 05/31/17 09:30 06/07/17 09:29 06/01/17 15:46 Ondansetron HCl (Zofran) 4 mg Q6H PRN IVP Nausea & Vomiting 05/31/17 09:30 06/30/17 09:29 Polyethylene Glycol (Miralax) 17 gm HSPRN PRN ORAL Constipation 05/31/17 21:00 06/30/17 20:59 Sevelamer Carbonate (Renvela) 800 mg THREE TIMES A DAY ORAL 05/31/17 13:00 06/30/17 12:59 06/02/17 09:44 Tamsulosin HCl (Flomax) 0.4 mg QHS ORAL 05/31/17 21:00 06/30/17 20:59 06/01/17 20:40 Christin Riley M.D. Jun 02, 2017 15:44
[2017-06-02 16:00] VITALS: BP 96/40
--- NOTE | 2017-06-02 16:07 | General Progress Note ---
Assessment/Plan Status: stable Assessment/Plan cont remeron cont ativan Subjective Constitutional: Reports: malaise, weakness Neurologic/Psychiatric: Reports: anxiety, emotional problems Allergies: Coded Allergies: No Known Allergies (Unverified , 08/12/14) Subjective the pt less anxious. sleep adequate Objective Last 24 Hour Vital Signs Date Time Temp Pulse Resp B/P Pulse Ox O2 Delivery O2 Flow Rate FiO2 06/02/17 11:39 98.0 84 21 119/49 96 Room Air 06/02/17 09:43 117/55 06/02/17 09:00 84 117/55 06/02/17 09:00 84 117/55 06/02/17 09:00 117/55 06/02/17 07:48 98.2 84 20 117/55 96 Room Air 06/02/17 04:00 97.8 92 20 133/57 97 Room Air 06/02/17 00:00 98.0 88 20 99/39 96 Room Air 06/01/17 20:46 96/65 06/01/17 20:45 96 96/65 06/01/17 20:00 98.2 94 20 96/65 92 Room Air 06/01/17 16:30 Room Air 06/01/17 16:16 98.4 Intake and Output 06/01/17 06/02/17 19:00 07:00 Intake Total 295 ml Output Total 2000 ml 250 ml Balance -1705 ml -250 ml Intake Oral 240 ml IV Total 55 ml Output Urine Total 250 ml Hemodialysis UF 2000 ml Laboratory Tests 06/02/17 06:15: White Blood Count 6.7, Red Blood Count 3.08L, Hemoglobin 10.1L, Hematocrit 30.7L , Mean Corpuscular Volume 100H, Mean Corpuscular Hemoglobin 32.7H, Mean Corpuscular Hemoglobin Concent 32.8, Red Cell Distribution Width 13.1, Platelet Count 137L, Mean Platelet Volume 6.8, Neutrophils (%) (Auto) 69.4, Lymphocytes ( %) (Auto) 16.4L, Monocytes (%) (Auto) 7.2, Eosinophils (%) (Auto) 6.5H, Basophils (%) (Auto) 0.5, Sodium Level 133L, Potassium Level 4.2, Chloride Level 95L, Carbon Dioxide Level 26, Anion Gap 12, Blood Urea Nitrogen 34H, Creatinine 5.3H, Estimat Glomerular Filtration Rate , Glucose Level 153H, Calcium Level 8.8 06/02/17 06:20: Chlamydia trachomatis RNA [Pending] Height (Feet): 5 Height (Inches): 10.00 Weight (Pounds): 227 General Appearance: no apparent distress, alert Neurologic: alert, oriented x 3, responsive, depressed affect Chilango Young M.D. Jun 02, 2017 16:07
--- NOTE | 2017-06-02 16:18 | Pulmonology Progress Note ---
Assessment/Plan Problems: (1) Pleural effusion, left Assessment & Plan: chronic, pleural effusios are very common in pts with ESRF and CHF (2) Hematuria Assessment & Plan: resolved (3) Anemia in CKD (chronic kidney disease) (4) DM (diabetes mellitus) (5) ESRD (end stage renal disease) on dialysis (6) History of below knee amputation Assessment/Plan titrate fio2 to sat of 92 gilbert was dced and pt is able to unrinate continue current meds all notes reviewed small right popliteal thormbus, recommend repeat US in 1-2 weeks dvt prophylaxis Subjective ROS Limited/Unobtainable: No Constitutional: Reports: no symptoms Respiratory: Reports: no symptoms Cardiovascular: Reports: no symptoms Allergies: Coded Allergies: No Known Allergies (Unverified , 08/12/14) Objective Last 24 Hour Vital Signs Date Time Temp Pulse Resp B/P Pulse Ox O2 Delivery O2 Flow Rate FiO2 06/02/17 11:39 98.0 84 21 119/49 96 Room Air 06/02/17 09:43 117/55 06/02/17 09:00 84 117/55 06/02/17 09:00 84 117/55 06/02/17 09:00 117/55 06/02/17 07:48 98.2 84 20 117/55 96 Room Air 06/02/17 04:00 97.8 92 20 133/57 97 Room Air 06/02/17 00:00 98.0 88 20 99/39 96 Room Air 06/01/17 20:46 96/65 06/01/17 20:45 96 96/65 06/01/17 20:00 98.2 94 20 96/65 92 Room Air 06/01/17 16:30 Room Air Intake and Output 06/01/17 06/02/17 19:00 07:00 Intake Total 295 ml Output Total 2000 ml 250 ml Balance -1705 ml -250 ml Intake Oral 240 ml IV Total 55 ml Output Urine Total 250 ml Hemodialysis UF 2000 ml General Appearance: WD/WN HEENT: normocephalic, anicteric Respiratory/Chest: chest wall non-tender, lungs clear Cardiovascular: normal peripheral pulses, normal rate Abdomen: normal bowel sounds, soft, non tender Extremities: no cyanosis Skin: no rash, no ulcers Laboratory Tests 06/02/17 06:15: White Blood Count 6.7, Red Blood Count 3.08L, Hemoglobin 10.1L, Hematocrit 30.7L , Mean Corpuscular Volume 100H, Mean Corpuscular Hemoglobin 32.7H, Mean Corpuscular Hemoglobin Concent 32.8, Red Cell Distribution Width 13.1, Platelet Count 137L, Mean Platelet Volume 6.8, Neutrophils (%) (Auto) 69.4, Lymphocytes ( %) (Auto) 16.4L, Monocytes (%) (Auto) 7.2, Eosinophils (%) (Auto) 6.5H, Basophils (%) (Auto) 0.5, Sodium Level 133L, Potassium Level 4.2, Chloride Level 95L, Carbon Dioxide Level 26, Anion Gap 12, Blood Urea Nitrogen 34H, Creatinine 5.3H, Estimat Glomerular Filtration Rate , Glucose Level 153H, Calcium Level 8.8 06/02/17 06:20: Chlamydia trachomatis RNA [Pending] Current Medications Medications (Trade) Dose Ordered Sig/Amanda Route PRN Reason Start Time Stop Time Status Last Admin Dose Admin Acetaminophen (Tylenol) 650 mg Q4H PRN ORAL fever>100.5 05/31/17 10:00 06/30/17 09:59 05/31/17 18:07 Al Hydroxide/Mg Hydroxide (Mylanta II) 30 ml Q6H PRN ORAL dyspepsia 05/31/17 09:30 06/30/17 09:29 Allopurinol (Zyloprim) 100 mg DAILY ORAL 06/01/17 09:00 07/01/17 08:59 06/02/17 09:44 Amlodipine Besylate 5 mg 5 mg DAILY ORAL 06/02/17 09:00 07/02/17 08:59 Benazepril HCl (Lotensin) 25 mg DAILY ORAL 05/31/17 10:00 06/30/17 09:59 Carvedilol (Coreg) 6.25 mg Q12HR ORAL 05/31/17 21:00 06/30/17 20:59 Ceftriaxone Sodium/Dextrose (Rocephin/D5W) 55 ml @ 110 mls/hr Q24H IVPB 06/02/17 09:00 06/09/17 08:59 06/02/17 09:42 Clonidine HCl (Catapres) 0.2 mg TIDPRN PRN ORAL SBP > 160 05/31/17 09:30 06/30/17 09:29 Dextrose (Dextrose 50%) STAT PRN IV Hypoglycemia 05/31/17 09:30 06/30/17 09:29 Finasteride (Proscar) 5 mg DAILY ORAL 06/02/17 09:00 07/02/17 08:59 Hydromorphone HCl (Dilaudid) 1 mg Q3H PRN IVP SEVERE PAIN 7-10 05/31/17 09:30 06/07/17 09:29 Insulin Aspart (NovoLOG) BEFORE MEALS AND HS SUBQ 05/31/17 11:30 06/30/17 11:29 06/01/17 20:44 Lorazepam (Ativan 2mg/ml 1ml) 0.5 mg Q4H PRN IV For Anxiety 05/31/17 10:00 06/07/17 09:59 Minoxidil (Loniten) 2.5 mg Q12HR ORAL 05/31/17 10:00 06/30/17 09:59 06/02/17 09:43 Mirtazapine (Remeron) 7.5 mg HSPRN PRN ORAL insomnia 05/31/17 19:45 06/30/17 19:44 Morphine Sulfate (Morphine Sulfate) 1 mg Q4H PRN IVP For Pain Scale 4-6 05/31/17 09:30 06/07/17 09:29 06/01/17 15:46 Ondansetron HCl (Zofran) 4 mg Q6H PRN IVP Nausea & Vomiting 05/31/17 09:30 06/30/17 09:29 Polyethylene Glycol (Miralax) 17 gm HSPRN PRN ORAL Constipation 05/31/17 21:00 06/30/17 20:59 Sevelamer Carbonate (Renvela) 800 mg THREE TIMES A DAY ORAL 05/31/17 13:00 06/30/17 12:59 06/02/17 09:44 Tamsulosin HCl (Flomax) 0.4 mg QHS ORAL 05/31/17 21:00 06/30/17 20:59 06/01/17 20:40 Warfarin Sodium (Coumadin per pharmacy) 1 ea DAILY PRN MISC Per rx protocol 06/02/17 16:15 07/02/17 16:14 TERESO NICHOLS Jun 02, 2017 16:18
--- NOTE | 2017-06-02 16:20 | General Progress Note ---
Assessment/Plan Assessment/Plan 1. Deep venous thrombosis in the R popliteal vein --> has been started on coumadin per pharmacy protocol 2. Anemia 2/2 hematuria --> possible bladder mass --> anemia work up ordered, ferritin is elevated. No need for IV iron 3.Houser catheter malplacement. --> urology following 4. Anemia of chronic kidney disease, on dialysis. 5. Decreased hemoglobin and hematocrit for gastrointestinal bleed. Occult blood is pending. 6. End-stage renal disease on hemodialysis. 7. Hypertension. 8. Enlarged prostate. 9. Increasing benign prostatic hypertrophy versus prostate neoplasm. Urology followup. 10. Possible posterior bladder wall thickening. Subjective Constitutional: Reports: no symptoms HEENT: Reports: no symptoms Cardiovascular: Reports: no symptoms Respiratory: Reports: no symptoms Gastrointestinal/Abdominal: Reports: no symptoms Genitourinary: Reports: no symptoms Neurologic/Psychiatric: Reports: no symptoms Endocrine: Reports: no symptoms Hematologic/Lymphatic: Reports: no symptoms Allergies: Coded Allergies: No Known Allergies (Unverified , 08/12/14) Subjective appears weak Objective Last 24 Hour Vital Signs Date Time Temp Pulse Resp B/P Pulse Ox O2 Delivery O2 Flow Rate FiO2 06/02/17 11:39 98.0 84 21 119/49 96 Room Air 06/02/17 09:43 117/55 06/02/17 09:00 84 117/55 06/02/17 09:00 84 117/55 06/02/17 09:00 117/55 06/02/17 07:48 98.2 84 20 117/55 96 Room Air 06/02/17 04:00 97.8 92 20 133/57 97 Room Air 06/02/17 00:00 98.0 88 20 99/39 96 Room Air 06/01/17 20:46 96/65 06/01/17 20:45 96 96/65 06/01/17 20:00 98.2 94 20 96/65 92 Room Air 06/01/17 16:30 Room Air 06/01/17 16:16 98.4 Intake and Output 06/01/17 06/02/17 19:00 07:00 Intake Total 295 ml Output Total 2000 ml 250 ml Balance -1705 ml -250 ml Intake Oral 240 ml IV Total 55 ml Output Urine Total 250 ml Hemodialysis UF 2000 ml Laboratory Tests 06/02/17 06:15: White Blood Count 6.7, Red Blood Count 3.08L, Hemoglobin 10.1L, Hematocrit 30.7L , Mean Corpuscular Volume 100H, Mean Corpuscular Hemoglobin 32.7H, Mean Corpuscular Hemoglobin Concent 32.8, Red Cell Distribution Width 13.1, Platelet Count 137L, Mean Platelet Volume 6.8, Neutrophils (%) (Auto) 69.4, Lymphocytes ( %) (Auto) 16.4L, Monocytes (%) (Auto) 7.2, Eosinophils (%) (Auto) 6.5H, Basophils (%) (Auto) 0.5, Sodium Level 133L, Potassium Level 4.2, Chloride Level 95L, Carbon Dioxide Level 26, Anion Gap 12, Blood Urea Nitrogen 34H, Creatinine 5.3H, Estimat Glomerular Filtration Rate , Glucose Level 153H, Calcium Level 8.8 06/02/17 06:20: Chlamydia trachomatis RNA [Pending] Height (Feet): 5 Height (Inches): 10.00 Weight (Pounds): 227 General Appearance: no apparent distress EENT: normal ENT inspection Neck: supple Cardiovascular: normal peripheral pulses Respiratory/Chest: chest wall non-tender Abdomen: no mass Extremities: non-tender Edema: no edema noted Pedal (L), no edema noted Pedal (R) Neurologic: normal mood/affect Skin: normal pigmentation Landry Gannon Jun 02, 2017 16:20
[2017-06-02] MEDS ORDERED: Warfarin Sodium 5mg ORAL SCH (17:00)
[2017-06-02] MEDS ORDERED: NS 275ml ONE (18:17)
[2017-06-02] MEDS ORDERED: Tubing IV Secondary IV ONE (18:17)
--- NOTE | 2017-06-03 15:10 | Discharge Summary ---
Discharge Summary Hospital Course Date of Admission May 29, 2017 at 13:55 Date of Discharge Jun 02, 2017 at 18:18 Admitting Diagnosis HEMATURIA HPI Alo Jr Barrett is a 82 year old male who was admitted on May 29, 2017 at 13: 55 for Hematuria Hospital Course [id number] Discharge Discharge Disposition Patient was discharged to Home with Discharge Diagnoses: Shaina Fletcher NP Jun 03, 2017 15:10
--- NOTE | 2017-06-03 22:30 | Discharge Summary 2 SIG ---
DATE OF ADMISSION: 05/29/2017 DATE OF DISCHARGE: 06/02/2017 CONSULTANTS: 1. Landry Gannon M.D. 2. Estelita Henriquez M.D. 3. Chilango Young M.D. 4. Christin Riley M.D. 5. Dmitry Rose M.D. 6. Franklyn Mckeon M.D. 7. Jaida Garzon M.D. BRIEF HOSPITAL COURSE: The patient is an 82-year-old male, who presented from home, went to [facility] complaining of hematuria for the past few days and also complaining of dysuria. There was no fever. Denies chills, nausea, and vomiting. Pain was 5/10, which was described to be throbbing and nonradiating. He has past medical history significant for diabetes mellitus, hypertension, and end-stage renal failure on hemodialysis, MWF. On arrival to ED, the patient came in with a Houser catheter and was noted to have bloody urine. BUN was 42 and creatinine was 5.3. Urinalysis was with urine RBC too many to count and urine WBC 10 to 15 per HPF. There was 5+ occult blood. Hemoglobin was 11.9 and hematocrit was 37. Chest x-ray done showed cardiomegaly with a large left pleural effusion similar to prior studies. EKG was in normal sinus rhythm. He was then admitted to telemetry for evaluation of hematuria and urinary tract infection. He was started empirically on cefepime pending culture results. He was followed by Dr. Garzon for inpatient hemodialysis and electrolyte imbalance. Blood pressure was elevated to 189/95. The patient had accelerated hypertension and carvedilol was continued and hydralazine was discontinued instead was given minoxidil and amlodipine. He was continued on aspirin and atorvastatin. LDL was 77. Echocardiogram done showed left ventricular ejection fraction 60% to 65% with mild left ventricular hypertrophy and normal ventricular size, function, and wall motion. He was diagnosed to have anxiety disorder and was given Remeron and Ativan p.r.n. for anxiety and insomnia. He underwent venous duplex of lower extremity and showed acute thrombus in the right leg. Dr. Gannon was consulted and was given Coumadin. Anemia was assessed to be secondary to hematuria. Anemia workup done showed elevated ferritin. No need for supplemental intravenous iron. Renal ultrasound showed prostatomegaly. CT of the abdomen and pelvis showed bilateral nonobstructive nephrolithiasis with no evidence of hydronephrosis or hydroureter. Per urologist, hematuria cleared and it was felt that the Houser catheter was possibly misplaced in the urethra. Physical examination was essentially unremarkable and Houser catheter was deflated, advanced, and reinflated, and irrigation done showed retain of pink clear irrigation fluid. Houser appeared to be in good position after advancement and he was started on Proscar in addition to Flomax and Nephrocaps. He underwent physical therapy and occupational therapy and was eventually discharged home with home health. FINAL DIAGNOSES: 1. Acute gross hematuria secondary to malposition Houser catheter. 2. Acute deep venous thrombosis on the right leg. 3. Acute anemia secondary to hematuria. 4. Anemia of chronic disease. 5. End-stage renal disease, on hemodialysis. 6. Hypertension. 7. Benign prostatic hypertrophy. 8. Chronic kidney disease stage 3. 9. Diabetes mellitus. 10. Pleural effusion on the left lung. 11. Anxiety disorder. 12. Insomnia. 13. 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 14. Anemia of chronic kidney disease. 15. Renal osteodystrophy. DISPOSITION: The patient was discharged home with home health. DISCHARGE MEDICATIONS: Refer to med list. FOLLOWUP: Follow up with PCP in a week. ACTIVITY: As tolerated. Varun Cee D.O. I have been assigned to dictate discharge summary on this account and I was not involved in the patient's management. Shaina Fletcher N.P. DR: JORGE JOB#: [id number] CC: TRISTAN
--- NOTE | 2017-06-05 18:00 | Diagnostic Imaging Report ---
APPROVED REPORT CPT Code: 84385 Present Symptoms Comments: R/O DVT Post BLE below the knee amputation BLE RIGHT LEG: Venous imaging reveals acute thrombus in the right popliteal vein. Imaging also reveals patency of the common femoral vein. LEFT LEG: Venous imaging reveals a patent deep venous system. There is no evidence of thrombus within the femoral, and popliteal veins. The greater saphenous vein is also within normal limits. Doppler indicates normal spontaneous flow within these segments. RN. Escobedo was notified of abnormal results at 08:45 hours.
== END 2017-06-02 18:18 | disposition home health service (06) | DRG 698 ==
LOC: EMR 13:10 → 2E 13:55 → EDBEDREQ 14:16 → EDBEDREQSVC 14:29 → 4E 05-31 09:18
PROC: 5A1D60Z (ICD-10-PCS; principal; 2017-05-30)
DX: T83.021A Displacement of indwelling urethral catheter, initial encounter (principal); N18.6 End stage renal disease; J90 Pleural effusion, not elsewhere classified; N17.9 Acute kidney failure, unspecified; I12.0 Hypertensive chronic kidney disease with stage 5 chronic kidney disease or end stage renal disease; I82.431 Acute embolism and thrombosis of right popliteal vein; N39.0 Urinary tract infection, site not specified; D63.1 Anemia in chronic kidney disease; R31.9 Hematuria, unspecified; Z99.2 Dependence on renal dialysis; N40.0 Benign prostatic hyperplasia without lower urinary tract symptoms; I73.9 Peripheral vascular disease, unspecified; Z89.512 Acquired absence of left leg below knee; Z89.511 Acquired absence of right leg below knee; Z87.442 Personal history of urinary calculi; F41.9 Anxiety disorder, unspecified; B95.7 Other staphylococcus as the cause of diseases classified elsewhere; G47.00 Insomnia, unspecified; E11.22 Type 2 diabetes mellitus with diabetic chronic kidney disease; Z79.4 Long term (current) use of insulin; E78.5 Hyperlipidemia, unspecified; N20.0 Calculus of kidney
CPT/HCPCS: 36415; 71010; 74176; 76775; 80048; 80053; 80061; 81003; 82378; 82550; 82553; 82607; 82728; 82746; 82962; 83540; 83550; 83605; 83615; 83970; 84100; 84484; 85007; 85025; 85044; 85060; 85610; 85651; 85730; 86592; 86703; 87040; 87081; 87086; 87181; 87491; 93005; 93306; 93970; 96360; 96361; 96375; 97803; J1815